=== PATIENT | female | born 1940 | race Caucasian/White ===

== ENCOUNTER 2017-07-14 07:18 | Observation (INO) ==
--- NOTE | 2017-07-14 07:29 | Emergency Department Note ---
Disposition Clinical Impression: NSTEMI (non-ST elevated myocardial infarction), New onset a-fib Disposition: Admitted As Inpatient Condition: Good General Adult HPI - General Stated complaint: Chest pain, MAGO Time Seen by Provider: 07/14/17 07:21 Source: EMS Limitations: no limitations - History of Present Illness Pain Scale: 8 - Related Data Home Medications Medication Instructions Recorded Confirmed Albuterol Sulfate [Proair Hfa] 2 puff IH Q4H PRN 07/14/17 07/14/17 Amlodipine Besylate 10 mg PO DAILY 07/14/17 07/14/17 Furosemide [Lasix] 20 mg PO BID 07/14/17 07/14/17 Gabapentin [Neurontin] 300 mg PO TID 07/14/17 07/14/17 Levothyroxine Sodium [Levoxyl] 50 mcg PO DAILY 07/14/17 07/14/17 Metoprolol Tartrate [Lopressor] 50 mg PO DAILY 07/14/17 07/14/17 [place]-3 Fatty Acids [Fish Oil 3,000 mg PO DAILY 07/14/17 07/14/17 Concentrate] Omeprazole [PriLOSEC] 20 mg PO BIDAC 07/14/17 07/14/17 Potassium Chloride [K-Tab ER] 20 meq PO BID 07/14/17 07/14/17 Sulfamethoxazole/Trimeth DS 1 tab PO Q48H 07/14/17 07/14/17 [Bactrim DS] traZODone [TraZODone] 150 mg PO HS 07/14/17 07/14/17 Allergies Allergy/AdvReac Type Severity Reaction Status Date / Time lisinopril Allergy Difficulty Verified 07/14/17 09:29 Breathing meloxicam Allergy Cough Verified 07/14/17 09:29 Awytwhw-Zwy-Izf Reductase Allergy Difficulty Verified 07/14/17 09:29 Inhibitor Swallowing [Statins] Past Medical History - Past Medical History Medical history: Reports: asthma, CHF, COPD, GERD, hyperlipidemia, hypertension , thyroid disease HAMMERER HELPER history: Reports: no HAMMERER HELPER history - Social History Smoking Status: Never smoker Smokeless Tobacco Status: No Alcohol use: Reports: none Drug use: Reports: none Physical Exam - General Limitations: no limitations General appearance: alert, anxious Course Vital Signs Temperature 97.3 F L 07/14/17 07:23 Pulse Rate 124 07/14/17 07:23 Respiratory Rate 24 04/05/18 07:23 Blood Pressure 95/72 07/14/17 07:23 O2 Sat by Pulse Oximetry 96 07/14/17 07:23 Temperature 98.2 F 07/14/17 14:37 Pulse Rate 84 07/14/17 14:37 Respiratory Rate 16 07/14/17 10:55 Blood Pressure 113/73 07/14/17 16:29 O2 Sat by Pulse Oximetry 95 07/14/17 14:37 Oxygen Delivery Oxygen Delivery Room Air Medical Decision Making - Lab Data Result diagrams: 07/14/17 07:43 07/14/17 07:43 Lab Results 07/14/17 07/14/17 07/14/17 Range/Units 07:39 07:43 07:43 WBC 9.3 (4.3-11.1) K/mcL RBC 5.01 H (3.82-4.97) M/mcL Hgb 13.5 (11.5-15.4) g/dL Hct 42.1 (35.3-44.9) % MCV 84.0 (83.0-100.0) fL MCH 26.9 L (28.0-33.3) pg MCHC 32.1 (31.6-35.5) g/dL RDW 14.0 (11.5-14.5) % Plt Count 318 (140-400) K/mcL MPV 9.6 (9.4-12.4) fL Immature Gran % 0.8 (0-4) % Seg Neutrophils % 67.6 % Lymphocytes % 23.2 % Monocytes % 6.1 % Eosinophils % 1.4 % Basophils % 0.9 % Neutrophils # 6.3 (1.6-8.9) K/mcL Lymphocytes # 2.2 (0.6-4.6) K/mcL Monocytes # 0.6 (0.0-1.3) K/mcL Eosinophils # 0.1 (0.0-0.6) K/mcL Basophils # 0.1 (0.0-0.2) K/mcL Nucleated RBCs/100 WBC 0.2 H (0) /100 WBC PT 11.1 (9.4-12.1) Seconds INR 1.0 Sodium (136-145) mEq/L Potassium (3.5-5.1) mEq/L Chloride (98-107) mEq/L Carbon Dioxide (23-29) mEq/L BUN (8-23) mg/dL Creatinine (0.60-1.20) mg/dL Est GFR ( Amer) (> 60) Est GFR (Non-Af Amer) (> 60) BUN/Creatinine Ratio (6-26) Glucose (70-105) mg/dL POC Glucose 119 H (70-99) mg/dL Calculated Osmolality (280-300) Calcium (8.6-10.3) mg/dL Magnesium (1.6-2.6) mg/dL Total Bilirubin (0.3-1.0) mg/dL AST (13-39) Units/L ALT (7-52) Units/L Alkaline Phosphatase (34-104) Units/L Troponin I (< 0.04) ng/mL B-Natriuretic Peptide (Less than 100) pg/mL Serum Total Protein (6.4-8.9) g/dL Albumin (3.5-5.7) g/dL Globulin (2.4-3.5) g/dL Albumin/Globulin Ratio (1.1-2.2) TSH (0.340-5.600) mcIU/mL 07/14/17 07/14/17 Range/Units 07:43 07:43 WBC (4.3-11.1) K/mcL RBC (3.82-4.97) M/mcL Hgb (11.5-15.4) g/dL Hct (35.3-44.9) % MCV (83.0-100.0) fL MCH (28.0-33.3) pg MCHC (31.6-35.5) g/dL RDW (11.5-14.5) % Plt Count (140-400) K/mcL MPV (9.4-12.4) fL Immature Gran % (0-4) % Seg Neutrophils % % Lymphocytes % % Monocytes % % Eosinophils % % Basophils % % Neutrophils # (1.6-8.9) K/mcL Lymphocytes # (0.6-4.6) K/mcL Monocytes # (0.0-1.3) K/mcL Eosinophils # (0.0-0.6) K/mcL Basophils # (0.0-0.2) K/mcL Nucleated RBCs/100 WBC (0) /100 WBC PT (9.4-12.1) Seconds INR Sodium 140 (136-145) mEq/L Potassium 3.0 L (3.5-5.1) mEq/L Chloride 111 H (98-107) mEq/L Carbon Dioxide 24 (23-29) mEq/L BUN 9 (8-23) mg/dL Creatinine 0.85 (0.60-1.20) mg/dL Est GFR ( Amer) > 60 (> 60) Est GFR (Non-Af Amer) > 60 (> 60) BUN/Creatinine Ratio 11 (6-26) Glucose 143 H (70-105) mg/dL POC Glucose (70-99) mg/dL Calculated Osmolality 291 (280-300) Calcium 9.5 (8.6-10.3) mg/dL Magnesium 1.8 (1.6-2.6) mg/dL Total Bilirubin 0.4 (0.3-1.0) mg/dL AST 16 (13-39) Units/L ALT 18 (7-52) Units/L Alkaline Phosphatase 66 (34-104) Units/L Troponin I 0.04 H* (< 0.04) ng/mL B-Natriuretic Peptide 78 (Less than 100) pg/mL Serum Total Protein 5.9 L (6.4-8.9) g/dL Albumin 3.9 (3.5-5.7) g/dL Globulin 2.0 L (2.4-3.5) g/dL Albumin/Globulin Ratio 2.0 (1.1-2.2) TSH 2.683 (0.340-5.600) mcIU/mL Critical Care Time Critical Care Time: Yes Total Critical Care Time: 30 Attestation: The high probability of a clinically significant, sudden or life threatening deterioration of the [] system(s) required my full and direct attention, intervention and personal management. The aggregate critical care time was [] minutes. This time is in addition to time spent performing reported procedures but includes the following: [] Data Review and interpretation [] Patient assessment and monitoring of vital signs [] Documentation [] Medication orders and management Attestation Statement - Attestation Attestation: I examined this patient and my medical decision-making was reviewed with the Resident Physician. I agree with the documented findings, disposition and treatment plan as described except to the extent set forth below. Jfvk-dw-hijk time provided Patient arrives by EMS complaining of chest pain. No previous history of coronary artery disease. Narrow complex irregularly irregular rhythm identified on telemetry. ECG reviewed by me showing atrial fibrillation with RVR. IV Cardizem initiated.
[2017-07-14] MEDS ORDERED: *HR* FentaNYL (PF) 100 MCG/2 ML VIAL IVP ONE (07:48)
--- NOTE | 2017-07-14 07:52 | Emergency Department Note ---
Disposition Clinical Impression: NSTEMI (non-ST elevated myocardial infarction), New onset a-fib Disposition: Admitted As Inpatient Condition: Good Referrals: Davi Hodges [Primary Care Provider] - Forms: ED Satisfaction Letter Time of Disposition: 09:58 General Adult HPI - General Chief complaint: ED Chest Pain Stated complaint: Chest pain, MAGO Time Seen by Provider: 07/14/17 07:21 Source: patient, EMS Mode of arrival: EMS Limitations: no limitations Nursing Notes Reviewed: Yes Vital Signs Reviewed: Yes - History of Present Illness HPI Narrative: 76-year-old female with significant past medical history of COPD and CHF presenting to the emergency department with chief complaint of chest pain. Patient states at 4:30 this morning she awoke out of sleep with severe substernal chest pain that radiated down her bilateral arms and up her jaw on both sides. She states she felt nauseous and diaphoretic. Patient denies any cardiac history. Denies any on any anticoagulation. She states she is still having 7 out of 10 chest pain at this time. Patient denies any recent illnesses or fevers. She does state for the past few months she has had increased dyspnea on exertion but she associated this with her COPD. Pain Scale: 8 - Related Data Home Medications Medication Instructions Recorded Confirmed Albuterol Sulfate [Proair Hfa] 2 puff IH Q4H PRN 07/14/17 07/14/17 Amlodipine Besylate 10 mg PO DAILY 07/14/17 07/14/17 Furosemide [Lasix] 20 mg PO BID 07/14/17 07/14/17 Gabapentin [Neurontin] 300 mg PO TID 07/14/17 07/14/17 Levothyroxine Sodium [Levoxyl] 50 mcg PO DAILY 07/14/17 07/14/17 Metoprolol Tartrate [Lopressor] 50 mg PO DAILY 07/14/17 07/14/17 [place]-3 Fatty Acids [Fish Oil 3,000 mg PO DAILY 07/14/17 07/14/17 Concentrate] Omeprazole [PriLOSEC] 20 mg PO BIDAC 07/14/17 07/14/17 Potassium Chloride [K-Tab ER] 20 meq PO BID 07/14/17 07/14/17 Sulfamethoxazole/Trimeth DS 1 tab PO Q48H 07/14/17 07/14/17 [Bactrim DS] traZODone [TraZODone] 150 mg PO HS 07/14/17 07/14/17 Allergies Allergy/AdvReac Type Severity Reaction Status Date / Time lisinopril Allergy Difficulty Verified 07/14/17 09:29 Breathing meloxicam Allergy Cough Verified 07/14/17 09:29 Hqwmrke-Zqb-Vcc Reductase Allergy Difficulty Verified 07/14/17 09:29 Inhibitor Swallowing [Statins] All systems ED: reviewed and negative except as stated. Cardiovascular: Reports: chest pain, dyspnea on exertion Respiratory: Reports: dyspnea Past Medical History - Past Medical History Attestation: Yes The following information was validated with the patient. Medical history: Reports: asthma, CHF, COPD, GERD, hyperlipidemia, hypertension , thyroid disease COMMUNICATION SPECIALIST history: Reports: no COMMUNICATION SPECIALIST history - Social History Smoking Status: Never smoker Smokeless Tobacco Status: No Alcohol use: Reports: none Drug use: Reports: none Physical Exam - General Limitations: no limitations General appearance: alert - Head Head exam: atraumatic, normocephalic, normal inspection - Eye Eye exam: Present: normal appearance. Absent: scleral icterus, conjunctival injection - ENT ENT exam: normal exam, mucous membranes moist - Neck Neck exam: Present: normal inspection, full ROM. Absent: tenderness, meningismus - Chest Chest inspection: Present: normal inspection, symmetric chest wall rise. Absent : tenderness, rash - Respiratory Respiratory exam: Present: normal lung sounds bilaterally. Absent: respiratory distress, wheezes, stridor - Cardiovascular Cardiovascular exam: Present: tachycardia, irregular rhythm - Abdominal Exam Abdominal exam: Present: soft, Non-Tender. Absent: distention, guarding, rebound - Extremities Exam Extremities exam: Present: normal inspection, full ROM - Neurological Exam Neurological exam: Present: alert, oriented X3 - Psychiatric Psychiatric exam: Present: normal affect, normal mood - Skin Skin exam: Present: warm, intact Course Course Narrative: 76-year-old female presenting to the emergency Department chief complaint chest pain. On examination patient has an irregular tachycardic heart rate. EKG shows atrial fibrillation with RVR. Patient has had no diagnosis of A. fib in the past. Patient also slightly hypotensive with systolic in the 90s. Otherwise physical exam within normal limits. We will provide the patient with a liter of fluids and full dose aspirin. We will perform a chest pain workup including troponin, EKG and chest x-ray. Also perform a CTA of the chest. Patient is alert and oriented 3. Disposition most likely admission but pending results. Patient agrees with this plan. - Reevaluation(s) Reevaluation #1: Patient's laboratory analysis shows elevated troponin at 0.04. Otherwise within normal limits. Chest x-ray within normal limits. CTA of the chest was performed to rule out PE due to patient's tachycardia and hypotension. This is also within normal limits beyond a lung nodule noted. Patient is alert and oriented 3 in the room. Blood pressure has been stable in the 90s systolic. We will add fluid liter boluses as needed for hypotension. Heart rate now less than 120. We will plan to admit the patient at this time for new onset atrial fibrillation and and elevated troponin. Patient agrees with this plan. I spoke with the hospitalist on-call Dr. Faria who agrees to accept the patient at this time. He would like us to add low-dose ACS heparin. I spoke with the patient who denies any rectal bleeding, hematuria, gingival bleeding or any history of GI bleed. Vital Signs Temperature 97.3 F L 07/14/17 07:23 Pulse Rate 124 07/14/17 07:23 Respiratory Rate 24 07/14/17 07:23 Blood Pressure 95/72 07/14/17 07:23 O2 Sat by Pulse Oximetry 96 07/14/17 07:23 Temperature 97.3 F L 07/14/17 07:23 Pulse Rate 104 07/14/17 09:37 Respiratory Rate 18 07/14/17 08:35 Blood Pressure 99/72 07/14/17 09:37 O2 Sat by Pulse Oximetry 93 07/14/17 09:37 Oxygen Delivery Oxygen Delivery Room Air Medical Decision Making - Lab Data Result diagrams: 07/14/17 07:43 07/14/17 07:43 Lab Results 07/14/17 07/14/17 07/14/17 Range/Units 07:43 07:43 07:43 WBC 9.3 (4.3-11.1) K/mcL RBC 5.01 H (3.82-4.97) M/mcL Hgb 13.5 (11.5-15.4) g/dL Hct 42.1 (35.3-44.9) % MCV 84.0 (83.0-100.0) fL MCH 26.9 L (28.0-33.3) pg MCHC 32.1 (31.6-35.5) g/dL RDW 14.0 (11.5-14.5) % Plt Count 318 (140-400) K/mcL MPV 9.6 (9.4-12.4) fL Immature Gran % 0.8 (0-4) % Seg Neutrophils % 67.6 % Lymphocytes % 23.2 % Monocytes % 6.1 % Eosinophils % 1.4 % Basophils % 0.9 % Neutrophils # 6.3 (1.6-8.9) K/mcL Lymphocytes # 2.2 (0.6-4.6) K/mcL Monocytes # 0.6 (0.0-1.3) K/mcL Eosinophils # 0.1 (0.0-0.6) K/mcL Basophils # 0.1 (0.0-0.2) K/mcL Nucleated RBCs/100 WBC 0.2 H (0) /100 WBC PT 11.1 (9.4-12.1) Seconds INR 1.0 Sodium 140 (136-145) mEq/L Potassium 3.0 L (3.5-5.1) mEq/L Chloride 111 H (98-107) mEq/L Carbon Dioxide 24 (23-29) mEq/L BUN 9 (8-23) mg/dL Creatinine 0.85 (0.60-1.20) mg/dL Est GFR ( Amer) > 60 (> 60) Est GFR (Non-Af Amer) > 60 (> 60) BUN/Creatinine Ratio 11 (6-26) Glucose 143 H (70-105) mg/dL Calculated Osmolality 291 (280-300) Calcium 9.5 (8.6-10.3) mg/dL Magnesium 1.8 (1.6-2.6) mg/dL Total Bilirubin 0.4 (0.3-1.0) mg/dL AST 16 (13-39) Units/L ALT 18 (7-52) Units/L Alkaline Phosphatase 66 (34-104) Units/L Troponin I 0.04 H* (< 0.04) ng/mL B-Natriuretic Peptide (Less than 100) pg/mL Serum Total Protein 5.9 L (6.4-8.9) g/dL Albumin 3.9 (3.5-5.7) g/dL Globulin 2.0 L (2.4-3.5) g/dL Albumin/Globulin Ratio 2.0 (1.1-2.2) TSH 2.683 (0.340-5.600) mcIU/mL 07/14/17 Range/Units 07:43 WBC (4.3-11.1) K/mcL RBC (3.82-4.97) M/mcL Hgb (11.5-15.4) g/dL Hct (35.3-44.9) % MCV (83.0-100.0) fL MCH (28.0-33.3) pg MCHC (31.6-35.5) g/dL RDW (11.5-14.5) % Plt Count (140-400) K/mcL MPV (9.4-12.4) fL Immature Gran % (0-4) % Seg Neutrophils % % Lymphocytes % % Monocytes % % Eosinophils % % Basophils % % Neutrophils # (1.6-8.9) K/mcL Lymphocytes # (0.6-4.6) K/mcL Monocytes # (0.0-1.3) K/mcL Eosinophils # (0.0-0.6) K/mcL Basophils # (0.0-0.2) K/mcL Nucleated RBCs/100 WBC (0) /100 WBC PT (9.4-12.1) Seconds INR Sodium (136-145) mEq/L Potassium (3.5-5.1) mEq/L Chloride (98-107) mEq/L Carbon Dioxide (23-29) mEq/L BUN (8-23) mg/dL Creatinine (0.60-1.20) mg/dL Est GFR ( Amer) (> 60) Est GFR (Non-Af Amer) (> 60) BUN/Creatinine Ratio (6-26) Glucose (70-105) mg/dL Calculated Osmolality (280-300) Calcium (8.6-10.3) mg/dL Magnesium (1.6-2.6) mg/dL Total Bilirubin (0.3-1.0) mg/dL AST (13-39) Units/L ALT (7-52) Units/L Alkaline Phosphatase (34-104) Units/L Troponin I (< 0.04) ng/mL B-Natriuretic Peptide 78 (Less than 100) pg/mL Serum Total Protein (6.4-8.9) g/dL Albumin (3.5-5.7) g/dL Globulin (2.4-3.5) g/dL Albumin/Globulin Ratio (1.1-2.2) TSH (0.340-5.600) mcIU/mL - EKG Data EKG #1 EKG attestation: Yes I reviewed and interpreted this EKG. EKG results narrative: Atrial fibrillation with RVR. 147 bpm. QRS 79, QTC 370. No signs of acute ST segment elevation or ischemia.
[2017-07-14] MEDS ORDERED: 0.9 % Sodium Chloride 1,000 ML IVC ONE ×2 (07:56→09:33)
[2017-07-14 08:06] LABS: Basophils # 0.1 K/mcL (0.0-0.2); Basophils % 0.9 %; Eosinophils # 0.1 K/mcL (0.0-0.6); Eosinophils % 1.4 %; Hematocrit 42.1 % (35.3-44.9); Hemoglobin 13.5 g/dL (11.5-15.4); Immature Granulocytes % 0.8 % (0-4); Lymphocytes # 2.2 K/mcL (0.6-4.6); Lymphocytes % 23.2 %; Mean Corpuscular HGB Conc 32.1 g/dL (31.6-35.5); Mean Corpuscular Hemoglobin 26.9 pg (28.0-33.3); Mean Platelet Volume 9.6 fL (9.4-12.4); Monocytes # 0.6 K/mcL (0.0-1.3); Monocytes % 6.1 %; Neutrophils # 6.3 K/mcL (1.6-8.9); Nucleated Red Blood Cells 0.2 /100 WBC (0); Platelet Count 318 K/mcL (140-400); Red Blood Count 5.01 M/mcL (3.82-4.97); Segmented Neutrophils % 67.6 %
[2017-07-14 08:11] LABS: Prothrombin Time 11.1 Seconds (9.4-12.1)
[2017-07-14 08:18] LABS: Alanine Aminotransferase 18 Units/L (7-52); Albumin 3.9 g/dL (3.5-5.7); Alkaline Phosphatase 66 Units/L (34-104); Aspartate Amino Transferase 16 Units/L (13-39); BUN/Creatinine Ratio 11 (6-26); Bilirubin,Total 0.4 mg/dL (0.3-1.0); Blood Urea Nitrogen 9 mg/dL (8-23); Calcium 9.5 mg/dL (8.6-10.3); Carbon Dioxide 24 mEq/L (23-29); Chloride 111 mEq/L (98-107); Glucose 143 mg/dL (70-105); Magnesium 1.8 mg/dL (1.6-2.6); Osmolality,Calculated 291 (280-300); Sodium 140 mEq/L (136-145); Total Protein 5.9 g/dL (6.4-8.9); eGFR For African Americans > 60 (> 60); eGFR For Non-African Americans > 60 (> 60)
[2017-07-14 08:21] LABS: Troponin I 0.04 ng/mL (< 0.04)
[2017-07-14] MEDS ORDERED: Aspirin 81 MG TAB.CHEW PO ONE (08:25)
[2017-07-14 08:32] LABS: Thyroid Stimulating Hormone 2.683 mcIU/mL (0.340-5.600)
[2017-07-14] MEDS ORDERED: 0.9 % Sodium Chloride 1,000 ML ONE (09:31)
[2017-07-14] MEDS ORDERED: *HR* Heparin 5,000 UNIT/ML VIAL IVP PRN ×2 (09:57)
[2017-07-14] MEDS ORDERED: *HR* Heparin 5,000 UNIT/ML VIAL IVP ONE (09:57)
[2017-07-14] MEDS: Heparin 25,000 UNIT/500 ML D5W 25,000 UNIT/500 ML BAG IVC SCH (10:26)
--- NOTE | 2017-07-14 12:25 | Internal Med History&Physical ---
Date of Encounter: 07/14/17 Time of Encounter: 11:40 Internal Medicine - H&P: HPI Chief complaint: SOB and chest pain Admitted From: Emergency Dept Plans for Post Hospital Care: Home History of present illness: 76-year-old woman who presented to the ER this am c/o retrosternal chest pain radiating down both arms and to bilateral mandible as well as her back. The symptoms began at approximately 4:30 am and woke her from sleep. She was not under stress and had not been exerting herself prior to the onset of symptoms. The pain was 7-8/8 and sharp and lasted persisted until she arrived in the ER. She was given aspirin 325 mg. Her initial troponin is mildly elevated (0.04) and her ECG showed A-Fib with RVR (rate in 140s). She has no history of CAD or AFib. She does have a PMH of COPD and CHF. Her potassium was low (3.0) and her Chloride elevated ( 111) and she reports several days of N/V and diarrhea. This am she became nauseous again but did not vomt. She has no history of GIB, PUD or bleedings. She was started on a Heparin drip for A-Fib. A cardizem drip was started and her rate is now in the 100-110 range. She is now cp free and otherwise hemodynamically stable. She's afebrile with a normal wbc and no signs of infection. A CTA-Chest was done to r/u PE and no PE, or acute processes were noted. A small 5 mm lung nodule was noted in the Left apex which will need followed. Past Med Surg Social Fam HX - Past Medical History Medical history: asthma, CHF, COPD, GERD, hyperlipidemia, hypertension, thyroid disease - Social History Smoking Status: Never smoker Smokeless Tobacco Status: No Alcohol use: none Drug use: none Internal Medicine - H&P: Meds Albuterol Sulfate [Proair Hfa] 2 puff IH Q4H PRN 07/14/17 [History] Amlodipine Besylate 10 mg PO DAILY 07/14/17 [History] Furosemide [Lasix] 20 mg PO BID 07/14/17 [History] Gabapentin [Neurontin] 300 mg PO TID 07/14/17 [History] Levothyroxine Sodium [Levoxyl] 50 mcg PO DAILY 07/14/17 [History] Metoprolol Tartrate [Lopressor] 50 mg PO DAILY 07/14/17 [History] [place]-3 Fatty Acids [Fish Oil Concentrate] 3,000 mg PO DAILY 07/14/17 [History] Omeprazole [PriLOSEC] 20 mg PO BIDAC 07/14/17 [History] Potassium Chloride [K-Tab ER] 20 meq PO BID 07/14/17 [History] Sulfamethoxazole/Trimeth DS [Bactrim DS] 1 tab PO Q48H 07/14/17 [History] traZODone [TraZODone] 150 mg PO HS 07/14/17 [History] 3 Allergy/AdvReac Type Severity Reaction Status Date / Time lisinopril Allergy Difficulty Verified 07/14/17 09:29 Breathing meloxicam Allergy Cough Verified 07/14/17 09:29 Nmwnvbv-Ghe-Mab Reductase Allergy Difficulty Verified 07/14/17 09:29 Inhibitor Swallowing [Statins] All Systems PM: A 10-system review of systems was performed and is negative for pertinent findings except as documented above in the HPI. - Constitutional Constitutional: no chills, no fever(s), no lethargy, no night sweats - EENT Eyes: no change in vision, no diplopia, no irritation Nose, mouth and throat: no bleeding gums, no dry mouth, no epistaxis - Cardiovascular Cardiovascular ROS IM: chest pain, diaphoresis, palpitations - Respiratory Respiratory: wheezing - Gastrointestinal Gastrointestinal: no hematemesis, no hematochezia, no melena - Genitourinary Genitourinary: no abnormal vaginal bleeding - Musculoskeletal Musculoskeletal ROS IM: no muscle weakness, no myalgias - Psychiatric Psychiatric: no hallucinations, no panic attacks, no visual hallucinations - Constitutional Vitals: Temp Pulse Resp BP Pulse Ox 97.3 F L 96 16 118/106 95 07/14/17 07:23 07/14/17 12:13 07/14/17 10:55 07/14/17 12:13 07/14/17 12:13 General appearance: Present: mild distress, A&O X 3, obese - Head Head exam: Present: atraumatic, normocephalic - Eye Eye exam: Present: EOMI, PERRL, conjuntiva pink, sclera anicteric Pupils: Present: PERRL - Neck Neck exam general surgery: Present: supple, trachea midline. Absent: lymphadenopathy, tenderness, nuchal rigidity, thyromegaly - Respiratory Respiratory exam: Present: wheezes. Absent: accessory muscle use, rales, rhonchi - Cardiovascular Cardiovascular exam: Present: irregular rhythm, +S1, +S2, tachycardia. Absent: diastolic murmur, gallop, JVD, RRR, rubs, systolic murmur - GI/Abdominal GI/Abdominal exam: Present: normal bowel sounds, soft, no peritoneal signs. Absent: distended, firm, guarding, rigid, tenderness - Extremities Exam Extremities exam: Present: warm. Absent: calf tenderness, cyanotic, pedal edema - Neurological Exam Neurological exam: Present: CN II-XII intact, oriented X3, no focal deficits. Absent: pronater drift, facial droop, speech deficit - Psychiatric Psychiatric exam: Present: normal affect, normal mood - Skin Skin exam: Present: dry, intact Internal Med - H&P Results - Labs CBC & Chem 7: 07/14/17 07:43 07/14/17 07:43 - VTE Documentation of Mechanical Device: Venous foot pump, device Deep Vein Thrombosis/Pulmonary Embolism Present on Admission: Yes - Assessment and plan (1) Chest pain Current Visit: Yes Status: Acute Assessment and plan: Adm. to telemetruy bed Initial troponin elevated Continue trending troponins On Asp, BB Check lipid panel Check HgbA1c Start statin Qualifiers: Chest pain type: precordial pain Qualified Code(s): R07.2 - Precordial pain (2) New onset a-fib Current Visit: Yes Status: Acute Assessment and plan: Currently on Cardizem drip. Heparin drip started for stroke prophylaxis Check Echo for valvular heart Consult cardiology Code(s): I48.91 - Unspecified atrial fibrillation (3) Elevated troponin Current Visit: Yes Status: Acute Assessment and plan: Likely type-II NSTEMI associated with demand ischemia associated with A-Fib RVR Continue aspirin and BB Continue trending Troponins Code(s): R74.8 - Abnormal levels of other serum enzymes (4) COPD without exacerbation Current Visit: Yes Status: Acute (5) Essential hypertension Current Visit: No Status: Chronic Assessment and plan: Continue home antihypertensive medications Code(s): I10 - Essential (primary) hypertension (6) Hypothyroidism Current Visit: No Status: Chronic Assessment and plan: TSH wnl Continue home dose of Synthroid. Qualifiers: Hypothyroidism type: acquired Qualified Code(s): E03.9 - Hypothyroidism, unspecified (7) DVT prophylaxis Current Visit: No Status: Acute Assessment and plan: On Heparin drip Continue SCDs - Time Spent With Patient Total time spent is greater than 50% in coordination of care (as documented) at patient's floor/unit and/or counseling patient:
[2017-07-14] MEDS: Gabapentin 300 MG CAPSULE PO SCH ×2 (16:58→20:44)
[2017-07-14] MEDS: Furosemide 20 MG TABLET PO SCH (16:58)
--- NOTE | 2017-07-14 17:22 | Electrocardiograph Report ---
[place] [facility] Test Date: 2017-07-14 Pat Name: Dora Hawley Department: 103 Room: 3A12 Gender: F Movie Critic: : 1940 Requested By: Jorge Luis Wilder Order Number: [id number] Reading MD: Pranay Astorga Measurements Intervals [place] Rate: 147 P: MD: 0 QRS: 23 QRSD: 79 T: -2 QT: 286 QTc: 370 Interpretive Statements ATRIAL FIBRILLATION WITH RAPID VENTRICULAR RESPONSE MODERATE ST DEPRESSION [0.05+ mV ST DEPRESSION] Electronically Signed On 07-14-2017 17:20:56 EDT by Pranay Astorga
[2017-07-14] MEDS ORDERED: 0.9 % Sodium Chloride 500 ML ONE (17:41)
[2017-07-14] MEDS: traZODone 50 MG TABLET PO SCH (20:44)
[2017-07-15 05:05] LABS: Basophils # 0.1 K/mcL (0.0-0.2); Eosinophils # 0.2 K/mcL (0.0-0.6); Eosinophils % 3.1 %; Hematocrit 35.9 % (35.3-44.9); Immature Granulocytes % 0.3 % (0-4); Lymphocytes # 2.2 K/mcL (0.6-4.6); Lymphocytes % 32.6 %; Mean Corpuscular HGB Conc 31.5 g/dL (31.6-35.5); Mean Corpuscular Hemoglobin 26.6 pg (28.0-33.3); Mean Corpuscular Volume 84.5 fL (83.0-100.0); Mean Platelet Volume 9.3 fL (9.4-12.4); Monocytes # 0.5 K/mcL (0.0-1.3); Monocytes % 6.8 %; Neutrophils # 3.9 K/mcL (1.6-8.9); Platelet Count 254 K/mcL (140-400); Red Blood Count 4.25 M/mcL (3.82-4.97); Red Cell Distribution Width 14.4 % (11.5-14.5); Segmented Neutrophils % 56.2 %
[2017-07-15 05:08] LABS: Hemoglobin 11.3 g/dL (11.5-15.4)
[2017-07-15 05:32] LABS: Alanine Aminotransferase 15 Units/L (7-52); Albumin 3.5 g/dL (3.5-5.7); Albumin/Globulin Ratio 1.8 (1.1-2.2); Alkaline Phosphatase 53 Units/L (34-104); Aspartate Amino Transferase 14 Units/L (13-39); BUN/Creatinine Ratio 7 (6-26); Bilirubin,Total 0.3 mg/dL (0.3-1.0); Blood Urea Nitrogen 5 mg/dL (8-23); Calcium 8.5 mg/dL (8.6-10.3); Carbon Dioxide 21 mEq/L (23-29); Chloride 113 mEq/L (98-107); Glucose 110 mg/dL (70-105); Osmolality,Calculated 292 (280-300); Potassium 3.8 mEq/L (3.5-5.1); Sodium 142 mEq/L (136-145); Total Protein 5.5 g/dL (6.4-8.9); eGFR For African Americans > 60 (> 60); eGFR For Non-African Americans > 60 (> 60)
[2017-07-15] MEDS ORDERED: 0.9 % Sodium Chloride 1,000 ML ONE ×3 (05:37→16:51)
[2017-07-15] MEDS: Gabapentin 300 MG CAPSULE PO SCH ×3 (08:21→20:15)
[2017-07-15] MEDS: Aspirin 81 MG TAB.CHEW PO SCH (08:21)
[2017-07-15] MEDS: Furosemide 20 MG TABLET PO SCH ×2 (08:21→20:15)
[2017-07-15] MEDS ORDERED: OMEGA PO SCH (09:00)
[2017-07-15] MEDS ORDERED: amLODIPine 5 MG TABLET PO SCH (09:00)
[2017-07-15] MEDS ORDERED: FATTY ACIDS PO SCH (09:00)
--- NOTE | 2017-07-15 12:31 | Internal Med Progress Note ---
Date of Encounter: 07/15/17 Time of Encounter: 12:29 - Assessment and plan (1) New onset a-fib Current Visit: Yes Status: Acute Assessment and plan: Currently on Cardizem drip. Transition to po cardizem, patient has converted to sinus overnight Heparin drip started for stroke prophylaxis Cardio eval is pending CHADs score-at least 3 for age, HTN, CHF Will need lobsterman anticoagulation Code(s): I48.91 - Unspecified atrial fibrillation (2) Elevated troponin Current Visit: Yes Status: Acute Assessment and plan: see below Code(s): R74.8 - Abnormal levels of other serum enzymes (3) Chest pain Current Visit: Yes Status: Acute Assessment and plan: Patient presented with typical CP Troponins 0.04-0.24-0.50 ECHO with preserved EF , no WMA, no significant valvular abnormalities On Asp, BB Continue heparin drip Cardology eval is pending, will follow recs Lipid panel and A1C is pending, will follow recs Qualifiers: Chest pain type: precordial pain Qualified Code(s): R07.2 - Precordial pain (4) COPD without exacerbation Current Visit: Yes Status: Chronic Assessment and plan: Patient with bronchiectasis on Bactrim DS every other day for maintenance continus same no wheezing on exam, not in exacerbation, continue duonebs prn, home meds (5) Essential hypertension Current Visit: Yes Status: Chronic Assessment and plan: Continue home antihypertensive medications Code(s): I10 - Essential (primary) hypertension (6) Hypothyroidism Current Visit: Yes Status: Chronic Assessment and plan: TSH wnl Continue home dose of Synthroid. Qualifiers: Hypothyroidism type: acquired Qualified Code(s): E03.9 - Hypothyroidism, unspecified (7) DVT prophylaxis Current Visit: Yes Status: Acute Assessment and plan: On Heparin drip Continue SCDs (8) Hypokalemia Current Visit: Yes Status: Acute Assessment and plan: replaced, corrected (9) Obesity Current Visit: Yes Status: Chronic Assessment and plan: lifestyle modification Qualifiers: Obesity classification: adult class 1 (BMI 30 - 34.9) Serious obesity comorbidity presence: without serious comorbidity Body mass index: BMI 33.0- 33.9 Qualified Code(s): E66.9 - Obesity, unspecified; Z68.33 - Body mass index (BMI) 33.0-33.9, adult; Z68.33 - Body mass index (BMI) 33.0-33.9, adult - Time Spent With Patient Total time spent is greater than 50% in coordination of care (as documented) at patient's floor/unit and/or counseling patient: - Subjective Interval history: Seen and examined at [facility] She repors her chest pain has rsolved No n/v/d, no SOB, no leg swelling HR is now controlled and regular on current meds, awaiting cardio eval ECHO showed preserved EF with no WMA and no significant valvular abnormalities - Constitutional Vitals: Temp Pulse Resp BP Pulse Ox 98.4 F 72 18 114/70 94 07/15/17 10:50 07/15/17 10:50 07/15/17 10:50 07/15/17 10:50 07/15/17 10:50 General appearance: Present: A&O X 3, no acute distress, obese - Head Head exam: Present: atraumatic, normocephalic - Eye Eye exam: Present: PERRL, conjuntiva pink, sclera anicteric Pupils: Present: PERRL - Neck Neck exam general surgery: Present: supple, trachea midline. Absent: lymphadenopathy - Respiratory Respiratory exam: Present: CTAB. Absent: accessory muscle use, rales, rhonchi, wheezes - Cardiovascular Cardiovascular exam: Present: RRR, +S1, +S2. Absent: diastolic murmur, gallop, rubs, systolic murmur - GI/Abdominal GI/Abdominal exam: Present: normal bowel sounds, soft, no peritoneal signs. Absent: distended, tenderness - Extremities Exam Extremities exam: Present: warm, radial pulses palpable and symmetrical. Absent : calf tenderness, cyanotic, pedal edema - Neurological Exam Neurological exam: Present: alert, CN II-XII intact, oriented X3, no focal deficits. Absent: pronater drift, facial droop, speech deficit - Skin Skin exam: Present: dry, intact Internal Medicine: Result - Labs CBC & Chem 7: 07/15/17 04:49 07/15/17 04:49 Labs: Short CBC 07/15/17 Range/Units 04:49 WBC 6.9 (4.3-11.1) K/mcL Hgb 11.3 L D (11.5-15.4) g/dL Hct 35.9 (35.3-44.9) % Plt Count 254 (140-400) K/mcL Neutrophils # 3.9 (1.6-8.9) K/mcL BMP 07/15/17 04:49 Sodium 142 Potassium 3.8 D Chloride 113 H Carbon Dioxide 21 L BUN 5 L Creatinine 0.73 Glucose 110 H Calcium 8.5 L Cardiac Enzymes 07/14/17 Range/Units 20:42 Troponin I 0.50 H* (< 0.04) ng/mL Liver Function 07/15/17 Range/Units 04:49 Total Bilirubin 0.3 (0.3-1.0) mg/dL AST 14 (13-39) Units/L ALT 15 (7-52) Units/L Alkaline Phosphatase 53 (34-104) Units/L Albumin 3.5 (3.5-5.7) g/dL - ABG Interpretation ABG results: PT/INR, D-dimer PT 11.1 Seconds (9.4-12.1) 07/14/17 07:43 - VTE Documentation of Mechanical Device: Venous foot pump, device Deep Vein Thrombosis/Pulmonary Embolism Present on Admission: Yes Consult Discharge Plan - Plan Referrals: Davi Hodges [Primary Care Provider] -
[2017-07-15] MEDS ORDERED: Sulfamethoxazole/Trimeth DS 1 EACH TABLET PO SCH (14:00)
[2017-07-15] MEDS: Heparin 25,000 UNIT/500 ML D5W 25,000 UNIT/500 ML BAG IVC SCH ×2 (14:53→23:53)
[2017-07-15] MEDS ORDERED: Heparin 1,000 UNITS/500 mL 500 ML ONE (15:54)
[2017-07-15] MEDS ORDERED: ISOVUE-370 200 ML INFUS..BTL IV ONE ×2 (15:54→17:58)
[2017-07-15] MEDS ORDERED: Verapamil 5 MG/2 ML VIAL ONE (15:54)
[2017-07-15] MEDS ORDERED: *HR* Heparin 10,000 UNIT/10 ML VIAL ONE (15:54)
[2017-07-15] MEDS ORDERED: Nitroglycerin 1,000 MCG/10 ML VIAL IV ONE ×2 (15:55→17:36)
--- NOTE | 2017-07-15 15:57 | Cardiology Consult Note ---
Date of Encounter: 07/15/17 Time of Encounter: 15:55 Assessment and Plan (1) NSTEMI (non-ST elevated myocardial infarction) Current Visit: Yes Status: Acute LHC, R/B/A d/w patient and she agrees to proceed. (2) New onset a-fib Current Visit: Yes Status: Acute Possibly ischemia induced, on heparin will switch to NOAC post LHC on discharge. In NSR on CCB just switched to PO Discussion w patient/family: The assessment and plan as outlined above was discussed with the patient and/or family members who expressed understanding and agreement. All questions were answered. Thank you for involving us in the care of your patient. Please call with any questions. History of Present Illness Consult date: 07/15/17 Consult reason: NSTEMI Chief complaint: Chest Pain History of present illness: Ms. Hawley is a 76 year old female h/o HTN, COPD presents with Chest pain found to have elevated trops peak at .5 and diagnosed with new onset Afib. She is on a Heparin drip without any further complaints of chest pain and has converted to NSR on a cardiazem drip. EKG shows ST changes suggestive of ischemia anterolateral. ECHO preserved EF without major valvular abnormalities. Past Med Surg Social Fam HX - Past Medical History Medical history: asthma, CHF, COPD, GERD, hyperlipidemia, hypertension, thyroid disease Psychiatric history: no psych history - Social History Smoking Status: Never smoker Smokeless Tobacco Status: No Alcohol use: none Drug use: none Medications and Allergies Albuterol Sulfate [Proair Hfa] 2 puff IH Q4H PRN 07/14/17 [History] Amlodipine Besylate 10 mg PO DAILY 07/14/17 [History] Furosemide [Lasix] 20 mg PO BID 07/14/17 [History] Gabapentin [Neurontin] 300 mg PO TID 07/14/17 [History] Levothyroxine Sodium [Levoxyl] 50 mcg PO DAILY 07/14/17 [History] Metoprolol Tartrate [Lopressor] 50 mg PO DAILY 07/14/17 [History] [place]-3 Fatty Acids [Fish Oil Concentrate] 3,000 mg PO DAILY 07/14/17 [History] Omeprazole [PriLOSEC] 20 mg PO BIDAC 07/14/17 [History] Potassium Chloride [K-Tab ER] 20 meq PO BID 07/14/17 [History] Sulfamethoxazole/Trimeth DS [Bactrim DS] 1 tab PO Q48H 07/14/17 [History] traZODone [TraZODone] 150 mg PO HS 07/14/17 [History] 3 Allergy/AdvReac Type Severity Reaction Status Date / Time lisinopril Allergy Difficulty Verified 07/14/17 09:29 Breathing meloxicam Allergy Cough Verified 07/14/17 09:29 Ihhzmai-[id number]-Cuo Reductase Allergy Difficulty Verified 07/14/17 09:29 Inhibitor Swallowing [Statins] All Systems Review: The remainder of the systems were reviewed and are negative Physical Examination Vital Signs, Last 4 Hours Temp Pulse Resp BP Pulse Ox 07/15/17 14:59 98.2 F 73 18 117/75 95 General: Conversant, No Apparent Distress HEENT: Atraumatic, Normocephaly, Mucus Membranes Moist Neck: No JVD, Normal carotid pulses Cardiac: Reg Rate and Rhythm, Normal S1 and S2, No Murmur Lungs: Normal Breath Sounds, No Wheeze, Rales, Rhonchi Neuro: Alert and responsive, No focal deficits noted Abdomen: Soft, Non-Tender Skin: No rashes noted on visualized skin Musculoskeletal: No Chest Wall Tenderness Extremities: No Clubbing, No Cyanosis, No Edema, Normal Pulses Results 07/15/17 04:49 07/15/17 04:49 Lab Results 07/14/17 07/14/17 07/14/17 15:43 20:42 22:36 WBC Hgb Hct Plt Count APTT 107.2 H 67.3 H Sodium Potassium Chloride Carbon Dioxide BUN Creatinine Glucose Calcium Total Bilirubin AST ALT Alkaline Phosphatase Troponin I 0.50 H* 07/15/17 07/15/17 07/15/17 04:49 04:49 04:49 WBC 6.9 Hgb 11.3 L D Hct 35.9 Plt Count 254 APTT 81.1 H Sodium 142 Potassium 3.8 D Chloride 113 H Carbon Dioxide 21 L BUN 5 L Creatinine 0.73 Glucose 110 H Calcium 8.5 L Total Bilirubin 0.3 AST 14 ALT 15 Alkaline Phosphatase 53 Troponin I Consult Discharge Plan - Plan Referrals: Davi Hodges [Primary Care Provider] -
--- NOTE | 2017-07-15 16:30 | Pre-Sedation Evaluation ---
Pre-sedation evaluation - Pre-sedation checklist Date of procedure: 07/15/17 Procedure: heart cath Recent Vitals: Last Vital Signs Temp 98.2 F 07/15/17 14:59 Pulse 73 07/15/17 14:59 Resp 18 07/15/17 14:59 BP 117/75 07/15/17 14:59 Pulse Ox 95 07/15/17 14:59 H&P (including ROS) documented in medical record: Yes Previous reaction to sedatives/anesthetics: No Dietary Status: No solid food in preceding 4 hrs and no liquid in preceding 2 hrs Dentition: dentures removed ASA Classification *see protocol: CLASS II-Mild systemic disease Plan of Care: Pt appropriate candidate for procedure/moderate/conscious sedation , Risks/benefits of procedure/sedation discussed w/ patient/family
[2017-07-15] MEDS ORDERED: *HR* Midazolam HCl 2 MG/2 ML VIAL ONE (16:50)
[2017-07-15] MEDS ORDERED: *HR* FentaNYL (PF) 100 MCG/2 ML VIAL ONE ×2 (16:51→17:56)
[2017-07-15] MEDS ORDERED: Tirofiban 12.5 MG/250ML 12.5 MG/250 ML BAG ONE (18:06)
--- NOTE | 2017-07-15 18:37 | Invasive Diagnostic Lab Proc ---
Name: Dora Hawley Date of Study: 07/15/2017 Date: 1940 Ht: 63.0in Medical Record#: [id number] Age: 76 Wt: 189.60lb Gender: Female BSA: 1.89 Order #: [id number] BMI: 33.59 Physicians Procedure Physician: Rory Sierra MD, [facility] Referring MD: Referring MD: Staff Name Position Time In Delia Mohr RT (R) Monitor 04:37 PM PaytonMarline RT (R) Scrub 04:37 PM Keke Couch RN [employer] 04:48 PM Christiana Villatoro RN Monitor 05:32 PM Delia Mohr RT (R) Scrub 05:33 PM Troy Ford RN Nurse 06:18 PM Indications Indication Non-Stemi Procedures Performed Procedure L HRT ARTERY/VENTRICLE ANGIO PRQ CARD RANDI STENT W/ANGIO 1 VSL PRQ CARDIAC ANGIO ADDL ART Pre-Procedure Checklist Informed consent is complete signed and on chart. H&P is on chart. ID band is on and ID verified with patient. Patient NPO for procedure The procedure was described for the patient and questions were answered. Blood Pressure: 155/89 ECG is on chart. Rhythm: NSR Plan of Care Patient will tolerate the procedure without complications. Adequate level of comfort will be maintained. Hemodynamics will remain stable Patient will recover from procedure without complications. Respiratory function will be maintained. Cardiac rhythm will remain stable. Patient temperature will be maintained. Patient and/or family have verbalized understanding of the procedure. Patient Education Chief Complaint/Reason for Test: Cardiac Cath Developmental Category: Geriatric (65+ years) Developmentally Appropriate for Age: Yes Learning Barriers: None Education Needs: Procedure Education Method: Verbal Information Taught: Cardiac Cath Educational Evaluation: Able to repeat information Intravenous Access Time IV Size Location DC'd Fluid/Drip Rate Units RN 04:37 PM 18g 1 1/4" Peripheral-Lock On Arrival Rt Arm 04:37 PM 18g 1 1/4" Peripheral-Lock On Arrival Lt Antecubital 0.9NaCl 25 ml/hr Keke Couch RN Allergies lisinopril meloxicam Afylwfw-Unc-Yfy Reductase Inhibitor Vital Signs Time BP (mmHg) HR (bpm) O2 Sat. RR (bpm) LOC 04:45 PM 155 / 89 75 98 % 20 5 = Fully awake and oriented or at pre-proc level 04:45 PM / % 4 = Oriented but drowsy 05:00 PM / % 4 = Oriented but drowsy 05:15 PM / % 4 = Oriented but drowsy 04:47 PM 155 / 89 77 98 % 27 04:52 PM 148 / 89 77 98 % 21 04:57 PM 136 / 78 75 94 % 37 05:02 PM 134 / 83 73 97 % 23 05:07 PM 68 / 41 82 95 % 21 05:09 PM 125 / 77 79 95 % 24 05:12 PM 126 / 77 75 97 % 21 05:17 PM 143 / 75 75 94 % 30 05:22 PM 149 / 84 71 96 % 26 05:27 PM 152 / 91 76 97 % 26 05:32 PM 85 / 63 72 97 % 24 05:35 PM 139 / 123 71 96 % 17 05:37 PM 138 / 82 75 95 % 19 05:42 PM 144 / 81 76 95 % 26 05:48 PM 132 / 116 69 96 % 18 05:52 PM 138 / 71 71 95 % 22 05:58 PM 60 / 38 68 94 % 18 06:02 PM 154 / 53 70 89 % 18 Procedural Medications Time Medication Dose Units Method Given By 04:50 PM Oxygen 2 L/min nasal cannula Keke Couch RN 04:53 PM Versed 2 mg Intravenous Keke Couch RN 04:53 PM Fentanyl 50 mcg Intravenous Keke Couch RN 05:01 PM Lidocaine 2% 0.5 ml Subcutaneous Rory Sierra MD, FAC 05:06 PM Heparin 2000 units Nitroglycerin 200 mcg Verapamil 2.5 mg Intraarterial Rory Sierra MD, FACC 05:23 PM Heparin 3000 units Intravenous Keke Couch RN 05:24 PM Nitroglycerin 200 mcg Intracoronary Rory Sierra MD 05:27 PM Nitroglycerin 200 mcg Intracoronary Rory Sierra MD 05:30 PM Fentanyl 25 mcg Intravenous Keke Couch RN 05:35 PM Nitroglycerin 100 mcg Intracoronary Rory Sierra MD 05:40 PM Nitroglycerin 100 mcg Intracoronary Rory Sierra MD 05:51 PM Heparin 2000 units Intravenous Troy Ford RN 05:56 PM Nitroglycerin 150 mcg Intracoronary Rory Sierra MD 05:57 PM Fentanyl 50 mcg Intravenous Troy Ford RN 06:04 PM Nitroglycerin 150 mcg Intracoronary Rory Sierra MD 06:15 PM Aggrastat Bolus: 42 ml Intravenous Troy Ford RN 06:15 PM Aggrastat 12.5mg/250ml 15 ml/hr Intravenous Troy Ford RN ASA Classification: CLASS II- Mild systemic disease (i.e. well-controlled diabetes, hypertension, asthma, cigarette smoking) Federico Score Preprocedure Postprocedure Activity 2- Moves 4 extremities sustained head lift Activity 2- Moves 4 extremities sustained head lift Circulation 2- SBP +/= 20 points of pre-anesthetic level Circulation 2- SBP +/= 20 points of pre-anesthetic level Consciousness 2- Awake and alert oriented x 3 Consciousness 2- Awake and alert oriented x 3 O2 Saturation 2- Able to maintain O2 satruation of 92% on room air O2 Saturation 2- Able to maintain O2 satruation of 92% on room air Respiratory 2- Able to deep breathe and cough well Respiratory 2- Able to deep breathe and cough well Total Score 10 Total Score 10 Contrast Agent: Isovue Diagnostic Contrast: 245 ml Total Contrast: 245 ml Fluoro Dose: 1202 mGy Activated Clotting Time Time Seconds to Clot 05:23 PM 198 05:51 PM 255 Procedure Log Time Note Enter By 04:37 PM Pt arrived to agriculture laborer 1 at 16:37 twilson 04:37 PM Delia Mohr RT (R) Position: Monitor Time in: 16:37 twilson 04:37 PM Marline Cain RT (R) Position: Scrub Time in: 16:37 twilson 04:37 PM Patient charges- Angio tray pack, Navilyst 3mm J, Pulse Oximetry and ACIST tubing and transducer twilson 04:37 PM Case Delayed no twilson 04:39 PM ASA Class CLASS II- Mild systemic disease (i.e. well-controlled diabetes, hypertension, asthma, cigarette smoking) twilson 04:40 PM CathStat 04:45 PM Physician arrived 16:45 twilson 04:45 PM Meet and greet completed twilson 04:45 PM Sign in performed according to hospital policy. twilson 04:45 PM Procedure start 16:45 twilson 04:45 PM Time: 16:45 Patient comfortable and pain free: Yes twilson 04:45 PM Time: 16:45LOC: 5 = Fully awake and oriented or at pre-proc level twilson 04:46 PM Hair removed from procedure site in procedure lab using clippers. Right wrist prepped with Chloraprep by Delia Mohr (R), then patient was draped. Skin intact. tw 04:46 PM Hair removed from procedure site in procedure lab using clippers. Right groin prepped with Chloraprep by Delia Mohr (R), then patient was draped. Skin intact. twilson 04:46 PM Clinical Presentation: Non-STEMI twilson 04:46 PM Vitals capture started with the following parameters, Patient=Adult, Interval=5 min, Initial Wfrajyuq=022 mmHg, Deflation Rate=3 mmHg, Cuff placed on Right Arm 04:46 PM Recorded ECG: HR=85 Condition=Condition 1 04:47 PM HR=77 bpm, TVED=309/89 mmhg, SpO2=98.0 %, Resp=27 B/min 04:48 PM Keke Couch RN Position: [employer] Time in: 16:48 tw 04:51 PM Time: 16:50 Oxygen on at 2 L/min per nasal cannula [facility] 04:52 PM HR=77 bpm, ULGC=339/89 mmhg, SpO2=98.0 %, Resp=21 B/min 04:53 PM Time: 16:53 Versed 2 mg Intravenous Given by Keke Couch RN [facility] 04:53 PM Time: 16:53 Fentanyl 50 mcg Intravenous Given by Keke Couch RN [facility] 04:56 PM Pressure channel 1 zeroed. 04:57 PM HR=75 bpm, QWTW=232/78 mmhg, SpO2=94.0 %, Resp=37 B/min 05:00 PM Time: 16:45 Patient comfortable and pain free: Yes 05:00 PM Time: 16:45LOC: 4 = Oriented but drowsy tw 05:01 PM Time out performed according to hospital policy tw 05: PM Time: 17:01 0.5 ml Lidocaine 2% to right radial Subcutaneous Given by Rory Sierra MD, [facility] tw 05:02 PM HR=73 bpm, FTET=931/83 mmhg, SpO2=97.0 %, Resp=23 B/min 05:06 PM US used for access. twilson 05:06 PM Access obtained by percutaneous puncture. 6Fr 10cm Terumo Glidesheath sheath placed in right Radial artery. [id number] twilson 05:07 PM Time: 17:06 Patient given 2,000 units Heparin, 200 mcg Nitroglycerin, and 2.5 mg Verapamil Intraarterial by Rory Sierra MD, [facility]. This is given to reduce risk of vessel spasm and thrombosis. twilson 05:07 PM 5Fr TIG catheter inserted over the wire DNC twilson 05:07 PM HR=82 bpm, NIBP=68/41 mmhg, SpO2=95.0 %, Resp=21 B/min 05:08 PM NIBP STAT measurement started. 05:09 PM Wire removed, intact. twilson 05:09 PM HR=79 bpm, ZXEN=242/77 mmhg, SpO2=95.0 %, Resp=24 B/min 05:09 PM Recorded Pressure: Ao, HR=79, Condition=Condition 1 (Aorta) Ao 103/61/80 05:10 PM Wire reinserted. twilson 05:10 PM Catheter removed, intact. twilson 05:11 PM 5Fr FL3.5 catheter inserted over the wire [id number] twilson 05:12 PM Wire removed twilson 05:12 PM HR=75 bpm, LABX=123/77 mmhg, SpO2=97.0 %, Resp=21 B/min 05:12 PM Recorded Pressure: Ao, HR=75, Condition=Condition 1 (Aorta) Ao 106/64/81 05:12 PM LCA angiography performed in multiple views. twilson 05:13 PM Recorded Pressure: Ao, HR=77, Condition=Condition 1 (Aorta) Ao 100/54/72 05:14 PM Wire reinserted. twilson 05:14 PM Catheter removed, intact. twilson 05:14 PM 5Fr 3DRC catheter inserted over the wire [id number] twilson 05:15 PM Wire removed twilson 05:15 PM Time: 17:00LOC: 4 = Oriented but drowsy twilson 05:15 PM Time: 17:00 Patient comfortable and pain free: Yes twilson 05:15 PM RCA angiography performed in multiple views. twilson 05:16 PM Recorded Pressure: Ao, HR=75, Condition=Condition 1 (Aorta) Ao 112/72/91 05:16 PM Recorded Pressure: Ao, HR=75, Condition=Condition 1 (Aorta) Ao 109/70/89 05:17 PM Coronary Dominance: right twilson 05:17 PM Lesion found in Proximal RCA. Pre Stenosis: 30 Pre BLAS Flow: twilson 05:17 PM Lesion found in Mid RCA. Pre Stenosis: 60 Pre BLAS Flow: twilson 05:17 PM Lesion found in Distal RCA. Pre Stenosis: 60 Pre BLAS Flow: twilson 05:17 PM Right Coronary, Right Posterior Descending Arteries with Right Posterolateral and Acute Marginal branches with 60 % stenosis. If graft is supplying this area, 0 % stenosis twilson 05:17 PM Wire reinserted. twilson 05:17 PM Catheter removed twilson 05:17 PM HR=75 bpm, CAWS=616/75 mmhg, SpO2=94.0 %, Resp=30 B/min 05:18 PM 5Fr Pigtail catheter inserted over the wire [facility] twilson 05:18 PM Catheter selectively placed in left ventricle twilson 05:18 PM Recorded Pressure: LV, HR=75, Condition=Condition 1 (Left Ventricle) LV 111/16/67 05:18 PM Pressure channel 1 zero failed. 05:19 PM Pressure channel 1 zero failed. 05:19 PM Pressure channel 1 zeroed. 05:19 PM Recorded Pressure: LV, Ao, HR=75, Condition=Condition 1 (Left Ventricle) LV 129/17/29, (Aorta) Ao 122/68/95 05:20 PM Bolus angiogram of left Ventricle complete: 10 ml/sec for a total of 30 mls twilson 05:20 PM Catheter removed twilson 05:20 PM 6Fr RBL 3.5 Convey guide catheter was used to cannulate the PCI vessel successfully. reused? No twilson 05:21 PM .[address] [place] 180cm guide wire across target lesion- successful. reused? No twilson 05:22 PM Inflation device was opened. tw 05:22 PM HR=71 bpm, ZELG=512/84 mmhg, SpO2=96.0 %, Resp=26 B/min 05:23 PM At 17:23 the ACT was 198 seconds. tw 05: PM Time: 17:23 Heparin 3000 units Intravenous Given by Keke Couch RN 05:23 PM Recorded Pressure: Ao, HR=75, Condition=Condition 1 (Aorta) Ao 119/66/87 05:24 PM Time: 17:24 Nitroglycerin 200 mcg Intracoronary Given by Rory Sierra MD twilson 05:25 PM 2.0 mm x 12 mm Emerge Monorail balloon across target lesion- successful. reused? No twilson 05:26 PM Balloon inflated @ 10 gabriel for 15 seconds twilson 05: PM Balloon catheter removed intact. twilson 05: PM Time: 17:27 Nitroglycerin 200 mcg Intracoronary Given by Rory Sierra MD twilson 05: PM HR=76 bpm, ERXH=280/91 mmhg, SpO2=97.0 %, Resp=26 B/min 05:28 PM 2.5 mm x 15 mm Flextome Monorail cutting balloon across target lesion- successful. reused? No twilson 05:29 PM Lesion found in Mid Circumflex. Pre Stenosis: 60 Pre BLAS Flow: 3: Complete and Brisk Flow/Perfusion twilson 05:29 PM Lesion found in Distal Circumflex. Pre Stenosis: 70 Pre BLAS Flow: 3: Complete and Brisk Flow/Perfusion twilson 05:29 PM Lesion found in 1st Marginal. Pre Stenosis: 90 Pre BLAS Flow: 3: Complete and Brisk Flow/Perfusion twilson 05:29 PM Circumflex, Obtuse Marginal, Left Posterior Descending, and Left Posterolateral Coronary Arteries with 90 % stenosis. If graft is supplying this area, 0 % stenosis twilson 05:30 PM .014 [place] 180cm guide wire across target lesion- successful. reused? No In Circumflex twilson 05:30 PM Time: 17:15 Patient comfortable and pain free: Yes tw 05:30 PM Time: 17:15LOC: 4 = Oriented but drowsy twilson 05:30 PM Time: 17:30 Fentanyl 25 mcg Intravenous Given by Keke Couch RN twilson 05:31 PM NIBP STAT measurement started. 05:31 PM Recorded Pressure: Ao, HR=74, Condition=Condition 1 (Aorta) Ao 107/57/78 05:32 PM HR=72 bpm, NIBP=85/63 mmhg, SpO2=97.0 %, Resp=24 B/min 05:32 PM Christiana Villatoro RN Position: Monitor Time in: 17:32 to relieve Delia Mohr RT (R) twilson 05:33 PM Delia Mohr RT (R) Position: Scrub Time in: 17:33 to relieve Marline Cain RT (R) twilson 05:33 PM Cutting balloon catheter removed intact. twilson 05:33 PM 2.25 mm x 12mm NC Trek Rx balloon across target lesion- successful. reused? No twilson 05:34 PM NIBP STAT measurement started. 05:34 PM Balloon inflated @ 12 gabriel for 20 seconds twilson 05:35 PM Balloon inflated @ 12 gabriel for 13 seconds twilson 05:35 PM Time: 17:35 Nitroglycerin 100 mcg Intracoronary Given by Rory Sierra MD twilson 05:35 PM HR=71 bpm, UOHE=863/123 mmhg, SpO2=96.0 %, Resp=17 B/min 05:37 PM Balloon catheter removed intact. twilson 05:37 PM HR=75 bpm, UKSC=431/82 mmhg, SpO2=95.0 %, Resp=19 B/min 05:38 PM 2.5mm x 16mm Synergy drug-eluting stent across target lesion- successful Lot #[id number] twilson 05:40 PM Stent deployed @ 16 gabriel for 27 seconds twilson 05:41 PM Time: 17:40 Nitroglycerin 100 mcg Intracoronary Given by Rory Sierra MD twilson 05:42 PM HR=76 bpm, AVUR=653/81 mmhg, SpO2=95.0 %, Resp=26 B/min 05:43 PM Guide wire [place] removed intact. twilson 05:43 PM Stent delivery system removed intact. twilson 05:43 PM 2.5mm x 16mm Synergy drug-eluting stent across target lesion- successful Lot #[id number] twilson 05:44 PM Stent deployed @ 16 gabriel for 21 seconds twilson 05:45 PM Stent delivery system removed intact. twilson 05:45 PM 3.0 mm x 15mm NC Trek Rx balloon across target lesion- successful. reused? No twilson 05:46 PM Balloon inflated @ 18 gabriel for 15 seconds twilson 05:46 PM Balloon catheter removed intact. twilson 05:47 PM 3.5 mm x 12mm NC Trek Rx balloon across target lesion- successful. reused? No twilson 05:48 PM HR=69 bpm, ILSA=585/116 mmhg, SpO2=96.0 %, Resp=18 B/min 05:48 PM Balloon inflated @ 18 gabriel for 12 seconds twilson 05:49 PM Balloon inflated @ 16 gabriel for 12 seconds twilson 05:50 PM Balloon catheter removed intact. twilson 05:51 PM At 17:51 the ACT was 255 seconds. twilson 05:51 PM Time: 17:51 Heparin 2000 units Intravenous Given by Troy Ford RN twilson 05:51 [address] [place] wire reinserted twilson 05:52 PM HR=71 bpm, LBTT=104/71 mmhg, SpO2=95.0 %, Resp=22 B/min 05:54 PM 2.0 mm x 12mm NC Trek Rx balloon across target lesion- unsuccessful. reused? No twilson 05:56 PM Time: 17:56 Nitroglycerin 150 mcg Intracoronary Given by Rory Sierra MD twilson 05:57 PM Time: 17:57 Fentanyl 50 mcg Intravenous Given by Troy Ford RN twilson 05:58 PM HR=68 bpm, NIBP=60/38 mmhg, SpO2=94.0 %, Resp=18 B/min 05:59 PM Balloon catheter removed intact. twilson 05:59 PM 1.5 mm x 8 mm Emerge Monorail balloon across target lesion- successful. reused? No twilson 06:00 PM NIBP STAT measurement started. 06:02 PM HR=70 bpm, LZZM=678/53 mmhg, SpO2=89.0 %, Resp=18 B/min 06:02 PM Balloon inflated @ 14 gabriel for 13 seconds twilson 06:03 PM Balloon inflated @ 14 gabriel for 13 seconds twilson 06:04 PM Time: 18:04 Nitroglycerin 150 mcg Intracoronary Given by Rory Sierra MD twilson 06:04 PM Balloon catheter removed intact. twilson 06:05 PM Guide wire removed intact. twilson 06:05 PM Guide wire removed intact. twilson 06:05 PM Guide catheter removed intact. twilson 06:06 PM OM1 Jailed twilson 06:06 PM Procedure completed at 18:06 twilson 06:07 PM Did you address BLAS flow and Dominance? Yes twilson 06:07 PM Sign out completed: Radiation Dose 1201.76 mGy Fluoro Time: 18.6 Isovue 370 - 200ml contrast 245 ml given by Rory Sierra MD, [facility]. Complications: NoneCardiac Rehab Consult needed: YesConfirmed administered medications: Yes twilson 06:08 PM Isovue 370 - 200ml,2 Bottle(s) used. twilson 06:08 PM Arterial sheath pulled, Vasc Band closure device used and was Successful 15 S/N. twilson 06:09 PM 15 ml air in Vasc Band. twilson 06:09 PM Estimated Blood Loss: less than 20cc twilson 06:09 PM Post ECG NSR twilson 06:09 PM Vitals capture stopped. 06:09 PM Post Blood Pressure 143/75 twilson 06:09 PM 18:09 Post Pulses Rt Radial 1+ twilson 06:09 PM Information taught Cardiac Cath and PCI twilson 06:09 PM Education needs Procedure, Plan of Care, and Responsibilities of Patient in Care twilson 06:10 PM Learning barriers :None twilson 06:10 PM Education Methods Verbal twilson 06:10 PM Education evaluation Able to repeat information twilson 06:10 PM Site status No bleeding/hematoma - Rt Wrist as reported by Delia Mohr RT (R) at 18:10 twilson 06:10 PM Delay to floor No twilson 06:10 PM Complications: None twilson 06:10 PM Fluoro Time: 18.6 twilson 06:10 PM Isovue 370 - 200ml contrast [address] Sierra. twilson 06:10 PM Radiation Dose 1201.76 mGy twilson 06:15 PM Time: 18:15 Aggrastat Bolus: 42 ml Intravenous Given by Troy Ford RN [place] pump twilson 06:15 PM Time: 18:15 Aggrastat 12.5mg/250ml 15 ml/hr Intravenous Given by Troy Ford RN [place] pump twilson 06:16 PM add 2cc air to vasc band, total 17cc air twilson 06:18 PM Troy Ford RN Position: Nurse Time in: 18:18 twilson 06:28 PM Report given to Aida MEJIA Pt taken to E Room #33. 18:28 twilson 06:28 PM Patient out of room: 18:28 twilson Complications Complication None Hemodynamics Pressures Site Systolic/A Wave Diastolic/V Wave Mean AO 103 61 80 AO 106 64 81 AO 100 54 72 AO 112 72 91 AO 109 70 89 LV 111 16 67 LV 129 17 29 AO 122 68 95 AO 119 66 87 AO 107 57 78 Post Procedure Information Blood Pressure: 143/75 mmHg Rhythm: NSR Post procedural instructions were given Closure Device Time Device Success/Fail 07/15/2017 6:08:00 PM Mechanical Compression Successful Site Checks Time Location Status Staff Sheath In? Note 06:10 PM Rt Wrist No bleeding/hematoma Delia Mohr RT (R) Pulses Time Site Pre-Procedure Post-Procedure Note 07/15/2017 4:37:00 PM Bilateral DP & PT 2+ 07/15/2017 4:48:00 PM Rt Radial 1+ 6:09:00 PM Rt Radial 1+ Updated by Delia Mohr RT (R) on 07/15/2017 6:29:18 PM electronically signed on 07/15/2017 6:29:55 PM with status of Final
[2017-07-15] MEDS ORDERED: Acetaminophen 325 MG TABLET PO PRN (18:59)
[2017-07-15] MEDS ORDERED: Tirofiban 12.5 MG/250ML 12.5 MG/250 ML BAG IVC SCH (19:00)
[2017-07-15] MEDS ORDERED: Ondansetron 4 MG/2 ML VIAL IVP PRN (19:00)
[2017-07-15] MEDS: traZODone 50 MG TABLET PO SCH (20:15)
[2017-07-15] MEDS: Isosorbide MONOnitrate (24 HR) 30 MG TAB.ER.24H PO SCH (20:15)
[2017-07-15 21:37] LABS: Hematocrit 38.1 % (35.3-44.9); Hemoglobin 12.2 g/dL (11.5-15.4)
[2017-07-15] MEDS ORDERED: 0.9 % Sodium Chloride 1,000 ML IVC SCH (22:15)
[2017-07-16 06:08] LABS: Hematocrit 33.7 % (35.3-44.9); Hemoglobin 10.7 g/dL (11.5-15.4)
[2017-07-16 06:26] LABS: BUN/Creatinine Ratio 10 (6-26); Blood Urea Nitrogen 7 mg/dL (8-23); eGFR For African Americans > 60 (> 60); eGFR For Non-African Americans > 60 (> 60)
[2017-07-16] MEDS: Gabapentin 300 MG CAPSULE PO SCH ×3 (08:04→21:30)
[2017-07-16] MEDS: Aspirin 81 MG TAB.CHEW PO SCH (08:05)
[2017-07-16] MEDS: Isosorbide MONOnitrate (24 HR) 30 MG TAB.ER.24H PO SCH (08:05)
[2017-07-16] MEDS: Furosemide 20 MG TABLET PO SCH ×2 (08:05→17:06)
--- NOTE | 2017-07-16 10:51 | Cardiology Progress Note ---
Date of Encounter: 07/16/17 Time of Encounter: 10:49 Assessment and Plan (1) NSTEMI (non-ST elevated myocardial infarction) Current Visit: Yes Status: Acute Troponin 0.04, 0.24, 0.50. S/p LHC yesterday, severe 2 vessel CAD s/p successful intervention. EF 70%. Successful PTCA/RANDI to mLCx and distal LCx. Successful PTCA OM2. DAPT (ASA and Plavix) uninterrupted x 1 year. Pt verbalizes understanding. Continue Statin and BB. TTE EF preserved, mildly sclerotic AV. Right radial access site healing well. No bleeding or hematoma, mild ecchymosis noted. Cardiology signing off. Reconsult PRN. Will coordinate outpt follow-up in 1 week. (2) CAD (coronary artery disease) Current Visit: Yes Status: Acute As above, s/p PCI and PTCA. ASA, Plavix, Statin, BB, Imdur. Qualifiers: Coronary Disease-Associated Artery/Lesion type: [place] artery [place] vs. transplanted heart: ute heart Associated angina: angina presence unspecified Qualified Code(s): I25.10 - Atherosclerotic heart disease of ute coronary artery without angina pectoris (3) New onset a-fib Current Visit: Yes Status: Acute Possibly ischemia induced, presented in A-Fib, but since converted to SR. S/P LHC yesterday with PCI and PTCA. Continue BB and CCB. Discussed with Dr. Melton. Since this was first documented occurrence of A-Fib and thought to be ischemia induced, now in SR, will not start on anticoagulation at this time given she would be on triple therapy. She is on ASA and Plavix for her NSTEMI and s/p PCI. Consider holter monitor at follow-up and if recurrence A-Fib is documented, can then consider full anticoagulation. [id number] is 3 (Age, female, HTN). She is aware that she is at increased/high CVA risk if she goes back into A-Fib. Will stop heparin gtt. Discussion w patient/family: The assessment and plan as outlined above was discussed with the patient and/or family members who expressed understanding and agreement. All questions were answered. Thank you for involving us in the care of your patient. Please call with any questions. I will discuss all the above with Dr. Moussa and make changes as necessary. Subjective Principal diagnosis: NSTEMI, CAD s/p PCI Interval history: S/p LHC yesterday, severe 2 vessel CAD s/p successful intervention. EF 70%. Successful PTCA/RANDI to mLCx and distal LCx. Successful PTCA OM2. Currently SR on telemetry. Denies chest pain or dyspnea overnight. No acute cardiac complaints. Objective Vital Signs, Last 4 Hours Temp Pulse Resp BP Pulse Ox 07/16/17 07:24 97.6 F 74 16 106/51 96 Vital Signs Temp Pulse Resp BP Pulse Ox 07/16/17 07:24 97.6 F 74 16 106/51 96 07/16/17 06:00 60 128/73 07/16/17 03:07 97.9 F 67 19 101/64 94 07/16/17 00:30 97.6 F 71 20 122/62 94 07/16/17 00:06 97.6 F 70 20 93 07/15/17 23:42 64 18 130/69 93 07/15/17 23:39 97.7 F 68 18 130/69 93 07/15/17 23:27 97.7 F 67 18 89/73 94 07/15/17 22:47 97.4 F L 73 20 149/59 93 07/15/17 21:42 97.9 F 67 20 167/93 93 07/15/17 20:15 97.4 F L 65 20 161/90 95 07/15/17 19:16 97.9 F 68 17 148/79 94 07/15/17 18:45 97.9 F 68 17 148/79 94 07/15/17 14:59 98.2 F 73 18 117/75 95 Intake and Output 07/15/17 07/16/17 07/16/17 23:59 07:59 15:59 Intake Total 620 / 620 227 / 227 1278 / 1278 Output Total 1400 / 1400 1150 / 1150 Balance -780 / -780 -923 / -923 1278 / 1278 Intake: IV Fluids 500 / 500 127 / 127 1038 / 1038 0.9 % Sodium Chloride 1,000 ML 1000 / 1000 @ 100 mls/hr IVC .Q10H [facility] Rx#: [id number] Heparin 25,000 UNIT/500 ML D5W 500 / 500 127 / 127 38 / 38 25,000 unit In 500 ml @ 11.603 UNIT/KG/HR 20 mls/hr IVC .Q24H [facility] Rx#:[id number] Oral 120 / 120 100 / 100 240 / 240 Output: Urine 1400 / 1400 1150 / 1150 Other: Meal Lunch Breakfast Percent of Meal Consumed 50% 100% Weight 91 kg General: Conversant, No Apparent Distress HEENT: Atraumatic, Normocephaly, Mucus Membranes Moist Neck: No JVD, Normal carotid pulses Cardiac: Reg Rate and Rhythm, Normal S1 and S2, No Murmur Lungs: Normal Breath Sounds, No Wheeze, Rales, Rhonchi Neuro: Alert and responsive, No focal deficits noted Abdomen: Soft, Non-Tender Skin: Other (right radial access site healing well. No bleeding or hematoma noted. Mild ecchymosis.) Musculoskeletal: No Chest Wall Tenderness Extremities: No Clubbing, No Cyanosis, No Edema, Normal Pulses Results 07/16/17 05:40 07/16/17 05:40 Lab Results 07/15/17 07/15/17 07/16/17 20:53 22:52 05:40 Hgb 12.2 Hct 38.1 Plt Count APTT 22.8 L D 69.5 H D BUN Creatinine 07/16/17 07/16/17 05:40 05:40 Hgb 10.7 L D Hct 33.7 L Plt Count 245 APTT BUN 7 L Creatinine 0.71 Short CBC 07/16/17 07/15/17 Range/Units 05:40 20:53 Hgb 10.7 L D 12.2 (11.5-15.4) g/dL Hct 33.7 L 38.1 (35.3-44.9) % Plt Count 245 (140-400) K/mcL BMP 07/16/17 Range/Units 05:40 BUN 7 L (8-23) mg/dL Creatinine 0.71 (0.60-1.20) mg/dL Active Medications Acetaminophen (Tylenol) 650 mg PO Q6HR PRN PRN Reason: Mild Pain Stop: 01/14/18 19:00 Albuterol Sulfate (Albuterol Inhaler) 2 puff IH Q4H PRN PRN Reason: Shortness Of Breath Stop: 01/13/18 12:01 Aspirin (Aspirin) 81 mg PO DAILY [facility] Stop: 01/14/18 09:01 Last Admin: 07/16/17 08:05 Dose: 81 mg Clopidogrel Bisulfate (Plavix) 75 mg PO DAILY [facility] Stop: 01/15/18 09:01 Last Admin: 07/16/17 08:04 Dose: 75 mg Diltiazem HCl (Cardizem Cd) 120 mg PO DAILY [facility] Stop: 01/15/18 12:01 Furosemide (Lasix) 20 mg PO BIDDIURETIC [facility] Stop: 01/13/18 17:01 Last Admin: 07/16/17 08:05 Dose: 20 mg Gabapentin (Neurontin) 300 mg PO TID [facility] Stop: 01/13/18 15:01 Last Admin: 07/16/17 08:04 Dose: 300 mg Heparin Sodium (Porcine) (Heparin) 4,000 unit IVP Q6HR PRN PRN Reason: SEE COMMENTS Stop: 01/13/18 09:58 Heparin Sodium (Porcine) (Heparin) 2,000 unit IVP Q6H PRN PRN Reason: SEE COMMENTS Stop: 01/13/18 09:58 Heparin Sodium/Dextrose (Heparin 25,000 Unit/500 Ml D5w) 25,000 unit in 500 mls @ 20 mls/hr IVC .Q24H [facility]; 11.603 UNIT/KG/HR PRN Reason: Protocol Stop: 01/13/18 10:01 Last Titration: 07/16/17 10:05 Dose: 0 unit/kg/hr, 0 mls/hr Isosorbide Mononitrate (Imdur) 30 mg PO DAILY [facility] Stop: 01/14/18 19:31 Last Admin: 07/16/17 08:05 Dose: 30 mg Levothyroxine Sodium (Synthroid) 50 mcg PO 0630 [facility] Stop: 01/14/18 06:31 Last Admin: 07/16/17 06:10 Dose: 50 mcg Metoprolol Tartrate (Lopressor) 25 mg PO BID [facility] Stop: 01/15/18 09:01 Last Admin: 07/16/17 08:09 Dose: 25 mg Omeprazole (Prilosec) 20 mg PO BIDAC [facility] PRN Reason: Protocol Stop: 01/13/18 16:31 Last Admin: 07/16/17 08:05 Dose: 20 mg Ondansetron HCl (Zofran) 4 mg IVP Q6HR PRN; Protocol PRN Reason: Nausea And Vomiting Stop: 01/14/18 19:01 Potassium Chloride (Potassium Chloride) 20 meq PO BID [facility] Stop: 01/13/18 21:01 Last Admin: 07/16/17 08:05 Dose: 20 meq Trazodone HCl (Trazodone) 150 mg PO HS [facility] Stop: 01/13/18 21:01 Last Admin: 07/15/17 20:15 Dose: 150 mg Trimethoprim/Sulfamethoxazole (Bactrim Ds) 1 each PO Q48H [facility] Stop: 01/14/18 14:01 Last Admin: 07/15/17 14:52 Dose: 1 each - Imaging and Cardiology Echo: report reviewed Cardiac cath: report reviewed - EKG Interpretation EKG results cardiology: other (12 hr tele AVG HR 69, no significant pauses or arrhythmias) - VTE Documentation of Mechanical Device: Venous foot pump, device Deep Vein Thrombosis/Pulmonary Embolism Present on Admission: Yes Consult Discharge Plan - Plan Additional Instructions: RISK FACTORS: STOP SMOKING: If you smoke, STOP. Smoking or tobacco use significantly increases your risk of heart disease because nicotine causes the arteries to narrow or constrict. It also causes fats to stick to the artery. Your chances of having a heart attack are greatly increased if you continue to smoke. For more information, call the education line for smoking cessation 0-479-SVNDEVR EAT A LOW FAT/CHOLESTEROL/SODIUM DIET: This diet may help reduce your chances of having a heart attack. LIFTING: With affected extremity: Avoid bending, pushing off and lifting more than 2 pounds for 24 hours The following 48 hours, avoid lifting anything more than 5 pounds Avoid strenuous activity or repetitive motions ACTIVITY: You may walk or climb stairs as tolerated You can resume sexual activity as tolerated In general, you are encouraged to engage in a minimum of 30 minutes or more of moderate intensity physical activity, such as brisk walking, daily or at least 3 -4 times weekly BATHING Do not submerge the site into water (bath tub, hot tub, swimming pool, dishes) for 1 week. This can be a source for infection into the blood stream. You may shower after 24 hours SITE CARE: After 24 hours, you may remove the dressing and leave the site open to air. Keep the site clean and dry. Clean gently and pat dry. You can expect bruising and tenderness that gradually resolve within a week or two. Return to work as instructed per your physician Resume driving as instructed per physician Keep all scheduled follow up appointments Resume medications as instructed IMPORTANT: If prescribed a Platelet Aggregation Inhibitor such as, Plavix, Brilinta or Effient: Duration of therapy is minimum one year These medications are often used in combination with Aspirin in prevention of future heart attacks Never discontinue unless consult with your Advertising Manager STROKE (CVA) Risk factors for a stroke are: Age, cigarette smoking, diabetes, excessive alcohol consumption, family history, high blood pressure, overweight, physical inactivity, prior stroke, heart attack, diagnosis of carotid artery stenosis or other artery disease. Warning signs: Sudden numbness or weakness of the face, arm or leg; especially on one side of the body, sudden confusion, trouble speaking or understanding, sudden trouble seeing in one or both eyes, sudden trouble walking, dizziness, loss of balance or coordination, sudden severe headache with no cause. Call 911 or go to the Emergency Room. CONGESTIVE HEART FAILURE: If you have been diagnosed with Congestive Heart Failure (CHF) and your symptoms return, make an appointment with your physician Weigh yourself daily. Notify your physician if you have a weight gain of two or more pounds in one day or five or more pounds in one week. If you experience any difficulty breathing, please call 911 BLEEDING: Although the risk of bleeding is minimal, it can happen. If you have any bleeding from the site, apply firm pressure above the puncture site for 10-15 minutes. If the bleeding does not stop, continue manual pressure and call 911 Contact [facility] ( ) if: You develop a fever greater than 101 degrees Fahrenheit Your site becomes reddened or has any drainage You have an increase in pain or burning at the site or if a large knot forms at the site. If you experience chest pain, shortness of breath, dizziness, or extreme tiredness, stop the activity and rest. Please notify [facility] office if you experience any of these symptoms and they are not relieved by rest please call 911! Referrals: Davi Hodges [Primary Care Provider] -
[2017-07-16] MEDS: Diltiazem CD (24hr) 120 MG CAPSULE PO SCH (13:27)
--- NOTE | 2017-07-16 14:24 | Internal Med Progress Note ---
Date of Encounter: 07/16/17 Time of Encounter: 14:21 - Assessment and plan (1) New onset a-fib Current Visit: Yes Status: Resolved Assessment and plan: Resolved HR controlled Possibly ischemia induced, presented in A-Fib, but since converted to SR. S/P LHC yesterday with PCI and PTCA. Continue BB and CCB. [id number] is 4 (Age, female, HTN) NO indication for digital product specialist anticoagulation per cardio, patient will follow up with cardio as out-patient Code(s): I48.91 - Unspecified atrial fibrillation (2) Elevated troponin Current Visit: Yes Status: Acute Assessment and plan: as in NSTEMI Code(s): R74.8 - Abnormal levels of other serum enzymes (3) Chest pain Current Visit: Yes Status: Acute Assessment and plan: as in NSTEMI Qualifiers: Chest pain type: precordial pain Qualified Code(s): R07.2 - Precordial pain (4) COPD without exacerbation Current Visit: Yes Status: Chronic Assessment and plan: Patient with bronchiectasis on Bactrim DS every other day for maintenance continue same no wheezing on exam, not in exacerbation, continue duonebs prn, home meds (5) Essential hypertension Current Visit: Yes Status: Chronic Assessment and plan: Continue BB, CCB Code(s): I10 - Essential (primary) hypertension (6) Hypothyroidism Current Visit: Yes Status: Chronic Assessment and plan: TSH wnl Continue home dose of Synthroid. Qualifiers: Hypothyroidism type: acquired Qualified Code(s): E03.9 - Hypothyroidism, unspecified (7) DVT prophylaxis Current Visit: Yes Status: Acute Assessment and plan: On Heparin drip Continue SCDs (8) Hypokalemia Current Visit: Yes Status: Resolved Assessment and plan: replaced, corrected (9) Obesity Current Visit: Yes Status: Chronic Assessment and plan: lifestyle modification Qualifiers: Obesity classification: adult class 1 (BMI 30 - 34.9) Serious obesity comorbidity presence: without serious comorbidity Body mass index: BMI 33.0- 33.9 Qualified Code(s): E66.9 - Obesity, unspecified; Z68.33 - Body mass index (BMI) 33.0-33.9, adult; Z68.33 - Body mass index (BMI) 33.0-33.9, adult (10) CAD (coronary artery disease) Current Visit: Yes Status: Chronic Assessment and plan: as in NSTEMI Qualifiers: Coronary Disease-Associated Artery/Lesion type: [place] artery [place] vs. transplanted heart: [place] heart Associated angina: angina presence unspecified Qualified Code(s): I25.10 - Atherosclerotic heart disease of [place] coronary artery without angina pectoris (11) NSTEMI (non-ST elevated myocardial infarction) Current Visit: Yes Status: Acute Assessment and plan: Troponin 0.04, 0.24, 0.50. S/p [facility] 4/6 severe 2 vessel CAD s/p successful intervention. EF 70%. Successful PTCA/RANDI to mLCx and distal LCx. Successful PTCA OM2. Access site without any bleeding cont ASA/Plavix, BB TTE EF preserved, mildly sclerotic AV. (12) Anemia Current Visit: Yes Status: Acute Assessment and plan: Likely dilutional vs blood loss from cath HB this a.m 10.0 Documentation of "pink urine per chart" Rpt CBC a.m Qualifiers: Anemia type: unspecified type Qualified Code(s): D64.9 - Anemia, unspecified - Time Spent With Patient Total time spent is greater than 50% in coordination of care (as documented) at patient's floor/unit and/or counseling patient: - Subjective Interval history: Seen and examined at [facility] Admitted for new onset Afib with chest pain and elevated troponin s/p [facility] with severe disease and stent placement NO new complains - Constitutional Vitals: Temp Pulse Resp BP Pulse Ox 97.6 F 74 16 106/51 96 07/16/17 07:24 07/16/17 07:24 07/16/17 07:24 07/16/17 07:24 07/16/17 07:24 General appearance: Present: A&O X 3, no acute distress, obese - Head Head exam: Present: atraumatic, normocephalic - Eye Eye exam: Present: PERRL, conjuntiva pink, sclera anicteric Pupils: Present: PERRL - Neck Neck exam general surgery: Present: supple, trachea midline. Absent: lymphadenopathy - Respiratory Respiratory exam: Present: CTAB. Absent: accessory muscle use, rales, rhonchi, wheezes - Cardiovascular Cardiovascular exam: Present: RRR, +S1, +S2. Absent: diastolic murmur, gallop, rubs, systolic murmur - GI/Abdominal GI/Abdominal exam: Present: normal bowel sounds, soft, no peritoneal signs. Absent: distended, tenderness - Extremities Exam Extremities exam: Present: warm, radial pulses palpable and symmetrical. Absent : calf tenderness, cyanotic, pedal edema - Neurological Exam Neurological exam: Present: alert, CN II-XII intact, oriented X3, no focal deficits. Absent: pronater drift, facial droop, speech deficit - Skin Skin exam: Present: dry, intact Internal Medicine: Result - Labs CBC & Chem 7: 07/16/17 05:40 07/16/17 05:40 Labs: Short CBC 07/15/17 07/16/17 Range/Units 20:53 05:40 Hgb 12.2 10.7 L D (11.5-15.4) g/dL Hct 38.1 33.7 L (35.3-44.9) % Plt Count 245 (140-400) K/mcL BMP 07/16/17 05:40 BUN 7 L Creatinine 0.71 - ABG Interpretation ABG results: PT/INR, D-dimer PT 11.1 Seconds (9.4-12.1) 07/14/17 07:43 - VTE Documentation of Mechanical Device: Venous foot pump, device Deep Vein Thrombosis/Pulmonary Embolism Present on Admission: Yes Consult Discharge Plan - Plan Additional Instructions: RISK FACTORS: STOP SMOKING: If you smoke, STOP. Smoking or tobacco use significantly increases your risk of heart disease because nicotine causes the arteries to narrow or constrict. It also causes fats to stick to the artery. Your chances of having a heart attack are greatly increased if you continue to smoke. For more information, call the education line for smoking cessation 0-063-YAHBVFE EAT A LOW FAT/CHOLESTEROL/SODIUM DIET: This diet may help reduce your chances of having a heart attack. LIFTING: With affected extremity: Avoid bending, pushing off and lifting more than 2 pounds for 24 hours The following 48 hours, avoid lifting anything more than 5 pounds Avoid strenuous activity or repetitive motions ACTIVITY: You may walk or climb stairs as tolerated You can resume sexual activity as tolerated In general, you are encouraged to engage in a minimum of 30 minutes or more of moderate intensity physical activity, such as brisk walking, daily or at least 3 -4 times weekly BATHING Do not submerge the site into water (bath tub, hot tub, swimming pool, dishes) for 1 week. This can be a source for infection into the blood stream. You may shower after 24 hours SITE CARE: After 24 hours, you may remove the dressing and leave the site open to air. Keep the site clean and dry. Clean gently and pat dry. You can expect bruising and tenderness that gradually resolve within a week or two. Return to work as instructed per your physician Resume driving as instructed per physician Keep all scheduled follow up appointments Resume medications as instructed IMPORTANT: If prescribed a Platelet Aggregation Inhibitor such as, Plavix, Brilinta or Effient: Duration of therapy is minimum one year These medications are often used in combination with Aspirin in prevention of future heart attacks Never discontinue unless consult with your Spanish Medical Interpreter STROKE (CVA) Risk factors for a stroke are: Age, cigarette smoking, diabetes, excessive alcohol consumption, family history, high blood pressure, overweight, physical inactivity, prior stroke, heart attack, diagnosis of carotid artery stenosis or other artery disease. Warning signs: Sudden numbness or weakness of the face, arm or leg; especially on one side of the body, sudden confusion, trouble speaking or understanding, sudden trouble seeing in one or both eyes, sudden trouble walking, dizziness, loss of balance or coordination, sudden severe headache with no cause. Call 911 or go to the Emergency Room. CONGESTIVE HEART FAILURE: If you have been diagnosed with Congestive Heart Failure (CHF) and your symptoms return, make an appointment with your physician Weigh yourself daily. Notify your physician if you have a weight gain of two or more pounds in one day or five or more pounds in one week. If you experience any difficulty breathing, please call 911 BLEEDING: Although the risk of bleeding is minimal, it can happen. If you have any bleeding from the site, apply firm pressure above the puncture site for 10-15 minutes. If the bleeding does not stop, continue manual pressure and call 911 Contact [facility] ( ) if: You develop a fever greater than 101 degrees Fahrenheit Your site becomes reddened or has any drainage You have an increase in pain or burning at the site or if a large knot forms at the site. If you experience chest pain, shortness of breath, dizziness, or extreme tiredness, stop the activity and rest. Please notify [facility] office if you experience any of these symptoms and they are not relieved by rest please call 911! Referrals: Davi Hodges [Primary Care Provider] -
[2017-07-16] MEDS: traZODone 50 MG TABLET PO SCH (21:30)
[2017-07-17 06:32] LABS: Basophils % 0.6 %; Eosinophils # 0.3 K/mcL (0.0-0.6); Eosinophils % 4.2 %; Hematocrit 35.8 % (35.3-44.9); Hemoglobin 11.3 g/dL (11.5-15.4); Immature Granulocytes % 0.6 % (0-4); Lymphocytes # 1.6 K/mcL (0.6-4.6); Lymphocytes % 22.2 %; Mean Corpuscular HGB Conc 31.6 g/dL (31.6-35.5); Mean Corpuscular Hemoglobin 26.5 pg (28.0-33.3); Mean Corpuscular Volume 83.8 fL (83.0-100.0); Mean Platelet Volume 9.8 fL (9.4-12.4); Monocytes # 0.6 K/mcL (0.0-1.3); Monocytes % 8.3 %; Neutrophils # 4.5 K/mcL (1.6-8.9); Platelet Count 261 K/mcL (140-400); Red Blood Count 4.27 M/mcL (3.82-4.97); Red Cell Distribution Width 14.5 % (11.5-14.5); Segmented Neutrophils % 64.1 %
[2017-07-17 06:47] LABS: BUN/Creatinine Ratio 9 (6-26); Blood Urea Nitrogen 7 mg/dL (8-23); Calcium 9.3 mg/dL (8.6-10.3); Carbon Dioxide 24 mEq/L (23-29); Chloride 109 mEq/L (98-107); Glucose 103 mg/dL (70-105); Osmolality,Calculated 286 (280-300); Potassium 3.9 mEq/L (3.5-5.1); Sodium 139 mEq/L (136-145); eGFR For African Americans > 60 (> 60); eGFR For Non-African Americans > 60 (> 60)
[2017-07-17 08:08] VITALS: BP 143/81
[2017-07-17] MEDS: Diltiazem CD (24hr) 120 MG CAPSULE PO SCH (09:39)
[2017-07-17] MEDS: Aspirin 81 MG TAB.CHEW PO SCH (09:39)
[2017-07-17] MEDS: Isosorbide MONOnitrate (24 HR) 30 MG TAB.ER.24H PO SCH (09:39)
[2017-07-17] MEDS: Furosemide 20 MG TABLET PO SCH (09:39)
[2017-07-17] MEDS: Gabapentin 300 MG CAPSULE PO SCH (09:39)
--- NOTE | 2017-07-17 11:29 | Discharge Summary ---
- NOTES TO OUTPATIENT PROVIDER Notes to Outpatient Provider: Patient was admitted for new onset Afib, NSTEMI. She is s/p [facility] with severe 2 vessel disease and PCI placement, now on DaPT, and Diltiazem. Norvasc has been discontinued. She will follow up with cardiology to determine need for group home anticoagulation, since Afib was possibly due to the MT Orders not resulted at time of discharge: Pending orders 07/15/17 18:59 ECG 12 lead ECG [ECG] Stat 07/16/17 06:00 ECG 12 lead ECG [ECG] AM 0600 Date of Encounter: 07/17/17 Time of Encounter: 09:40 - Discharge Diagnosis (1) New onset a-fib Priority: Primary Status: Resolved Comments: Resolved Possibly ischemia induced, presented in A-Fib, but since converted to SR. S/P [facility] 07/15 with PCI Continue ASA, Plavix, Metoprolol, Diltiazem at home HR has been controlled even when patient is ambulatory Patient is in sinus rhythm [id number] is 4 (Age, female, HTN) NO indication for terminal supervisor anticoagulation per cardio, patient will follow up with cardio as out-patient Code(s): I48.91 - Unspecified atrial fibrillation (2) Elevated troponin Priority: Primary Status: Acute Comments: As in NSTEMI Code(s): R74.8 - Abnormal levels of other serum enzymes (3) NSTEMI (non-ST elevated myocardial infarction) Priority: Primary Status: Acute Comments: Troponin 0.04, 0.24, 0.50. S/p [facility] 07/15 severe 2 vessel CAD s/p successful intervention. EF 70%. Successful PTCA/RANDI to mLCx and distal LCx. Successful PTCA OM2. Access site without any bleeding cont ASA/Plavix, BB TTE EF preserved, mildly sclerotic AV Safe to discharge home on ASA/Plavix/BB/CCB No statin due to intolerance. (4) COPD without exacerbation Priority: Secondary Status: Chronic (5) Essential hypertension Priority: Secondary Status: Chronic Comments: controlled Norvasc has been discontinued as patient wa started on diltiazem for Afib Code(s): I10 - Essential (primary) hypertension (6) Hypothyroidism Priority: Secondary Status: Chronic Qualifiers: Hypothyroidism type: acquired Qualified Code(s): E03.9 - Hypothyroidism, unspecified (7) DVT prophylaxis Priority: Primary Status: Acute (8) Hypokalemia Priority: Primary Status: Resolved (9) Obesity Priority: Secondary Status: Chronic Qualifiers: Obesity classification: adult class 1 (BMI 30 - 34.9) Serious obesity comorbidity presence: without serious comorbidity Body mass index: BMI 33.0- 33.9 Qualified Code(s): E66.9 - Obesity, unspecified; Z68.33 - Body mass index (BMI) 33.0-33.9, adult; Z68.33 - Body mass index (BMI) 33.0-33.9, adult (10) CAD (coronary artery disease) Priority: Secondary Status: Chronic Qualifiers: Coronary Disease-Associated Artery/Lesion type: seminole artery [place] vs. transplanted heart: seminole heart Associated angina: angina presence unspecified Qualified Code(s): I25.10 - Atherosclerotic heart disease of seminole coronary artery without angina pectoris (11) Anemia Priority: Secondary Status: Chronic Qualifiers: Anemia type: unspecified type Qualified Code(s): D64.9 - Anemia, unspecified Hospital course: Ms. Hawley is a 76 year old female with PMH of COPD/Bronchiectasis on Bactrim DS QOD, HTN, HLD, Intolerant of statins, She was admitted for new onset Afib and NSTEMI after presenting with retrosternal chest pain radiating down both arms and to bilateral mandible as well as her back. Her initial troponin is mildly elevated (0.04) and her ECG showed A-Fib with RVR (rate in 140s) She was admitted and worked up for ACS, started on heparin and Diltiazem drips for rate control and anticagulaton Troponin continued to remain elevated, she underwent LHC with findings of severe 2 vessel CAD s/p successful intervention. EF 70%. Successful PTCA/RANDI to mLCx and distal LCx. Successful PTCA OM2. She has been ambulatory, tolerating po and chest pain free since then She is in sinus rhythm She is seen and evaluated this morning, no new complains, ambulatory, medically stable to be discharged home. See details in each diagnosis. Follow-up with cardiology and PCP. Discharge discussed with: patient, nurse - Time Spent with Patient Total time spent providing and/or coordinating discharge services: Greater than 30 minutes - Discharge Medications Prescriptions: Aspirin 81 mg PO DAILY #30 tab.chew Clopidogrel [Plavix] 75 mg PO DAILY #30 tablet Diltiazem CD (24hr) [Cardizem CD] 120 mg PO DAILY #30 cap.er.24h Home Medications: Albuterol Sulfate [Proair Hfa] 2 puff IH Q4H PRN 07/14/17 [History] Furosemide [Lasix] 20 mg PO BID 07/14/17 [History] Gabapentin [Neurontin] 300 mg PO TID 07/14/17 [History] Levothyroxine Sodium [Levoxyl] 50 mcg PO DAILY 07/14/17 [History] Metoprolol Tartrate [Lopressor] 50 mg PO DAILY 07/14/17 [History] [place]-3 Fatty Acids [Fish Oil Concentrate] 3,000 mg PO DAILY 07/14/17 [History] Omeprazole [PriLOSEC] 20 mg PO BIDAC 07/14/17 [History] Potassium Chloride [K-Tab ER] 20 meq PO BID 07/14/17 [History] Sulfamethoxazole/Trimeth DS [Bactrim Ds] 1 tab PO Q48H 07/14/17 [History] traZODone [TraZODone] 150 mg PO HS 07/14/17 [History] Aspirin 81 mg PO DAILY #30 tab.chew 07/17/17 [Rx] Clopidogrel [Plavix] 75 mg PO DAILY #30 tablet 07/17/17 [Rx] Diltiazem CD (24hr) [Cardizem CD] 120 mg PO DAILY #30 cap.er.24h 07/17/17 [Rx] Allergies/Adverse Reactions: 3 Allergy/AdvReac Type Severity Reaction Status Date / Time lisinopril Allergy Difficulty Verified 07/14/17 09:29 Breathing meloxicam Allergy Cough Verified 07/14/17 09:29 [id number] Reductase Allergy Difficulty Verified 07/14/17 09:29 Inhibitor Swallowing [Statins] Date of admission: 07/14/17 15:26 Primary care physician: Davi Hodges Consults: 07/15/17 18:59 Consult to Cardiac Rehabilitation-Phase1 [CONS] Routine Comment: Reason for Consult: post op PCI Call Completed: Yes Discharging clinician: Abhishek Parkinson Anticipated date of discharge: 07/17/17 - Constitutional Vitals: Temp Pulse Resp BP Pulse Ox 97.7 F 81 17 143/81 94 07/17/17 08:02 07/17/17 08:02 07/17/17 08:02 07/17/17 08:02 07/17/17 08:02 General appearance: Present: A&O X 3, no acute distress, obese - Head Head exam: Present: atraumatic, normocephalic - Eye Eye exam: Present: PERRL, conjuntiva pink, sclera anicteric Pupils: Present: PERRL - Neck Neck exam general surgery: Present: supple, trachea midline. Absent: lymphadenopathy - Respiratory Respiratory exam: Present: CTAB. Absent: accessory muscle use, rales, rhonchi, wheezes - Cardiovascular Cardiovascular exam: Present: RRR, +S1, +S2. Absent: diastolic murmur, gallop, rubs, systolic murmur - GI/Abdominal GI/Abdominal exam: Present: normal bowel sounds, soft, no peritoneal signs. Absent: distended, tenderness - Extremities Exam Extremities exam: Present: warm, radial pulses palpable and symmetrical. Absent : calf tenderness, cyanotic, pedal edema - Neurological Exam Neurological exam: Present: alert, CN II-XII intact, oriented X3, no focal deficits. Absent: pronater drift, facial droop, speech deficit - Skin Skin exam: Present: dry, intact - Patient Status Disposition: Home, Self-Care Condition: Good Functional capacity at discharge: independent ambulation Overall status at discharge: patient is back to baseline - Discharge Instructions Follow Up With: Davi Hodges [Primary Care Provider] - Additional Instructions: RISK FACTORS: STOP SMOKING: If you smoke, STOP. Smoking or tobacco use significantly increases your risk of heart disease because nicotine causes the arteries to narrow or constrict. It also causes fats to stick to the artery. Your chances of having a heart attack are greatly increased if you continue to smoke. For more information, call the education line for smoking cessation 6-414-MVIZTCA EAT A LOW FAT/CHOLESTEROL/SODIUM DIET: This diet may help reduce your chances of having a heart attack. LIFTING: With affected extremity: Avoid bending, pushing off and lifting more than 2 pounds for 24 hours The following 48 hours, avoid lifting anything more than 5 pounds Avoid strenuous activity or repetitive motions ACTIVITY: You may walk or climb stairs as tolerated You can resume sexual activity as tolerated In general, you are encouraged to engage in a minimum of 30 minutes or more of moderate intensity physical activity, such as brisk walking, daily or at least 3 -4 times weekly BATHING Do not submerge the site into water (bath tub, hot tub, swimming pool, dishes) for 1 week. This can be a source for infection into the blood stream. You may shower after 24 hours SITE CARE: After 24 hours, you may remove the dressing and leave the site open to air. Keep the site clean and dry. Clean gently and pat dry. You can expect bruising and tenderness that gradually resolve within a week or two. Return to work as instructed per your physician Resume driving as instructed per physician Keep all scheduled follow up appointments Resume medications as instructed IMPORTANT: If prescribed a Platelet Aggregation Inhibitor such as, Plavix, Brilinta or Effient: Duration of therapy is minimum one year These medications are often used in combination with Aspirin in prevention of future heart attacks Never discontinue unless consult with your Monorail Operator STROKE (CVA) Risk factors for a stroke are: Age, cigarette smoking, diabetes, excessive alcohol consumption, family history, high blood pressure, overweight, physical inactivity, prior stroke, heart attack, diagnosis of carotid artery stenosis or other artery disease. Warning signs: Sudden numbness or weakness of the face, arm or leg; especially on one side of the body, sudden confusion, trouble speaking or understanding, sudden trouble seeing in one or both eyes, sudden trouble walking, dizziness, loss of balance or coordination, sudden severe headache with no cause. Call 911 or go to the Emergency Room. CONGESTIVE HEART FAILURE: If you have been diagnosed with Congestive Heart Failure (CHF) and your symptoms return, make an appointment with your physician Weigh yourself daily. Notify your physician if you have a weight gain of two or more pounds in one day or five or more pounds in one week. If you experience any difficulty breathing, please call 911 BLEEDING: Although the risk of bleeding is minimal, it can happen. If you have any bleeding from the site, apply firm pressure above the puncture site for 10-15 minutes. If the bleeding does not stop, continue manual pressure and call 911 Contact [facility] ( ) if: You develop a fever greater than 101 degrees Fahrenheit Your site becomes reddened or has any drainage You have an increase in pain or burning at the site or if a large knot forms at the site. If you experience chest pain, shortness of breath, dizziness, or extreme tiredness, stop the activity and rest. Please notify [facility] office if you experience any of these symptoms and they are not relieved by rest please call 911! - Diet and Activity Activity: resume usual activities as tolerated Diet: low fat, low cholesterol, low salt diet - VTE Documentation of Mechanical Device: Intermittent pneumatic compression device Deep Vein Thrombosis/Pulmonary Embolism Present on Admission: Yes
--- NOTE | 2017-07-20 00:46 | Electrocardiograph Report ---
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
== END 2017-07-17 12:56 | disposition home or self-care (01) | DRG 247 ==
LOC: 2SOUTHHOLD 07:18 → EMEROO 07:18 → 2SOUTHHOLD 10:45 → 3ANU 14:34 → SUATTDRO 15:26 → 2NENU 07-15 18:15
PROVIDERS: ADMIT Internal Medicine; ATTEND Internal Medicine

== ENCOUNTER 2018-07-16 10:07 | Observation (INO) ==
[2018-07-16] MEDS ORDERED: Nitroglycerin 1 INCH/GM PACKET TP ONE (10:17)
--- NOTE | 2018-07-16 10:23 | Emergency Department Note ---
Disposition Clinical Impression: Chest pain Qualifiers: Chest pain type: unspecified Qualified Code(s): R07.9 - Chest pain, unspecified Disposition: Admitted As Inpatient Condition: Good Referrals: Davi Hodges [Primary Care Provider] - Forms: ED Satisfaction Letter Time of Disposition: 11:45 General Adult HPI - General Chief complaint: ED Chest Pain Stated complaint: Chest Pain Time Seen by Provider: 07/16/18 10:10 Source: patient Limitations: no limitations Nursing Notes Reviewed: Yes Vital Signs Reviewed: Yes - History of Present Illness HPI Narrative: Patient is a 77-year-old female with past medical history significant for COPD, CAD status post stents placed 1 year ago, and atrial fibrillation anticoagulated on Eliquis. Patient reports central chest pain beginning at 9 AM radiating to her bilateral upper extremities. States this is similar in feeling to her prior [place]. At pain onset patient was getting out of bed. She denies worsening pain with exertion. She did try 3 doses of her home nitroglycerin as well as 4 baby aspirin, without improvement in pain. Associated nausea without vomiting. Denies diaphoresis, dizziness, fevers, chills, cough, or shortness of breath. Denies missed doses of medication. Pt Subjective Complaint: chest pain Onset (ago): Just PRICING COORDINATOR Location: chest Radiation: extremity Pain Scale: 6 Quality: crushing Consistency: constant Improves with: nothing Worsens with: nothing Associated symptoms: Reports: denies other symptoms Treatments Prior to Arrival: Aspirin - Related Data Home Medications Medication Instructions Recorded Confirmed Albuterol Sulfate [Proair Hfa] 2 puff IH Q4H PRN 07/14/17 07/14/17 Furosemide [Lasix] 20 mg PO BID 07/14/17 07/14/17 Gabapentin [Neurontin] 300 mg PO TID 07/14/17 07/14/17 Levothyroxine Sodium [Levoxyl] 50 mcg PO DAILY 07/14/17 07/14/17 Metoprolol Tartrate [Lopressor] 50 mg PO DAILY 07/14/17 07/14/17 [place]-3 Fatty Acids [Fish Oil 3,000 mg PO DAILY 07/14/17 07/14/17 Concentrate] Omeprazole [PriLOSEC] 20 mg PO BIDAC 07/14/17 07/14/17 Potassium Chloride [K-Tab ER] 20 meq PO BID 07/14/17 07/14/17 Sulfamethoxazole/Trimeth DS 1 tab PO Q48H 07/14/17 07/14/17 [Bactrim Ds] traZODone [TraZODone] 150 mg PO HS 07/14/17 07/14/17 Previous Rx's Medication Instructions Recorded Aspirin 81 mg PO DAILY #30 tab.chew 07/17/17 Clopidogrel [Plavix] 75 mg PO DAILY #30 tablet 07/17/17 Diltiazem CD (24hr) [Cardizem CD] 120 mg PO DAILY #30 cap.er.24h 07/17/17 Allergies Allergy/AdvReac Type Severity Reaction Status Date / Time lisinopril Allergy Difficulty Verified 07/14/17 09:29 Breathing meloxicam Allergy Cough Verified 07/14/17 09:29 Mbysfeh-Gun-Opg Reductase Allergy Difficulty Verified 07/14/17 09:29 Inhibitor Swallowing [Statins] Constitutional: Denies: fever, chills Eyes: Denies: vision change Cardiovascular: Reports: chest pain Respiratory: Denies: cough, dyspnea, wheezes Gastrointestinal: Reports: nausea. Denies: abdominal pain, vomiting Musculoskeletal: Denies: back pain, neck pain Integumentary: Denies: rash Neurological: Denies: headache, weakness Past Medical History - Past Medical History Source: patient, nursing notes reviewed Medical history: Reports: asthma, atrial fibrillation, CHF, COPD, GERD, hyperlipidemia, hypertension, myocardial infarction, thyroid disease Psychiatric history: Reports: no psych history WOOL BROKER history: Reports: no WOOL BROKER history - Social History Smoking Status: Never smoker Smokeless Tobacco Status: No Alcohol use: Reports: none Drug use: Reports: none Physical Exam - General Limitations: no limitations General appearance: alert, in no apparent distress - Head Head exam: atraumatic, normocephalic - Eye Eye exam: Absent: scleral icterus, conjunctival injection - ENT ENT exam: mucous membranes moist - Neck Neck exam: Present: trachea midline - Chest Chest inspection: Present: symmetric chest wall rise - Respiratory Respiratory exam: Present: normal lung sounds bilaterally. Absent: respiratory distress, wheezes - Cardiovascular Cardiovascular exam: Present: tachycardia, irregular rhythm. Absent: systolic murmur, diastolic murmur - Abdominal Exam Abdominal exam: Present: soft, Non-Tender, scar (well healed midline verticle scar). Absent: distention, guarding, rebound - Extremities Exam Extremities exam: Absent: pedal edema, calf tenderness - Back Exam Back exam: Absent: tenderness, paraspinal tenderness - Neurological Exam Neurological exam: Present: alert, oriented X3, CN II-XII intact - Skin Skin exam: Present: warm, dry Course Course Narrative: Patient with history of CAD and chest pain similar in quality to prior [place]. Heart rate is irregularly irregular and tachycardiac in the 120's. Lungs are clear, no pedal edema. Will evaluate with ekg, chest xray, troponin, cbc, bmp, ddimer, pt/aptt. Will apply 1 inch nitro paste and 10 mg IV diltiazem. - Reevaluation(s) Reevaluation #1: Patient seen and re-evaluated. Reports improvement in pain. Patient given IV diltiazem with conversion to normal sinus with a rate in the 60's. Chest xray without acute findings. Labs pending. Time: 11:08 Reevaluation #2: Patient is seen and reevaluated at the bedside she reports the chest pain has resolved with medication. Troponin is negative, chest x-ray within normal limits without acute findings. Potassium of 3.3. Have spoken with hospitalist who accepts patient for admission and patient is agreeable. Will provide 40 mEq of supplemental potassium and admit patient for observation. Time: 11:36 Vital Signs Temperature 98.2 F 07/16/18 10:16 Pulse Rate 125 07/16/18 10:16 Respiratory Rate 24 07/16/18 10:16 Blood Pressure 131/76 07/16/18 10:16 O2 Sat by Pulse Oximetry 97 07/16/18 10:16 Temperature 98.2 F 07/16/18 10:16 Pulse Rate 67 07/16/18 11:41 Respiratory Rate 18 07/16/18 11:41 Blood Pressure 132/78 07/16/18 11:41 O2 Sat by Pulse Oximetry 97 07/16/18 11:41 Oxygen Delivery Oxygen Delivery Room Air Medical Decision Making - Lab Data Result diagrams: 07/16/18 10:37 07/16/18 10:37 Lab Results 07/16/18 07/16/18 07/16/18 Range/Units 10:37 10:37 10:37 WBC 11.4 H (4.3-11.1) K/mcL RBC 4.69 (3.82-4.97) M/mcL Hgb 12.4 (11.5-15.4) g/dL Hct 39.2 (35.3-44.9) % MCV 83.6 (83.0-100.0) fL MCH 26.4 L (28.0-33.3) pg MCHC 31.6 (31.6-35.5) g/dL RDW 13.2 (11.5-14.5) % Plt Count 399 (140-400) K/mcL MPV 9.5 (9.4-12.4) fL Immature Gran % 1.3 (0-4) % Seg Neutrophils % 74.8 % Lymphocytes % 17.5 % Monocytes % 6.0 % Eosinophils % 0.1 % Basophils % 0.3 % Neutrophils # 8.6 (1.6-8.9) K/mcL Lymphocytes # 2.0 (0.6-4.6) K/mcL Monocytes # 0.7 (0.0-1.3) K/mcL Eosinophils # 0.0 (0.0-0.6) K/mcL Basophils # 0.0 (0.0-0.2) K/mcL PT 11.9 (9.4-12.1) Seconds INR 1.1 APTT 28.8 (26.0-36.0) Seconds D-Dimer (0-500) ng/mLFEU Sodium 143 (136-145) mEq/L Potassium 3.3 L (3.5-5.1) mEq/L Chloride 106 (98-107) mEq/L Carbon Dioxide 27 (23-29) mEq/L BUN 15 (8-23) mg/dL Creatinine 0.70 (0.60-1.20) mg/dL Est GFR ( Amer) > 60 (> 60) Est GFR (Non-Af Amer) > 60 (> 60) BUN/Creatinine Ratio 21 (6-26) Glucose 111 H (70-105) mg/dL Calculated Osmolality 298 (280-300) Calcium 9.3 (8.6-10.3) mg/dL Troponin I < 0.03 (< 0.04) ng/mL 07/16/18 Range/Units 10:37 WBC (4.3-11.1) K/mcL RBC (3.82-4.97) M/mcL Hgb (11.5-15.4) g/dL Hct (35.3-44.9) % MCV (83.0-100.0) fL MCH (28.0-33.3) pg MCHC (31.6-35.5) g/dL RDW (11.5-14.5) % Plt Count (140-400) K/mcL MPV (9.4-12.4) fL Immature Gran % (0-4) % Seg Neutrophils % % Lymphocytes % % Monocytes % % Eosinophils % % Basophils % % Neutrophils # (1.6-8.9) K/mcL Lymphocytes # (0.6-4.6) K/mcL Monocytes # (0.0-1.3) K/mcL Eosinophils # (0.0-0.6) K/mcL Basophils # (0.0-0.2) K/mcL PT (9.4-12.1) Seconds INR APTT (26.0-36.0) Seconds D-Dimer 427 (0-500) ng/mLFEU Sodium (136-145) mEq/L Potassium (3.5-5.1) mEq/L Chloride (98-107) mEq/L Carbon Dioxide (23-29) mEq/L BUN (8-23) mg/dL Creatinine (0.60-1.20) mg/dL Est GFR ( Amer) (> 60) Est GFR (Non-Af Amer) (> 60) BUN/Creatinine Ratio (6-26) Glucose (70-105) mg/dL Calculated Osmolality (280-300) Calcium (8.6-10.3) mg/dL Troponin I (< 0.04) ng/mL - EKG Data EKG #1 EKG results narrative: HR 119, QRSd 82, QT 335, QTc 472. Irregularly irregular rhythm with tachycadia. Normal axis. Minimally diffuse ST depression, no ST elevations. Inverted T waves leads aVR, V1 also present in prior ecg dated 08/16/2017.
[2018-07-16 10:48] LABS: Basophils % 0.3 %; Eosinophils % 0.1 %; Hematocrit 39.2 % (35.3-44.9); Hemoglobin 12.4 g/dL (11.5-15.4); Immature Granulocytes % 1.3 % (0-4); Lymphocytes % 17.5 %; Mean Corpuscular HGB Conc 31.6 g/dL (31.6-35.5); Mean Corpuscular Hemoglobin 26.4 pg (28.0-33.3); Mean Corpuscular Volume 83.6 fL (83.0-100.0); Mean Platelet Volume 9.5 fL (9.4-12.4); Monocytes # 0.7 K/mcL (0.0-1.3); Neutrophils # 8.6 K/mcL (1.6-8.9); Platelet Count 399 K/mcL (140-400); Red Blood Count 4.69 M/mcL (3.82-4.97); Red Cell Distribution Width 13.2 % (11.5-14.5); Segmented Neutrophils % 74.8 %
[2018-07-16 11:02] LABS: INR 1.1; Prothrombin Time 11.9 Seconds (9.4-12.1)
[2018-07-16 11:05] LABS: Activated Partial Thrombo Time 28.8 Seconds (26.0-36.0)
[2018-07-16] MEDS ORDERED: 0.9 % Sodium Chloride 1,000 ML IVC ONE (11:05)
[2018-07-16 11:09] LABS: BUN/Creatinine Ratio 21 (6-26); Blood Urea Nitrogen 15 mg/dL (8-23); Calcium 9.3 mg/dL (8.6-10.3); Carbon Dioxide 27 mEq/L (23-29); Chloride 106 mEq/L (98-107); Glucose 111 mg/dL (70-105); Osmolality,Calculated 298 (280-300); Potassium 3.3 mEq/L (3.5-5.1); Sodium 143 mEq/L (136-145); Troponin I < 0.03 ng/mL (< 0.04); eGFR For Non-African Americans > 60 (> 60)
--- NOTE | 2018-07-16 11:44 | Emergency Department Note ---
Disposition Clinical Impression: Chest pain Qualifiers: Chest pain type: unspecified Qualified Code(s): R07.9 - Chest pain, unspecified Disposition: Admitted As Inpatient Condition: Good Referrals: Davi Hodges [Primary Care Provider] - Forms: ED Satisfaction Letter General Adult HPI - General Chief complaint: ED Chest Pain Stated complaint: Chest Pain Time Seen by Provider: 07/16/18 10:10 Source: patient Limitations: no limitations - History of Present Illness Location: chest Pain Scale: 6 Quality: crushing Improves with: nothing Worsens with: nothing Associated symptoms: Reports: denies other symptoms Treatments Prior to Arrival: Aspirin - Related Data Home Medications Medication Instructions Recorded Confirmed Albuterol Sulfate [Proair Hfa] 2 puff IH Q4H PRN 07/14/17 07/14/17 Furosemide [Lasix] 20 mg PO BID 07/14/17 07/14/17 Gabapentin [Neurontin] 300 mg PO TID 07/14/17 07/14/17 Levothyroxine Sodium [Levoxyl] 50 mcg PO DAILY 07/14/17 07/14/17 Metoprolol Tartrate [Lopressor] 50 mg PO DAILY 07/14/17 07/14/17 [place]-3 Fatty Acids [Fish Oil 3,000 mg PO DAILY 07/14/17 07/14/17 Concentrate] Omeprazole [PriLOSEC] 20 mg PO BIDAC 07/14/17 07/14/17 Potassium Chloride [K-Tab ER] 20 meq PO BID 07/14/17 07/14/17 Sulfamethoxazole/Trimeth DS 1 tab PO Q48H 07/14/17 07/14/17 [Bactrim Ds] traZODone [TraZODone] 150 mg PO HS 07/14/17 07/14/17 Previous Rx's Medication Instructions Recorded Aspirin 81 mg PO DAILY #30 tab.chew 07/17/17 Clopidogrel [Plavix] 75 mg PO DAILY #30 tablet 07/17/17 Diltiazem CD (24hr) [Cardizem CD] 120 mg PO DAILY #30 cap.er.24h 07/17/17 Allergies Allergy/AdvReac Type Severity Reaction Status Date / Time lisinopril Allergy Difficulty Verified 07/14/17 09:29 Breathing meloxicam Allergy Cough Verified 07/14/17 09:29 Wrof[place]-Ees-Enf Reductase Allergy Difficulty Verified 07/14/17 09:29 Inhibitor Swallowing [Statins] Constitutional: Denies: fever, chills Eyes: Denies: vision change Cardiovascular: Reports: chest pain Respiratory: Denies: cough, dyspnea, wheezes Gastrointestinal: Reports: nausea. Denies: abdominal pain, vomiting Musculoskeletal: Denies: back pain, neck pain Integumentary: Denies: rash Neurological: Denies: headache, weakness Past Medical History - Past Medical History Medical history: Reports: asthma, atrial fibrillation, CHF, COPD, GERD, hyperlipidemia, hypertension, myocardial infarction, thyroid disease Psychiatric history: Reports: no psych history [employer] history: Reports: no [employer] history - Social History Smoking Status: Never smoker Smokeless Tobacco Status: No Alcohol use: Reports: none Drug use: Reports: none Physical Exam - General Limitations: no limitations General appearance: alert, in no apparent distress Course Vital Signs Temperature 98.2 F 07/16/18 10:16 Pulse Rate 125 07/16/18 10:16 Respiratory Rate 24 07/16/18 10:16 Blood Pressure 131/76 07/16/18 10:16 O2 Sat by Pulse Oximetry 97 07/16/18 10:16 Temperature 98.2 F 07/16/18 10:16 Pulse Rate 123 07/16/18 10:42 Respiratory Rate 18 07/16/18 10:42 Blood Pressure 112/80 07/16/18 10:42 O2 Sat by Pulse Oximetry 97 07/16/18 10:42 Oxygen Delivery Oxygen Delivery Room Air Medical Decision Making - Lab Data Result diagrams: 07/16/18 10:37 07/16/18 10:37 Lab Results 07/16/18 07/16/18 07/16/18 Range/Units 10:37 10:37 10:37 WBC 11.4 H (4.3-11.1) K/mcL RBC 4.69 (3.82-4.97) M/mcL Hgb 12.4 (11.5-15.4) g/dL Hct 39.2 (35.3-44.9) % MCV 83.6 (83.0-100.0) fL MCH 26.4 L (28.0-33.3) pg MCHC 31.6 (31.6-35.5) g/dL RDW 13.2 (11.5-14.5) % Plt Count 399 (140-400) K/mcL MPV 9.5 (9.4-12.4) fL Immature Gran % 1.3 (0-4) % Seg Neutrophils % 74.8 % Lymphocytes % 17.5 % Monocytes % 6.0 % Eosinophils % 0.1 % Basophils % 0.3 % Neutrophils # 8.6 (1.6-8.9) K/mcL Lymphocytes # 2.0 (0.6-4.6) K/mcL Monocytes # 0.7 (0.0-1.3) K/mcL Eosinophils # 0.0 (0.0-0.6) K/mcL Basophils # 0.0 (0.0-0.2) K/mcL PT 11.9 (9.4-12.1) Seconds INR 1.1 APTT 28.8 (26.0-36.0) Seconds D-Dimer (0-500) ng/mLFEU Sodium 143 (136-145) mEq/L Potassium 3.3 L (3.5-5.1) mEq/L Chloride 106 (98-107) mEq/L Carbon Dioxide 27 (23-29) mEq/L BUN 15 (8-23) mg/dL Creatinine 0.70 (0.60-1.20) mg/dL Est GFR ( Amer) > 60 (> 60) Est GFR (Non-Af Amer) > 60 (> 60) BUN/Creatinine Ratio 21 (6-26) Glucose 111 H (70-105) mg/dL Calculated Osmolality 298 (280-300) Calcium 9.3 (8.6-10.3) mg/dL Troponin I < 0.03 (< 0.04) ng/mL 07/16/18 Range/Units 10:37 WBC (4.3-11.1) K/mcL RBC (3.82-4.97) M/mcL Hgb (11.5-15.4) g/dL Hct (35.3-44.9) % MCV (83.0-100.0) fL MCH (28.0-33.3) pg MCHC (31.6-35.5) g/dL RDW (11.5-14.5) % Plt Count (140-400) K/mcL MPV (9.4-12.4) fL Immature Gran % (0-4) % Seg Neutrophils % % Lymphocytes % % Monocytes % % Eosinophils % % Basophils % % Neutrophils # (1.6-8.9) K/mcL Lymphocytes # (0.6-4.6) K/mcL Monocytes # (0.0-1.3) K/mcL Eosinophils # (0.0-0.6) K/mcL Basophils # (0.0-0.2) K/mcL PT (9.4-12.1) Seconds INR APTT (26.0-36.0) Seconds D-Dimer 427 (0-500) ng/mLFEU Sodium (136-145) mEq/L Potassium (3.5-5.1) mEq/L Chloride (98-107) mEq/L Carbon Dioxide (23-29) mEq/L BUN (8-23) mg/dL Creatinine (0.60-1.20) mg/dL Est GFR ( Amer) (> 60) Est GFR (Non-Af Amer) (> 60) BUN/Creatinine Ratio (6-26) Glucose (70-105) mg/dL Calculated Osmolality (280-300) Calcium (8.6-10.3) mg/dL Troponin I (< 0.04) ng/mL Attestation Statement - Attestation Attestation: I examined this patient and my medical decision-making was reviewed with the Resident Physician. I agree with the documented findings, disposition and treatment plan as described except to the extent set forth below. 77 year old female presents to the Ed with complaints of chest pain that is similar to her chest pain in the past when she had cardiac stents placed. She has ah history of afib which is othewrsei rate and anticogualted. D-diemr negative and troponin negative. no new ischemic changes but clically concenring for worsening ACS. Asim admit ot medicine
--- NOTE | 2018-07-16 12:54 | Internal Med History&Physical ---
Date of Encounter: 07/16/18 Time of Encounter: 12:53 Internal Medicine - H&P: HPI Chief complaint: CP History of present illness: Patient is a 77-year-old female with past medical history significant for COPD, CAD status post stents assessment, and atrial fibrillation anticoagulated on Eliquis who presented with midsternal chest pain that she experienced while getting out of her bed , associated with nausea with no vomiting. she is describing as being similar to the chest pain that she experiences during her prior myocardial infarction and was not alleviated by 3 doses of nitroglycerin as well as baby aspirin that she took at home. The patient denies diaphoresis, dizziness, fevers, chills, cough, or shortness of breath. Denies missed doses of medication. Reviewing the patient's record indicated that she was admitted one year ago for new onset Afib, NSTEMI. She is s/p [facility] with severe 2 vessel disease and PCI placement. Patient was admitted for further evaluation Past Med Surg Social Fam - Past Medical History Medical history: asthma, atrial fibrillation, CHF, COPD, GERD, hyperlipidemia, hypertension, myocardial infarction, thyroid disease Additional medical history: DDD,restless leg, fibrmyalgia Psychiatric history: no psych history - Past Surgical History Additional surgical history: back surgery - Social History Smoking Status: Never smoker Smokeless Tobacco Status: No Alcohol use: none Drug use: none Internal Medicine - H&P: Meds Albuterol Sulfate [Proair Hfa] 2 puff IH Q4H PRN 07/14/17 [History] Furosemide [Lasix] 20 mg PO BID 07/14/17 [History] Gabapentin [Neurontin] 600 mg PO TID 07/14/17 [History] Levothyroxine Sodium [Levoxyl] 50 mcg PO DAILY 07/14/17 [History] Metoprolol Tartrate [Lopressor] 50 mg PO DAILY 07/14/17 [History] Omeprazole [PriLOSEC] 20 mg PO BIDAC 07/14/17 [History] Potassium Chloride [K-Tab ER] 10 meq PO QID 07/14/17 [History] Sulfamethoxazole/Trimeth DS [Bactrim Ds] 1 tab PO Q48H 07/14/17 [History] traZODone [TraZODone] 150 mg PO HS 07/14/17 [History] Clopidogrel [Plavix] 75 mg PO DAILY #30 tablet 07/17/17 [Rx] Diltiazem CD (24hr) [Cardizem CD] 120 mg PO DAILY #30 cap.er.24h 07/17/17 [Rx] Apixaban [Eliquis] 5 mg PO BID 07/16/18 [History] Cefdinir [Omnicef] 300 mg PO DAILY 07/16/18 [History] Oxaprozin [Daypro] 600 mg PO BID 07/16/18 [History] Allergy/AdvReac Type Severity Reaction Status Date / Time lisinopril Allergy Difficulty Verified 07/14/17 09:29 Breathing meloxicam Allergy Cough Verified 07/14/17 09:29 Lvmaiyg-Aep-Hwq Reductase Allergy Difficulty Verified 07/14/17 09:29 Inhibitor Swallowing [Statins] All Systems PM: A 10-system review of systems was performed and is negative for pertinent findings except as documented above in the HPI. - Constitutional Constitutional: no chills, no fever(s), no night sweats - EENT Eyes: no change in vision, no discharge, no pain, no photophobia Ears: no ear discharge, no ear pain, no tinnitus Nose, mouth and throat: no dysphagia, no nasal discharge, no neck pain, no sore throat - Cardiovascular Cardiovascular ROS IM: chest pain, no diaphoresis, no dyspnea, no lightheadedness, no palpitations, no syncope - Respiratory Respiratory: no cough, no dyspnea, no wheezing, no excessive phlegm production - Gastrointestinal Gastrointestinal: nausea, no abdominal pain, no diarrhea, no hematemesis, no hematochezia, no melena, no vomiting - Genitourinary Genitourinary: no change in urinary stream, no dysuria, no flank pain, no hematuria - Musculoskeletal Musculoskeletal ROS IM: no numbness, no tingling - Integumentary Integumentary IM: no rash, no unusual bruising - Neurological Neurological ROS: no confusion, no convulsions, no focal weakness, no numbness, no tingling, no tremor(s) - Hematologic/Lymphatic Hematologic/Lymphatic: no easy bruising - Constitutional Vitals: Temp Pulse Resp BP Pulse Ox 98.2 F 67 18 132/78 97 07/16/18 10:16 07/16/18 11:41 07/16/18 11:41 07/16/18 11:41 07/16/18 11:41 Exam: As below - Head Head exam: Present: atraumatic, normocephalic - Eye Eye exam: Present: PERRL, conjuntiva pink, sclera anicteric Pupils: Present: PERRL - Neck Neck exam general surgery: Present: supple, trachea midline. Absent: lymphadenopathy - Respiratory Respiratory exam: Present: CTAB. Absent: accessory muscle use, rales, rhonchi, wheezes - Cardiovascular Cardiovascular exam: Present: +S1, +S2. Absent: diastolic murmur, gallop, rubs, systolic murmur - GI/Abdominal GI/Abdominal exam: Present: normal bowel sounds, soft, no peritoneal signs. Absent: distended, tenderness - Extremities Exam Extremities exam: Present: warm, radial pulses palpable and symmetrical. Absent: calf tenderness, cyanotic, pedal edema - Neurological Exam Neurological exam: Present: CN II-XII intact, oriented X3, no focal deficits. Absent: pronater drift, facial droop, speech deficit - Skin Skin exam: Present: dry, intact Internal Med - H&P Results - Labs CBC & Chem 7: 07/17/18 03:47 07/17/18 03:47 Labs: Short CBC 07/16/18 Range/Units 10:37 WBC 11.4 H (4.3-11.1) K/mcL Hgb 12.4 (11.5-15.4) g/dL Hct 39.2 (35.3-44.9) % Plt Count 399 (140-400) K/mcL Neutrophils # 8.6 (1.6-8.9) K/mcL BMP 07/16/18 10:37 Sodium 143 Potassium 3.3 L Chloride 106 Carbon Dioxide 27 BUN 15 Creatinine 0.70 Glucose 111 H Calcium 9.3 Cardiac Enzymes 07/16/18 Range/Units 10:37 Troponin I < 0.03 (< 0.04) ng/mL - Impressions ITS Impressions Chest X-Ray 07/16/18 10:18 IMPRESSION: No evidence for acute cardiopulmonary process. D/ / Oh Barlow MD / Oh Barlow MD Interpreting Provider: Oh Barlow MD - Assessment and Plan (1) Chest pain Current Visit: Yes Status: Acute Assessment and plan: - Chest pain in the setting of history [place] PLAN: - cardiac enzymes x 2 q 8 hr - EKG now and in AM - ASA - O2 by NC to keep SpO2 greater than 92% - UA - CBCD, BMP in AM - Fasting lipids - Tylenol 650 mg PO q 4-6 hr PRN headache - Home meds (check list) - 2D Echo - Cardiology consult Qualifiers: Chest pain type: unspecified Qualified Code(s): R07.9 - Chest pain, unspecified (2) COPD without exacerbation Current Visit: No Status: Chronic Assessment and plan: We will continue home medication and stat [place] PRN (3) Anemia Current Visit: No Status: Chronic Qualifiers: Anemia type: unspecified type Qualified Code(s): D64.9 - Anemia, unspecified (4) CAD (coronary artery disease) Current Visit: No Status: Chronic Assessment and plan: We will continue home medication Qualifiers: Coronary Disease-Associated Artery/Lesion type: [place] artery [place] vs. transplanted heart: [place] heart Associated angina: angina presence unspecified Qualified Code(s): I25.10 - Atherosclerotic heart disease of [place] coronary artery without angina pectoris (5) Essential hypertension Current Visit: No Status: Chronic Assessment and plan: We will continue home medication (6) Hypothyroidism Current Visit: No Status: Chronic Assessment and plan: We will continue home thyroxin Qualifiers: Hypothyroidism type: acquired Qualified Code(s): E03.9 - Hypothyroidism, unspecified (7) Obesity Current Visit: No Status: Chronic Qualifiers: Obesity classification: adult class 1 (BMI 30 - 34.9) Serious obesity comorbidity presence: without serious comorbidity Body mass index: BMI 33.0- 33.9 Qualified Code(s): E66.9 - Obesity, unspecified; Z68.33 - Body mass index (BMI) 33.0-33.9, adult (8) DVT prophylaxis Current Visit: No Status: Acute Assessment and plan: On Chronic anticoagulation. - Time Spent With Patient Total time spent is greater than 50% in coordination of care (as documented) at patient's floor/unit and/or counseling patient:
[2018-07-16] MEDS ORDERED: Ondansetron 4 MG/2 ML VIAL IVP PRN (12:58)
[2018-07-16] MEDS ORDERED: Acetaminophen 325 MG TABLET PO PRN (12:58)
[2018-07-16] MEDS ORDERED: Naloxone 0.4 MG/ML INJ IVP PRN ×2 (12:58)
[2018-07-16] MEDS: *HR* HYDROcodone/Acet 5/325 mg TABLET PO PRN (15:12)
[2018-07-16] MEDS: Sulfamethoxazole/Trimeth DS 1 EACH TABLET PO SCH (18:12)
[2018-07-16] MEDS: Furosemide 20 MG TABLET PO SCH (18:12)
[2018-07-16] MEDS: Apixaban 5 MG TABLET PO SCH (20:21)
[2018-07-16] MEDS: Gabapentin 300 MG CAPSULE PO SCH (20:21)
[2018-07-16] MEDS: traZODone 50 MG TABLET PO SCH (20:21)
[2018-07-16] MEDS: Diclofenac Sodium (24 HR) 100 MG TABLET PO SCH (21:03)
[2018-07-17] MEDS ORDERED: *HR* Metoprolol 5 MG/5 ML VIAL IVP ONE (04:07)
[2018-07-17] MEDS: *HR* HYDROcodone/Acet 5/325 mg TABLET PO PRN (04:07)
[2018-07-17 04:10] LABS: Basophils # 0.1 K/mcL (0.0-0.2); Basophils % 0.6 %; Eosinophils # 0.2 K/mcL (0.0-0.6); Eosinophils % 1.4 %; Hematocrit 38.6 % (35.3-44.9); Hemoglobin 11.8 g/dL (11.5-15.4); Immature Granulocytes % 1.9 % (0-4); Lymphocytes % 26.1 %; Mean Corpuscular HGB Conc 30.6 g/dL (31.6-35.5); Mean Corpuscular Hemoglobin 26.3 pg (28.0-33.3); Mean Platelet Volume 9.5 fL (9.4-12.4); Monocytes % 8.6 %; Neutrophils # 7.1 K/mcL (1.6-8.9); Platelet Count 358 K/mcL (140-400); Red Blood Count 4.49 M/mcL (3.82-4.97); Red Cell Distribution Width 13.3 % (11.5-14.5); Segmented Neutrophils % 61.4 %
[2018-07-17 04:17] LABS: INR 1.1
[2018-07-17 04:20] LABS: Activated Partial Thrombo Time 28.1 Seconds (26.0-36.0)
[2018-07-17 04:25] LABS: Alanine Aminotransferase 10 Units/L (7-52); Albumin 3.6 g/dL (3.5-5.7); Alkaline Phosphatase 58 Units/L (34-104); Aspartate Amino Transferase 9 Units/L (13-39); BUN/Creatinine Ratio 23 (6-26); Bilirubin,Total 0.2 mg/dL (0.3-1.0); Blood Urea Nitrogen 22 mg/dL (8-23); Calcium 8.8 mg/dL (8.6-10.3); Carbon Dioxide 25 mEq/L (23-29); Chloride 108 mEq/L (98-107); Chol/HDL Ratio 3.7 (0-4.9); Cholesterol 169 mg/dL (< 200); Globulin 1.8 g/dL (2.4-3.5); Glucose 93 mg/dL (70-105); HDL Cholesterol 46 mg/dL (40-59); LDL Cholesterol,Calculated 81 mg/dL (0-99); Magnesium 1.6 mg/dL (1.6-2.6); Osmolality,Calculated 297 (280-300); Phosphorous 3.7 mg/dL (2.7-4.5); Sodium 142 mEq/L (136-145); Total Protein 5.4 g/dL (6.4-8.9); Triglycerides 211 mg/dL (< 150); eGFR For Non-African Americans 56 (> 60)
[2018-07-17] MEDS: Diltiazem CD (24hr) 120 MG CAPSULE PO SCH (08:24)
[2018-07-17] MEDS: Gabapentin 300 MG CAPSULE PO SCH ×3 (08:25→21:03)
[2018-07-17] MEDS: Furosemide 20 MG TABLET PO SCH ×2 (08:25→17:33)
[2018-07-17] MEDS: Apixaban 5 MG TABLET PO SCH (08:25)
[2018-07-17] MEDS: Diclofenac Sodium (24 HR) 100 MG TABLET PO SCH (08:26)
--- NOTE | 2018-07-17 09:24 | Cardiology Consult Note ---
Date of Encounter: 07/17/18 Time of Encounter: 09:22 Assessment and Plan (1) Paroxysmal atrial fibrillation Current Visit: Yes Status: Acute Mild RVR on EKG anticoagulant and on eliquis, titrate beta [place] as tolerated, echo pending (2) NSTEMI (non-ST elevated myocardial infarction) Current Visit: No Status: Acute Known coronary artery disease as described above, adynamic troponins. EKG unremarkable. Echo pending we will evaluate for new regional wall motion abnormalities. We will also review LHC from 2018 PCI prior to any further recommendations. Discussion w patient/family: The assessment and plan as outlined above was discussed with the patient and/or family members who expressed understanding and agreement. All questions were answered. Thank you for involving us in the care of your patient. Please call with any questions. History of Present Illness Consult date: 07/17/18 Consult reason: Chest Pain Chief complaint: Chest Pain History of present illness: Ms. Hawley is a 77 year old female with known PCI of CIRC and PTCA of OM's 07/2017 her for chest pain similiar to her previous presentation. Mild adynamic troponin elevations. EKG with afib RVR. Currently resting comfortably denies any chest pain, shortness breath, descensus, orthopnea, PND, presyncope or syncope. Echocardiogram currently pending Past Med Surg Social Fam HX - Past Medical History Medical history: asthma, atrial fibrillation, CHF, COPD, GERD, hyperlipidemia, hypertension, myocardial infarction, thyroid disease Additional medical history: DDD,restless leg, fibrmyalgia Psychiatric history: no psych history - Past Surgical History Additional surgical history: back surgery - Social History Smoking Status: Never smoker Smokeless Tobacco Status: No Alcohol use: none Drug use: none Medications and Allergies RX: Albuterol Sulfate [Proair Hfa] 2 puff IH Q4H PRN 07/14/17 [History] RX: Furosemide [Lasix] 20 mg PO BID PRN 07/14/17 [History] RX: Gabapentin [Neurontin] 600 mg PO TID 07/14/17 [History] RX: Levothyroxine Sodium [Levoxyl] 50 mcg PO DAILY 07/14/17 [History] RX: Metoprolol Tartrate [Lopressor] 50 mg PO DAILY 07/14/17 [History] RX: Omeprazole [PriLOSEC] 20 mg PO BIDAC 07/14/17 [History] RX: Potassium Chloride [K-Tab ER] 10 meq PO BID 07/14/17 [History] RX: Sulfamethoxazole/Trimeth DS [Bactrim Ds] 1 tab PO Q48H 07/14/17 [History] RX: traZODone [TraZODone] 150 mg PO HS 07/14/17 [History] RX: Clopidogrel [Plavix] 75 mg PO DAILY #30 tablet 07/17/17 [Rx] RX: Diltiazem CD (24hr) [Cardizem CD] 120 mg PO DAILY #30 cap.er.24h 07/17/17 [Rx] Apixaban [Eliquis] 5 mg PO BID 07/16/18 [History] Cefdinir [Omnicef] 300 mg PO DAILY 07/16/18 [History] Oxaprozin [Daypro] 600 mg PO BID 07/16/18 [History] RX: Tizanidine HCl 4 mg PO Q8H PRN 07/17/18 [History] Allergy/AdvReac Type Severity Reaction Status Date / Time lisinopril Allergy Difficulty Verified 07/14/17 09:29 Breathing meloxicam Allergy Cough Verified 07/14/17 09:29 Ysmjqso-Jwz-Eby Reductase Allergy Difficulty Verified 07/14/17 09:29 Inhibitor Swallowing [Statins] All Systems Review: The remainder of the systems were reviewed and are negative Physical Examination Vital Signs, Last 4 Hours Temp Pulse Resp BP Pulse Ox 07/17/18 08:08 97.5 F L 61 17 177/84 96 07/17/18 05:30 154/80 General: Conversant, No Apparent Distress HEENT: Atraumatic, Normocephaly, Mucus Membranes Moist Neck: No JVD, Normal carotid pulses Cardiac: Reg Rate and Rhythm, Normal S1 and S2, No Murmur Lungs: Normal Breath Sounds, No Wheeze, Rales, Rhonchi Neuro: Alert and responsive, No focal deficits noted Abdomen: Soft, Non-Tender Skin: No rashes noted on visualized skin Musculoskeletal: No Chest Wall Tenderness Extremities: No Clubbing, No Cyanosis, No Edema, Normal Pulses Results 07/17/18 03:47 07/17/18 03:47 Lab Results 07/16/18 07/16/18 07/16/18 10:37 10:37 10:37 WBC 11.4 H Hgb 12.4 Hct 39.2 Plt Count 399 INR 1.1 APTT 28.8 D-Dimer Sodium 143 Potassium 3.3 L Chloride 106 Carbon Dioxide 27 BUN 15 Creatinine 0.70 Glucose 111 H Calcium 9.3 Magnesium Total Bilirubin AST ALT Alkaline Phosphatase Troponin I < 0.03 07/16/18 07/16/18 07/16/18 10:37 16:51 23:48 WBC Hgb Hct Plt Count INR APTT D-Dimer 427 Sodium Potassium Chloride Carbon Dioxide BUN Creatinine Glucose Calcium Magnesium Total Bilirubin AST ALT Alkaline Phosphatase Troponin I 0.11 H* 0.12 H* 07/17/18 07/17/18 07/17/18 03:47 03:47 03:47 WBC 11.6 H Hgb 11.8 Hct 38.6 Plt Count 358 INR 1.1 APTT 28.1 D-Dimer Sodium 142 Potassium 4.0 Chloride 108 H Carbon Dioxide 25 BUN 22 Creatinine 0.97 Glucose 93 Calcium 8.8 Magnesium 1.6 Total Bilirubin 0.2 L AST 9 L ALT 10 Alkaline Phosphatase 58 Troponin I 07/17/18 03:47 WBC Hgb Hct Plt Count INR APTT D-Dimer Sodium Potassium Chloride Carbon Dioxide BUN Creatinine Glucose Calcium Magnesium Total Bilirubin AST ALT Alkaline Phosphatase Troponin I 0.13 H* Consult Discharge Plan - Plan Referrals: Davi Hodges [Primary Care Provider] -
--- NOTE | 2018-07-17 10:18 | Electrocardiograph Report ---
[place] [id number] Test Date: 2018-07-16 Pat Name: Dora Hawley Department: EXAM6 Room: 3B44 Gender: F [employer]: : 1940 Requested By: Javier Houston Order Number: [id number] Reading MD: Duong Bedolla Measurements Intervals [place] Rate: 119 P: [place]: QRS: 51 QRSD: 82 T: 9 QT: 335 QTc: 472 Interpretive Statements Atrial fibrillation with rapid ventricular response Nonspecific ST-T changes Electronically Signed On 07-17-2018 10:17:10 EDT by Duong Bedolla
--- NOTE | 2018-07-17 10:45 | Electrocardiograph Report ---
[place] [id number] Test Date: 2018-07-17 Pat Name: Dora Hawley Department: 113 Room: 3B44 Gender: F Claims Assistant: : 1940 Requested By: Silverio Benjamin Order Number: [id number] Reading MD: Duong Bedolla Measurements Intervals [place] Rate: 61 P: 68 NE: 156 QRS: 13 QRSD: 91 T: 18 QT: 387 QTc: 389 Interpretive Statements SINUS RHYTHM Electronically Signed On 07-17-2018 10:43:28 EDT by Duong Bedolla
[2018-07-17] MEDS ORDERED: 0.9 % Sodium Chloride 1,000 ML ONE (13:50)
[2018-07-17] MEDS ORDERED: *HR* Heparin 10,000 UNIT/10 ML VIAL ONE (13:51)
[2018-07-17] MEDS ORDERED: Heparin 1,000 UNITS/500 mL 500 ML ONE (13:51)
[2018-07-17] MEDS ORDERED: ISOVUE-370 200 ML INFUS..BTL ONE (13:51)
[2018-07-17] MEDS ORDERED: Nitroglycerin 1,000 MCG/10 ML VIAL IV ONE (13:51)
[2018-07-17] MEDS ORDERED: Verapamil 5 MG/2 ML VIAL ONE (13:56)
--- NOTE | 2018-07-17 14:07 | Event Note ---
Date of Encounter: 07/17/18 Time of Encounter: 14:06 - Cardiology Event Note Eliquis given this am. Will need to stop eliquis in preparation for cath.
--- NOTE | 2018-07-17 14:33 | Internal Med Progress Note ---
Hospitalist Progress Note - Encounter Date of Encounter: 07/17/18 Time of Encounter: 14:30 - Subjective Interval History: Ms. Hawley is a 77-year-old female with past medical history significant for COPD, Severe 2 vessel CAD s/p PCI x mid Circ, Distal Circ and OM2 on 07/15/2017, and atrial fibrillation anticoagulated on Eliquis pt presented to ER with midsternal chest pain that she experienced while getting out of her bed , associated with nausea with no vomiting. she is describing as being similar to the chest pain that she experiences during her prior myocardial infarction and was not alleviated by 3 doses of nitroglycerin as well as baby aspirin that she took at home. She was admitted in the hospital and placed on threat monitoring analyst. Her troponin so slightly elevated @ 0.12. She denied any more active chest pain - Exam Vitals: Temp Pulse Resp BP Pulse Ox 98.3 F 57 18 176/79 96 07/17/18 11:37 07/17/18 11:37 07/17/18 11:37 07/17/18 11:37 07/17/18 11:37 Exam: Gen: Alert, awake, Oriented to time,place and person Chest: Diminished breath sounds B/L, No wheezing, No crackles, No rales Heart: S1S2+ RRR No murmurs Abd: Soft, NT, BS +, No organomegaly Ext: No edema, pulses are palpable, No calf tenderness Neuro : Benign findings Skin: No rash. - Assessment and Plan (1) Chest pain Current Visit: Yes Status: Acute Assessment and Plan: Troponin elevated at @ 0.12 Reviewed 2 D Echo did not show any wall motion abnormalities. Preserved LVEF. Continue aspirin, Plavix, beta [place] and statin Evaluated by shale miner blasting who recommended LHC Since pt was given Eliquis this morning, held LHC for today Continue on threat monitoring analyst Also held eliquis evening dose appreciate cardiology recommendations (2) NSTEMI (non-ST elevated myocardial infarction) Current Visit: No Status: Acute Assessment and Plan: Troponin elevated at @ 0.12 Cardiology consulted - scheduled for LHC In Am (3) CAD (coronary artery disease) Current Visit: No Status: Chronic Assessment and Plan: s/p LHC with PCI x 3in 07/2017 resumed all home meds scheduled for LHC in Am (4) COPD without exacerbation Current Visit: No Status: Chronic Assessment and Plan: Stable not in exacerbation resumed home inhalers Duonebs as needed (5) Essential hypertension Current Visit: No Status: Chronic Assessment and Plan: Fairly controlled resumed all home medications also placed her on hydralazine IV PRN (6) Hypothyroidism Current Visit: No Status: Chronic Assessment and Plan: continue home thyroxin (7) DVT prophylaxis Current Visit: No Status: Acute Assessment and Plan: On Chronic anticoagulation. (8) Obesity Current Visit: No Status: Chronic (9) Anemia Current Visit: No Status: Chronic - Time Spent with Patient Total time spent is greater than 50% in coordination of care (as documented) at patient's floor/unit and/or counseling patient: Internal Medicine: Result - Labs CBC & Chem 7: 07/17/18 03:47 07/17/18 03:47 Labs: Short CBC 07/17/18 Range/Units 03:47 WBC 11.6 H (4.3-11.1) K/mcL Hgb 11.8 (11.5-15.4) g/dL Hct 38.6 (35.3-44.9) % Plt Count 358 (140-400) K/mcL Neutrophils # 7.1 (1.6-8.9) K/mcL BMP 07/17/18 03:47 Sodium 142 Potassium 4.0 Chloride 108 H Carbon Dioxide 25 BUN 22 Creatinine 0.97 Glucose 93 Calcium 8.8 Cardiac Enzymes 07/16/18 07/16/18 07/17/18 Range/Units 16:51 23:48 03:47 Troponin I 0.11 H* 0.12 H* 0.13 H* (< 0.04) ng/mL 07/17/18 Range/Units 10:08 Troponin I 0.10 H* (< 0.04) ng/mL Liver Function 07/17/18 Range/Units 03:47 Total Bilirubin 0.2 L (0.3-1.0) mg/dL AST 9 L (13-39) Units/L ALT 10 (7-52) Units/L Alkaline Phosphatase 58 (34-104) Units/L Albumin 3.6 (3.5-5.7) g/dL - ABG Interpretation ABG results: PT/INR, D-dimer PT 12.0 Seconds (9.4-12.1) 07/17/18 03:47 D-Dimer 427 ng/mLFEU (0-500) 07/16/18 10:37 - Impressions Impressions Echocardiogram 07/17/18 13:09 Impressions: LVEF 60-65%. Normal LV chamber size, wall thickness and function. Moderate left ventricular diastolic dysfunction. Normal right ventricular structure and function. Mild mitral regurgitation. No evidence of pulmonary hypertension. Left Ventricular Wall Motion: Rest Echo Findings All wall segments showed normal motion. Findings: Study Quality * Technically adequate exam. ECG Findings * Normal sinus rhythm. Left Ventricle * LVEF 60-65%. * Normal LV chamber size, wall thickness and function. * Moderate left ventricular diastolic dysfunction. Right Ventricle * Normal right ventricular structure and function. Left Atrium * Mildly dilated left atrium. Right Atrium * Mildly dilated right atrium. Aortic Valve * Trileaflet aortic valve. * Mildly calcified aortic valve leaflets. * Trace aortic regurgitation. * No aortic stenosis. Mitral Valve * Mild mitral annular calcification * Mildly calcified mitral valve leaflets. * Mild mitral regurgitation. * No mitral stenosis. Tricuspid Valve * Normal tricuspid valve structure and function. * Trace tricuspid regurgitation. * No evidence of pulmonary hypertension. Pulmonic Valve * Normal pulmonic valve structure and function. * Trace pulmonic regurgitation. Aorta * Normally sized aortic root. Pericardium * The pericardium appears normal. IVC * Normal IVC dimensions and inspiratory collapse. Pulmonary Artery * Normal visualized portions of the main pulmonary artery. Consult Discharge Plan - Plan Referrals: Davi Hodges [Primary Care Provider] - 07/27/18 11:30 am (1) Chest pain Qualifiers: Chest pain type: unspecified Qualified Code(s): R07.9 - Chest pain, unsp ecified (3) CAD (coronary artery disease) Qualifiers: Coronary Disease-Associated Artery/Lesion type: [place] artery [place] vs. transplanted heart: [place] heart Associated angina: angina presence unspecified Qualified Code(s): I25.10 - Atherosclerotic heart disease of [place] coronary artery without angina pectoris (6) Hypothyroidism Qualifiers: Hypothyroidism type: acquired Qualified Code(s): E03.9 - Hypothyroidism, unspecified (8) Obesity Qualifiers: Obesity classification: adult class 1 (BMI 30 - 34.9) Serious obesity comorbidity presence: without serious comorbidity Body mass index: BMI 33.0- 33.9 Qualified Code(s): E66.9 - Obesity, unspecified; Z68.33 - Body mass index (BMI) 33.0-33.9, adult (9) Anemia Qualifiers: Anemia type: unspecified type Qualified Code(s): D64.9 - Anemia, unspecified
[2018-07-17] MEDS: traZODone 50 MG TABLET PO SCH (21:03)
[2018-07-18] MEDS: Gabapentin 300 MG CAPSULE PO SCH ×2 (09:05→16:43)
[2018-07-18] MEDS: Diltiazem CD (24hr) 120 MG CAPSULE PO SCH (09:05)
[2018-07-18] MEDS ORDERED: 0.9 % Sodium Chloride 1,000 ML ONE ×2 (09:09)
[2018-07-18] MEDS ORDERED: Heparin 1,000 UNITS/500 mL 500 ML ONE (09:09)
[2018-07-18] MEDS ORDERED: Nitroglycerin 1,000 MCG/10 ML VIAL IV ONE (09:09)
[2018-07-18] MEDS ORDERED: ISOVUE-370 200 ML INFUS..BTL ONE (09:09)
[2018-07-18] MEDS ORDERED: *HR* Heparin 10,000 UNIT/10 ML VIAL ONE (09:09)
[2018-07-18] MEDS: Furosemide 20 MG TABLET PO SCH ×2 (09:11→16:44)
[2018-07-18] MEDS ORDERED: *HR* Midazolam HCl 2 MG/2 ML VIAL ONE (09:37)
[2018-07-18] MEDS ORDERED: *HR* FentaNYL (PF) 100 MCG/2 ML VIAL ONE (09:38)
--- NOTE | 2018-07-18 09:51 | Pre-Sedation Evaluation ---
Pre-sedation evaluation - Pre-sedation checklist Date of procedure: 07/17/18 Procedure: heart cath Recent Vitals: Last Vital Signs Temp 97.4 F L 07/18/18 07:20 Pulse 69 07/18/18 07:20 Resp 18 07/18/18 07:20 BP 160/89 07/18/18 07:20 Pulse Ox 96 07/18/18 07:20 H&P (including ROS) documented in medical record: Yes Previous reaction to sedatives/anesthetics: No Dietary Status: NPO after Midnight Airway Assessment: Patient can open mouth completely, TMJ function normal, Micrognathia (under-bite, receding chin) absent, Neck with adequate range of motion Dentition: dentures removed Possible difficult airway: No ASA Classification *see protocol: CLASS II-Mild systemic disease Plan of Care: Pt appropriate candidate for procedure/moderate/conscious sedation, Risks/benefits of procedure/sedation discussed w/ patient/family Cardiac Registry (Cardio Only) - Functional Capacity Functional Capacity: >=4 METS with symptoms - Clincal Frailty Scale Clinical Frailty Scale: Vulnerable
[2018-07-18] MEDS ORDERED: *HR* Bivalirudin 250 MG VIAL IVC ONE (10:09)
--- NOTE | 2018-07-18 13:03 | Event Note ---
Date of Encounter: 07/18/18 Time of Encounter: 13:00 - Cardiology Event Note Per Dr. Marichuy Tang, no intervention performed, optimize medical management. Systolic blood pressure noted to be in the 150s to 160s, will increase Lopressor to appropriate dosing twice a day-- was on 50 mg by mouth daily, will now start 50 once by mouth twice a day. Will resume previous dose of Eliquis 5mg PO BID. On Plavix. Has past intolerance to statins and ANITA inhibitor. Cardiology signing off, reconsult as needed, follow-up arranged.
--- NOTE | 2018-07-18 13:06 | Invasive Diagnostic Lab Proc ---
Name: Dora Hawley Date of Study: 07/18/2018 Date: 1940 Ht: 62.9in Medical Record#: [id number] Age: 77 Wt: 187.39lb Gender: Female BSA: 1.88 Order #: [id number] BMI: 33.29 Physicians Procedure Physician: Andreea Tang MD, FACC Referring MD: Referring MD: Staff Name Position Time In AmeeAsiya RN Monitor 09:38 AM Troy Ford RN Cleaning And Maintenance Worker 09:38 AM Ash Mohr RT (R) Scrub 09:38 AM Indications Indication Non-Stemi Procedures Performed Procedure L HRT ARTERY/VENTRICLE ANGIO IV Doppler BLD Flow 1st Vessel Pre-Procedure Checklist Informed consent is complete signed and on chart. H&P is on chart. ID band is on and ID verified with patient. Patient NPO for procedure The procedure was described for the patient and questions were answered. Blood Pressure: 176/79 ECG is on chart. Rhythm: NSR Plan of Care Patient will tolerate the procedure without complications. Adequate level of comfort will be maintained. Hemodynamics will remain stable Patient will recover from procedure without complications. Respiratory function will be maintained. Cardiac rhythm will remain stable. Patient temperature will be maintained. Patient and/or family have verbalized understanding of the procedure. Patient Education Chief Complaint/Reason for Test: Cardiac Cath Developmental Category: Geriatric (65+ years) Developmentally Appropriate for Age: Yes Learning Barriers: None Education Needs: Procedure Education Method: Verbal Information Taught: Cardiac Cath Educational Evaluation: Able to repeat information Intravenous Access Time IV Size Location DC'd Fluid/Drip Rate Units RN 02:09 PM 20g 1 04/14" Patent On Arrival Rt Arm Allergies lisinopril meloxicam Xbakhmd-Xef-Ltq Reductase Inhibitor Vital Signs Time BP (mmHg) HR (bpm) O2 Sat. RR (bpm) LOC 02:09 PM 176 / 79 57 96 % 09:39 AM / % 5 = Fully awake and oriented or at pre-proc level 09:39 AM / % 4 = Oriented but drowsy 09:54 AM / % 4 = Oriented but drowsy 10:30 AM 141 / 81 60 97 % 16 4 = Oriented but drowsy 09:52 AM 175 / 91 82 100 % 9 09:56 AM 147 / 81 70 93 % 14 10:01 AM 142 / 72 58 96 % 11 10:06 AM 138 / 67 60 94 % 12 10:11 AM 127 / 71 63 93 % 11 10:17 AM 147 / 89 65 95 % 14 10:22 AM 157 / 88 65 94 % 12 10:45 AM 148 / 77 61 97 % 16 5 = Fully awake and oriented or at pre-proc level 11:00 AM 133 / 74 66 96 % 16 5 = Fully awake and oriented or at pre-proc level 11:15 AM 111 / 91 57 94 % 16 5 = Fully awake and oriented or at pre-proc level 11:30 AM 149 / 79 58 96 % 16 5 = Fully awake and oriented or at pre-proc level 11:52 AM 136 / 74 57 96 % 16 5 = Fully awake and oriented or at pre-proc level 12:14 PM 143 / 84 63 97 % 17 5 = Fully awake and oriented or at pre-proc level 12:23 PM 117 / 66 59 96 % 16 5 = Fully awake and oriented or at pre-proc level Procedural Medications Time Medication Dose Units Method Given By 09:46 AM Oxygen 2 L/min nasal cannula Troy Ford RN 09:53 AM Versed 2 mg Intravenous Troy Ford RN 09:53 AM Fentanyl 50 mcg Intravenous Troy Ford RN 10:02 AM Lidocaine 2% 19 ml Subcutaneous Andreea Tang MD, FACC 10:04 AM Fentanyl 25 mcg Intravenous Troy Ford RN 10:14 AM Angiomax 0.75mg/kg bolus: 13 ml Intravenous Troy Ford RN 10:15 AM Angiomax 1.75mg/kg/hr: 29.8 ml/hr Intravenous Troy Ford RN 10:16 AM Fentanyl 25 mcg Intravenous Troy Ford RN 10:18 AM 90mg Adenosine in 90 ml 0.9 NS 714 ml/hr Intravenous Troy Ford RN ASA Classification: CLASS II- Mild systemic disease (i.e. well-controlled diabetes, hypertension, asthma, cigarette smoking) Federico Score Preprocedure Postprocedure Activity 2- Moves 4 extremities sustained head lift Activity Circulation 2- SBP +/= 20 points of pre-anesthetic level Circulation Consciousness 2- Awake and alert oriented x 3 Consciousness O2 Saturation 2- Able to maintain O2 satruation of 92% on room air O2 Saturation Respiratory 2- Able to deep breathe and cough well Respiratory Total Score 10 Total Score Contrast Agent: Isovue Diagnostic Contrast: 87 ml Total Contrast: 87 ml Fluoro Dose: 40 mGy Procedure Log Time Note Enter By 09:38 AM Pt arrived to clinical laboratory aide 2 at 09:38 [facility] 09:38 AM Asiya Lubin RN Position: Monitor Time in: :38 avis 09:38 AM Troy Ford RN Position: Cleaning And Maintenance Worker Time in: :38 avis 09:38 AM Ash Mohr RT (R) Position: Scrub Time in: :38 [facility] 09:38 AM Patient charges- Angio tray pack, Navilyst 3mm J, Pulse Oximetry and ACIST tubing and transducer kmavis 09:38 AM Case Delayed No avis 09:38 AM Case Start 09:38 AM CathStat 09:39 AM Time: :39 Patient comfortable and pain free: Yes avis :39 AM Time: :39LOC: 5 = Fully awake and oriented or at pre-proc level kmavis 09:45 AM Meet and greet completed [facility] 09:46 AM Physician arrived 09:45 [facility] 09:46 AM Sign in performed according to hospital policy. Informed consent was obtained. kmavis 09:46 AM Procedure start :46 avis 09:46 AM Time: :46 Oxygen on at 2 L/min per nasal cannula by Troy Ford RN [facility] 09:47 AM Hair removed from procedure site in procedure lab using clippers. Bilateral groin prepped with Chloraprep by Troy Ford RN, then patient was draped. Skin intact. [facility] 09:49 AM Vitals capture started with the following parameters, Patient=Adult, Interval=5 min, Initial Xgdffzrm=611 mmHg, Deflation Rate=5 mmHg, Cuff placed on Right Arm 09:50 AM Vitals capture stopped. 09:50 AM Vitals capture started with the following parameters, Patient=Adult, Interval=5 min, Initial Qlqwkjel=347 mmHg, Deflation Rate=5 mmHg, Cuff placed on Right Arm 09:52 AM Recorded ECG: HR=62 Condition=Condition 1 09:52 AM HR=82 bpm, NDBC=273/91 mmhg, UoS6=986.0 %, Resp=9 B/min 09:53 AM ASA Class CLASS II- Mild systemic disease (i.e. well-controlled diabetes, hypertension, asthma, cigarette smoking) kmavis 09:53 AM Time: 09:53 Versed 2 mg Intravenous Given by Troy Ford RN [facility] 09:53 AM Time: 09:53 Fentanyl 50 mcg Intravenous Given by Troy Ford RN [facility] 09:54 AM Time: 09:39LOC: 4 = Oriented but drowsy [facility] 09:54 AM Clinical Presentation: Non-STEMI [facility] 09:54 AM Time: 09:39 Patient comfortable and pain free: Yes avis 09:56 AM HR=70 bpm, XMJA=429/81 mmhg, SpO2=93.0 %, Resp=14 B/min 09:58 AM Pressure channel 1 zero failed. 09:59 AM Pressure channel 1 zeroed. 09:59 AM Time out was performed according to hospital policy. Conscious sedation and anesthesia was achieved (see medication log with in this report above) [facility] 10:01 AM HR=58 bpm, ZUAW=993/72 mmhg, SpO2=96.0 %, Resp=11 B/min 10:02 AM Time: 10:02 19 ml Lidocaine 2% to left groin Subcutaneous Given by Andreea Tang MD, [facility] 10:02 AM Access obtained by percutaneous puncture. 5Fr 10cm Terumo [place] sheath placed in left Femoral artery. [id number] avis 10:02 AM 5Fr FL 4 catheter inserted over the wire [facility] 10:02 AM 0.035 145cm Navilyst 3mmJ wire [id number] avis 10:02 AM LCA angiography performed in multiple views. avis 10:04 AM Recorded Pressure: Ao, HR=65, Condition=Condition 1 (Aorta) Ao 155/85/111 10:04 AM Time: 10:04 Fentanyl 25 mcg Intravenous Given by Troy Ford RN [facility] 10:05 AM Catheter removed [facility] 10:05 AM 5Fr FR 4 catheter inserted over the wire [facility] 10:05 AM RCA angiography performed in multiple views. avis 10:06 AM HR=60 bpm, NOTU=415/67 mmhg, SpO2=94.0 %, Resp=12 B/min 10:06 AM Recorded Pressure: Ao, HR=63, Condition=Condition 1 (Aorta) Ao 123/73/97 10:07 AM Catheter removed [facility] 10:07 AM 5Fr Pigtail catheter inserted over the wire [facility] kmavis 10:07 AM Catheter crossed the aortic valve and was selectively placed in the left ventricle. Pressures recorded on pullback for left heart catheterization. kmavis 10:09 AM Time: 09:54LOC: 4 = Oriented but drowsy kmavis 10:09 AM Pressure channel 1 zeroed. 10:09 AM Time: 09:54 Patient comfortable and pain free: Yes kmavis 10:09 AM Recorded Pressure: LV, HR=61, Condition=Condition 1 (Left Ventricle) LV 132/-3/12 10:10 AM Bolus angiogram of left Ventricle complete: 8 ml/sec for a total of 24 mls kmavis 10:10 AM Recorded Pressure: LV, Ao, HR=97, Condition=Condition 1 (Left Ventricle) LV 85/62/57, (Aorta) Ao 95/68/82 10:11 AM Catheter removed kmavis 10:11 AM HR=63 bpm, KAHL=248/71 mmhg, SpO2=93.0 %, Resp=11 B/min 10:12 AM Sheath exchanged for a 6 Fr 11 cm Cordis Kindra sheath [id number] kmavi 10:12 AM Inflation device was opened. kmavis 10:13 AM [ Start FFR sample: Equalized ] 10:13 AM 6Fr JL3.5 Cordis guide catheter was used to cannulate the PCI vessel successfully. reused? No kmavis 10:14 AM Pressure channel 4 zeroed. 10:15 AM Time: 10:14 Angiomax 0.75mg/kg bolus: 13 ml Intravenous Given by Troy Ford RN [facility] kmavis 10:15 AM Time: 10:15 Angiomax 1.75mg/kg/hr: 29.8 ml/hr Intravenous Given by Troy Ford RN [facility] kmavis 10:16 AM .014 PT Graphix 182cm guide wire across target lesion- successful. reused? No kmavis 10:16 AM Time: 10:16 Fentanyl 25 mcg Intravenous Given by Tryo Ford RN kmavis 10:17 AM HR=65 bpm, TIUQ=601/89 mmhg, SpO2=95 %, Resp=14 B/min 10:18 AM Asist FFR Catheter advanced to target lesion. kmavis 10:18 AM Pressure channel 4 equalized to channel 1. 10:19 AM Time: 10:18 90mg Adenosine in 90 ml 0.9 NS 714 ml/hr Intravenous Given by Troy Ford RN [facility] kmavis 10:21 AM Recorded Pressure: Ao, PV1, HR=71, Condition=Condition 1 (Aorta) Ao 118/68/91, (Portal Vein) PV1 123/121/91 10:22 AM Flow Wire/Catheter removed intact kmavis 10:22 AM FFR Measurement: 0.98 kmavis 10:22 AM Catheter removed kmavis 10:22 AM HR=65 bpm, LLLX=164/88 mmhg, SpO2=94 %, Resp=12 B/min 10:23 AM Angiomax and Adenosine turned off. kmavis 10:23 AM Procedure completed at 10:23 07/18/2018 kmavis 10:24 AM Did you address BLAS flow and Dominance? Yes kmavis 10:26 AM Vitals capture stopped. 10:28 AM Coronary Dominance: right kmavis 10:29 AM Lesion found in Proximal RCA. Pre Stenosis: 25 Pre BLAS Flow: kmavis 10:29 AM Lesion found in Mid RCA. Pre Stenosis: 40 Pre BLAS Flow: kmavis 10:29 AM Lesion found in Distal RCA. Pre Stenosis: 40 Pre BLAS Flow: kmavis 10:30 AM Patient arrive to HR SDS 14. Patient drowsy, oxygen saturation 90% on RA. O2 2L NC applied mprater 10:30 AM Lesion found in Proximal LMCA. Pre Stenosis: 50 Pre BLAS Flow: kmavis 10:35 AM Patient out of room: 10:35 kmavis 10:35 AM Sign out completed: Radiation Dose 177.46 mGy, 40.4 Gy/cm2 Fluoro Time: 3 Isovue 370 - 200ml contrast 87 ml given by Andreea Tang MD, FACC. Complications: None. The patient was discharged out of the [facility] in stable condition. Sedation minutes 30. Cardiac Rehab Consult needed: No. Confirmed administered medications: Yes kmavis 10:35 AM Isovue 370 - 200ml,1 Bottle(s) used. kmavis 10:35 AM Sheath left in place to be pulled on floor/holding areaV+Pad kmavis 10:36 AM Estimated Blood Loss: minimal kmavis 10:36 AM Post ECG NSR kmavis 10:36 AM Information taught Cardiac Cath kmavis 10:36 AM Education needs Procedure, Plan of Care, and Disease Process kmavis 10:36 AM Learning barriers :None kmavis 10:36 AM Education Methods Verbal kmavis 10:36 AM Education evaluation Able to repeat information kmavis 10:36 AM Site status No bleeding/hematoma - Lt Groin as reported by Ash Mohr RT (R) at 10:36 kmavis 10:36 AM Opsite applied kmavis 10:36 AM Report given to Maria Isabel MEJIA Pt taken to Holding room Room #14. 10:36 kmavis 10:37 AM Plavix, Effient or Brilinta given Yes- on 3b prior to arriving to [facility] kmavis 10:37 AM Family placed in consult room. kmavis 10:37 AM Complications: None kmavis 10:37 AM Lesion found in Proximal LAD. Pre Stenosis: 30 Pre BLAS Flow: kmavis 10:38 AM Lesion found in Mid LAD. Pre Stenosis: 25 Pre BLAS Flow: kmavis 10:38 AM Lesion found in 1st Diagonal. Pre Stenosis: 95 Pre BLAS Flow: kmavis 10:38 AM Lesion found in 2nd Diagonal. Pre Stenosis: 30 Pre BLAS Flow: kmavis 10:38 AM Lesion found in Proximal Circumflex. Pre Stenosis: 25 Pre BLAS Flow: kmavis 10:39 AM Lesion found in Mid Circumflex. Pre Stenosis: 20 Pre BLAS Flow: kmavis 10:39 AM Left Main Coronary Artery with 50% stenosis kmavis 10:39 AM Proximal Left Anterior Descending Coronary Artery with 30% stenosis. If graft is supplying this territory, 0 % stenosis. kmavis 10:39 AM Mid/Distal Left Anterior Descending Coronary Artery and diagonal branches with 95% stenosis. If graft is supplying this area, 0 % stenosis kmavis 10:40 AM Circumflex, Obtuse Marginal, Left Posterior Descending, and Left Posterolateral Coronary Arteries with 25 % stenosis. If graft is supplying this area, 0 % stenosis kmavis 10:40 AM Right Coronary, Right Posterior Descending Arteries with Right Posterolateral and Acute Marginal branches with 40 % stenosis. If graft is supplying this area, 0 % stenosis kmavis 10:56 AM family at bedside, pt given sips of water [email or web address] 11:08 AM helped pt to find a position of comfort, c/o aching back and hip [email or web address] 12:30 PM Arterial sheath pulled using manual compression and V+ Pad for 15 minutes by Asiya Lubin RN [email or web address] 12:45 PM Site status No bleeding/hematoma - Rt Groin as reported by Asiya Lubin RN at 12:53 [email or web address] 12:46 PM Opsite applied [email or web address] 12:53 PM Report given to Dasha MEJIA Pt taken to Room #44. 12:53 [email or web address] 12:56 PM Patient out of room: 12:56 [email or web address] Complications Complication None None Hemodynamics Pressures Site Systolic/A Wave Diastolic/V Wave Mean AO 155 85 111 AO 123 73 97 LV 132 -3 12 LV 85 62 57 AO 95 68 82 AO 118 68 91 PV1 123 121 91 Post Procedure Information Rhythm: NSR Post procedural instructions were given Site Checks Time Location Status Staff Sheath In? Note 10:30 AM Lt Groin No bleeding/ No Hematoma Yolanda King RN Yes 10:36 AM Lt Groin No bleeding/hematoma Ash Mohr RT (R) Yes 10:45 AM Lt Groin No bleeding/ No Hematoma Kajal Wright RN Yes 11:00 AM Lt Groin No bleeding/ No Hematoma Kajal Wright RN Yes 11:15 AM Lt Groin No bleeding/ No Hematoma Kajal Wright RN Yes 11:30 AM Lt Groin No bleeding/ No Hematoma Kajal Wright RN Yes 11:52 AM Lt Groin No bleeding/ No Hematoma Marline Cain RT (R) 12:14 PM Lt Groin No bleeding/ No Hematoma Marline Cain RT (R) 12:30 PM Lt Groin No bleeding/ No Hematoma Asiya Lubin RN 12:46 PM Lt Groin No bleeding/ No Hematoma Asiya Lubin RN 12:53 PM Rt Groin No bleeding/hematoma Asiya Lubin RN Pulses Time Site Pre-Procedure Post-Procedure Note 07/18/2018 8:09:00 AM Bilateral DP & PT 2+ 07/18/2018 8:09:00 AM Bilateral radial 2+ 07/18/2018 10:30:00 AM Bilateral DP & PT 2+ 07/18/2018 11:52:00 AM Bilateral DP & PT 2+ 07/18/2018 12:14:00 PM Bilateral DP & PT 2+ Updated by Kajal Wright RN on 07/18/2018 12:56:37 PM electronically signed on 07/18/2018 12:58:10 PM with status of Final
--- NOTE | 2018-07-18 13:52 | Discharge Summary ---
- NOTES TO OUTPATIENT PROVIDER Notes to Outpatient Provider: Follow up with PCP in one week. Please start taking Metoporlol 50mg PO BID Date of Encounter: 07/18/18 Time of Encounter: 13:47 - Discharge Diagnosis (1) Chest pain Priority: Primary Status: Acute Qualifiers: Chest pain type: unspecified Qualified Code(s): R07.9 - Chest pain, unspecified (2) NSTEMI (non-ST elevated myocardial infarction) Priority: Primary Status: Acute (3) CAD (coronary artery disease) Priority: Secondary Status: Chronic Qualifiers: Coronary Disease-Associated Artery/Lesion type: [place] artery [place] vs. transplanted heart: [place] heart Associated angina: angina presence unspecified Qualified Code(s): I25.10 - Atherosclerotic heart disease of [place] coronary artery without angina pectoris (4) COPD without exacerbation Priority: Secondary Status: Chronic (5) Essential hypertension Priority: Secondary Status: Chronic (6) Hypothyroidism Priority: Secondary Status: Chronic Qualifiers: Hypothyroidism type: acquired Qualified Code(s): E03.9 - Hypothyroidism, unspecified (7) DVT prophylaxis Priority: Secondary Status: Acute (8) Obesity Priority: Secondary Status: Chronic Qualifiers: Obesity classification: adult class 1 (BMI 30 - 34.9) Serious obesity comorbidity presence: without serious comorbidity Body mass index: BMI 33.0- 33.9 Qualified Code(s): E66.9 - Obesity, unspecified; Z68.33 - Body mass index (BMI) 33.0-33.9, adult (9) Anemia Priority: Secondary Status: Chronic Qualifiers: Anemia type: unspecified type Qualified Code(s): D64.9 - Anemia, unspecified Hospital course: Ms. Hawley is a 77-year-old female with past medical history significant for COPD, Severe 2 vessel CAD s/p PCI x mid Circ, Distal Circ and OM2 on 07/15/2017, and atrial fibrillation anticoagulated on Eliquis pt presented to ER with midsternal chest pain that she experienced while getting out of her bed , associated with nausea with no vomiting. she is describing as being similar to the chest pain that she experiences during her prior myocardial infarction and was not alleviated by 3 doses of nitroglycerin as well as baby aspirin that she took at home. She was admitted in the hospital and placed on teletypesetter monitor. Her troponin slightly elevated and peaked at 0.12. Patient was evaluated by home service director who did LHC today which showed Double vessel CAD. No intervention recommended other than optimal medical management. Since pt's BP slightly elevated, increased her Metoporlol to 50mg PO BID. She denied any more CP. So will d/c her home in stable condition today. - Time Spent with Patient Total time spent providing and/or coordinating discharge services: - Discharge Medications Prescriptions: Continue Gabapentin [Neurontin] 600 mg PO TID Albuterol Sulfate [Proair Hfa] 2 puff IH Q4H PRN PRN Reason: Shortness Of Breath Sulfamethoxazole/Trimeth DS [Bactrim Ds] 1 tab PO Q48H traZODone [TraZODone] 150 mg PO HS Potassium Chloride [K-Tab ER] 10 meq PO BID Levothyroxine Sodium [Levoxyl] 50 mcg PO DAILY Furosemide [Lasix] 20 mg PO BID PRN PRN Reason: Edema Omeprazole [PriLOSEC] 20 mg PO BIDAC Clopidogrel [Plavix] 75 mg PO DAILY #30 tablet Diltiazem CD (24hr) [Cardizem CD] 120 mg PO DAILY #30 cap.er.24h Apixaban [Eliquis] 5 mg PO BID Oxaprozin [Daypro] 600 mg PO BID Cefdinir [Omnicef] 300 mg PO DAILY Tizanidine HCl 4 mg PO Q8H PRN PRN Reason: Muscle Spasm Changed Metoprolol Tartrate [Lopressor] 50 mg PO BID #60 tablet Home Medications: Albuterol Sulfate [Proair Hfa] 2 puff IH Q4H PRN 07/14/17 [History] Furosemide [Lasix] 20 mg PO BID PRN 07/14/17 [History] Gabapentin [Neurontin] 600 mg PO TID 07/14/17 [History] Levothyroxine Sodium [Levoxyl] 50 mcg PO DAILY 07/14/17 [History] Omeprazole [PriLOSEC] 20 mg PO BIDAC 07/14/17 [History] Potassium Chloride [K-Tab ER] 10 meq PO BID 07/14/17 [History] Sulfamethoxazole/Trimeth DS [Bactrim Ds] 1 tab PO Q48H 07/14/17 [History] traZODone [TraZODone] 150 mg PO HS 07/14/17 [History] Clopidogrel [Plavix] 75 mg PO DAILY #30 tablet 07/17/17 [Rx] Diltiazem CD (24hr) [Cardizem CD] 120 mg PO DAILY #30 cap.er.24h 07/17/17 [Rx] Apixaban [Eliquis] 5 mg PO BID 07/16/18 [History] Cefdinir [Omnicef] 300 mg PO DAILY 07/16/18 [History] Oxaprozin [Daypro] 600 mg PO BID 07/16/18 [History] Tizanidine HCl 4 mg PO Q8H PRN 07/17/18 [History] Metoprolol Tartrate [Lopressor] 50 mg PO BID #60 tablet 07/18/18 [Rx] Allergies/Adverse Reactions: Allergy/AdvReac Type Severity Reaction Status Date / Time lisinopril Allergy Difficulty Verified 07/14/17 09:29 Breathing meloxicam Allergy Cough Verified 07/14/17 09:29 [id number]-Vjl Reductase Allergy Difficulty Verified 07/14/17 09:29 Inhibitor Swallowing [Statins] Date of admission: 07/16/18 11:55 Primary care physician: Davi Hodges Consults: 07/16/18 13:09 Consult to Physician [CONS] Routine Consulting Provider: Cesar Kulkarni Reason for Consult: cp Time Notified: 13:09 Call Completed: Yes - Constitutional Vitals: Temp Pulse Resp BP Pulse Ox 97.4 F L 69 18 160/89 96 07/18/18 07:20 07/18/18 07:20 07/18/18 07:20 07/18/18 07:20 07/18/18 07:20 General appearance: Present: A&O X 3, no acute distress, answers questions appropriately Exam: Gen: Alert, awake, Oriented to time,place and person Chest: Diminished breath sounds B/L, No wheezing, No crackles, No rales Heart: S1S2+ RRR No murmurs Abd: Soft, NT, BS +, No organomegaly Ext: No edema, pulses are palpable, No calf tenderness Neuro : Benign findings Skin: No rash. - Patient Status Disposition: Home, Self-Care Condition: Good Overall status at discharge: patient is back to baseline - Discharge Instructions Follow Up With: Davi Hodges [Primary Care Provider] - 07/27/18 11:30 am Bria Melton [Partnered Physician] - - Diet and Activity Activity: increase activity as tolerated Diet: low salt diet
[2018-07-18 16:29] VITALS: BP 117/70
[2018-07-18] MEDS: Sulfamethoxazole/Trimeth DS 1 EACH TABLET PO SCH (16:44)
[2018-07-18] MEDS: *HR* HYDROcodone/Acet 5/325 mg TABLET PO PRN (17:53)
[2018-07-18] MEDS ORDERED: Adenosine 90 MG/30 ML MLS IV ONE (18:05)
[2018-07-18] MEDS ORDERED: Apixaban 5 MG TABLET PO SCH (21:00)
== END 2018-07-18 18:06 | disposition home or self-care (01) ==
LOC: 3BNU 10:07 → EMEROOARM 10:07 → SUATTDRO 11:55 → 3BNU 13:14
PROVIDERS: ADMIT Internal Medicine Nephrology; ATTEND Family Medicine

== ENCOUNTER 2019-10-17 06:29 | Inpatient (IN) ==
[2019-10-17] MEDS ORDERED: CeFAZolin Syr 2,000MG/20 ML 2,000 MG/20 ML SYRINGE IVPB ONE (06:48)
[2019-10-17] MEDS ORDERED: Aspirin 81 MG TAB.CHEW PO ONE (06:51)
[2019-10-17] MEDS ORDERED: *HR* Midazolam HCl 5 MG/5 ML VIAL IVP ONE (06:54)
[2019-10-17] MEDS ORDERED: *HR* Propofol 200 MG/20 ML VIAL IVP ONE (06:54)
[2019-10-17] MEDS ORDERED: *HR* FentaNYL (PF) 1,000 MCG/20 ML VIAL ONE (06:54)
[2019-10-17] MEDS ORDERED: Lidocaine 2% Syringe 100 MG/5 ML ONE (06:57)
[2019-10-17] MEDS ORDERED: Tranexamic Acid 1,000 MG/10 ML VIAL ONE (06:57)
[2019-10-17] MEDS ORDERED: Ringers Solution, Lactated 1,000 ML IVC SCH (07:00)
[2019-10-17] MEDS ORDERED: Famotidine 20 MG/2 ML VIAL ONE (07:04)
[2019-10-17] MEDS ORDERED: *HR* Magnesium Sulfate 1 GM/2 ML VIAL ONE (07:04)
[2019-10-17] MEDS ORDERED: Dexamethasone 4 MG/ML VIAL ONE (07:06)
[2019-10-17] MEDS ORDERED: *HR* Rocuronium Bromide 50 MG/5 ML VIAL ONE ×3 (07:06→11:55)
[2019-10-17] MEDS ORDERED: *HR* PHENYLEPHRINE 1,000 MCG/10 ML SYRINGE IVP ONE (07:06)
[2019-10-17] MEDS ORDERED: Chlorhexidine Rinse 15 ML MOUTHWASH MM SCH (07:15)
[2019-10-17] MEDS ORDERED: Dextrose 50 % in Water (Vial) 30 ML, Sodium Bicarbonate 20 MEQ, Lidocaine 1% 5 ML, Insu... TH ONE ×3 (07:45)
[2019-10-17] MEDS ORDERED: Heparin 15,000 UNIT in 0.9 % Sodium Chloride 500 ML IV ONE (07:45)
[2019-10-17] MEDS ORDERED: Norepinephrine 4 MG in 0.9 % Sodium Chloride 250 ML IVC PRN (07:45)
[2019-10-17] MEDS ORDERED: Dextrose 50 % in Water (Vial) 30 ML, Sodium Bicarbonate 20 MEQ, Potassium Chloride 15 M... TH ONE (07:45)
[2019-10-17] MEDS ORDERED: Insulin Human Regular 100 UNIT in 0.9 % Sodium Chloride 100 ML IV PRN (07:45)
[2019-10-17] MEDS ORDERED: Albumin Human 5% 50.0 GM/1,000 ML IV.SOLN ONE (08:29)
[2019-10-17 08:34] LABS: ABG Base Excess -4 mEq/L (-2 to 3); ABG Chloride 110 mEq/L (98-107); ABG Glucose 88 mg/dL (60-95); ABG HCO3 21 mEq/L (21-27); ABG Ionized Calcium 1.24 mmol/L (1.15-1.35); ABG Oxygen Saturation 100 % (95-98); ABG PCO2 37 mmHg (35-45); ABG PH 7.36 pH Units (7.32-7.45); ABG PO2 386 mmHg (85-104); ABG TCO2 22 mEq/L (20-26)
[2019-10-17 09:57] LABS: ABG Base Excess -6 mEq/L (-2 to 3); ABG Chloride 110 mEq/L (98-107); ABG Glucose 104 mg/dL (60-95); ABG HCO3 20 mEq/L (21-27); ABG Ionized Calcium 1.15 mmol/L (1.15-1.35); ABG Oxygen Saturation 100 % (95-98); ABG PCO2 35 mmHg (35-45); ABG PH 7.35 pH Units (7.32-7.45); ABG PO2 268 mmHg (85-104); ABG TCO2 21 mEq/L (20-26)
[2019-10-17] MEDS ORDERED: Calcium Gluconate 1,000 MG/10 ML VIAL ONE ×2 (10:05→12:39)
[2019-10-17] MEDS ORDERED: Protamine Sulfate 250 MG/25 ML VIAL IVP ONE (10:05)
[2019-10-17 10:40] LABS: ABG Base Excess 12 mEq/L (-2 to 3); ABG Chloride 101 mEq/L (98-107); ABG Glucose 154 mg/dL (60-95); ABG HCO3 35 mEq/L (21-27); ABG Ionized Calcium 0.86 mmol/L (1.15-1.35); ABG PCO2 40 mmHg (35-45); ABG PH 7.55 pH Units (7.32-7.45); ABG PO2 > 630 mmHg (85-104); ABG TCO2 36 mEq/L (20-26)
[2019-10-17 11:11] LABS: ABG Base Excess 1 mEq/L (-2 to 3); ABG Chloride 104 mEq/L (98-107); ABG Glucose 87 mg/dL (60-95); ABG HCO3 25 mEq/L (21-27); ABG Ionized Calcium 1.01 mmol/L (1.15-1.35); ABG Oxygen Saturation 100 % (95-98); ABG PCO2 37 mmHg (35-45); ABG PH 7.44 pH Units (7.32-7.45); ABG PO2 611 mmHg (85-104); ABG TCO2 26 mEq/L (20-26)
[2019-10-17] MEDS ORDERED: Amiodarone Premix 360 MG/200 ML BAG IVC ONE ×2 (11:23→13:27)
[2019-10-17] MEDS ORDERED: Albumin Human 5% 12.5 GM/250 ML IV.SOLN ONE ×2 (11:26→12:23)
[2019-10-17] MEDS ORDERED: *HR* Amiodarone 150 MG/3 ML VIAL IVPB ONE (11:28)
[2019-10-17] MEDS ORDERED: *HR* Dextrose 50 % in Water (Syg) 50 ML SYRINGE ONE (12:06)
[2019-10-17 12:09] LABS: ABG Base Excess 0 mEq/L (-2 to 3); ABG Chloride 103 mEq/L (98-107); ABG Glucose 60 mg/dL (60-95); ABG HCO3 25 mEq/L (21-27); ABG Ionized Calcium 1.23 mmol/L (1.15-1.35); ABG Oxygen Saturation 100 % (95-98); ABG PCO2 40 mmHg (35-45); ABG PH 7.41 pH Units (7.32-7.45); ABG PO2 617 mmHg (85-104); ABG TCO2 26 mEq/L (20-26)
[2019-10-17] MEDS ORDERED: EPINEPHrine 1 MG/ML VIAL ONE (12:18)
[2019-10-17 12:40] LABS: ABG Base Excess -4 mEq/L (-2 to 3); ABG Chloride 106 mEq/L (98-107); ABG Glucose 185 mg/dL (60-95); ABG HCO3 24 mEq/L (21-27); ABG Ionized Calcium 1.08 mmol/L (1.15-1.35); ABG Oxygen Saturation 100 % (95-98); ABG PCO2 67 mmHg (35-45); ABG PH 7.17 pH Units (7.32-7.45); ABG PO2 286 mmHg (85-104); ABG TCO2 26 mEq/L (20-26)
[2019-10-17] MEDS ORDERED: Protamine Sulfate 50 MG/5 ML VIAL IVP ONE (12:41)
[2019-10-17 13:18] LABS: ABG Base Excess -2 mEq/L (-2 to 3); ABG Chloride 107 mEq/L (98-107); ABG Glucose 191 mg/dL (60-95); ABG HCO3 23 mEq/L (21-27); ABG Ionized Calcium 0.91 mmol/L (1.15-1.35); ABG Oxygen Saturation 100 % (95-98); ABG PCO2 40 mmHg (35-45); ABG PH 7.37 pH Units (7.32-7.45); ABG PO2 449 mmHg (85-104); ABG TCO2 24 mEq/L (20-26)
[2019-10-17] MEDS ORDERED: Naloxone 0.4 MG/ML INJ IVP PRN (13:27)
[2019-10-17] MEDS ORDERED: Acetaminophen 325 MG TABLET PO PRN (13:27)
[2019-10-17] MEDS ORDERED: Potassium Chloride 40 MEQ/200 ML BAG IVPB PRN (13:27)
[2019-10-17] MEDS ORDERED: *HR* Dextrose 50 % in Water (Vial) 50 ML VIAL IVP PRN (13:27)
[2019-10-17] MEDS ORDERED: Calcium Gluconate 1gm/50mL 1 GM/50 ML BAG IVPB PRN (13:27)
[2019-10-17] MEDS ORDERED: Insulin Regular, Human 100 UNIT/ML IV PRN (13:27)
[2019-10-17] MEDS ORDERED: Acetaminophen 650 MG RECTAL SUPP RC PRN (13:27)
[2019-10-17] MEDS ORDERED: 0.9 % Sodium Chloride 1,000 ML IVC SCH (13:30)
[2019-10-17 14:26] LABS: ABG Base Excess -5 mEq/L (-2 to 3); ABG HCO3 20 mEq/L (21-27); ABG Oxygen Saturation 95 % (95-98); ABG PCO2 37 mmHg (35-45); ABG PH 7.34 pH Units (7.32-7.45); ABG PO2 80 mmHg (85-104); ABG TCO2 21 mEq/L (20-26); Blood Gas VT 500 cc
[2019-10-17 14:39] LABS: Basophils % 0.3 %; Eosinophils % 0.5 %
[2019-10-17 14:41] LABS: Basophils # 0.1 K/mcL (0.0-0.2); Eosinophils # 0.1 K/mcL (0.0-0.6); Hematocrit 33.1 % (35.3-44.9); Hemoglobin 10.8 g/dL (11.5-15.4); Immature Granulocytes % 1.7 % (0-4); Immature Platelets 3.1 % (1.1-6.1); Lymphocytes # 2.8 K/mcL (0.6-4.6); Lymphocytes % 12.4 %; Mean Corpuscular HGB Conc 32.6 g/dL (31.6-35.5); Mean Corpuscular Hemoglobin 27.8 pg (28.0-33.3); Mean Corpuscular Volume 85.3 fL (83.0-100.0); Monocytes # 1.5 K/mcL (0.0-1.3); Monocytes % 6.7 %; Neutrophils # 17.4 K/mcL (1.6-8.9); Red Blood Count 3.88 M/mcL (3.82-4.97); Red Cell Distribution Width 15.1 % (11.5-14.5); Segmented Neutrophils % 78.4 %; White Blood Count 22.2 K/mcL (4.3-11.1)
[2019-10-17 14:50] LABS: INR 1.4
[2019-10-17 14:52] LABS: Activated Partial Thrombo Time 65.5 Seconds (26.0-36.0)
[2019-10-17 14:56] LABS: BUN/Creatinine Ratio 16 (6-26); Blood Urea Nitrogen 12 mg/dL (8-23); Calcium 6.8 mg/dL (8.6-10.3); Carbon Dioxide 21 mEq/L (23-29); Chloride 110 mEq/L (98-107); Glucose 214 mg/dL (70-105); Magnesium 2.2 mg/dL (1.6-2.6); Osmolality,Calculated 302 (280-300); Potassium 3.2 mEq/L (3.5-5.1); Sodium 143 mEq/L (136-145); eGFR For African Americans > 60 (> 60); eGFR For Non-African Americans > 60 (> 60)
[2019-10-17 15:04] LABS: Platelet Count 73 K/mcL (140-400)
[2019-10-17] MEDS: Albumin Human 5% 12.5 GM/250 ML IV.SOLN IVPB PRN ×4 (15:05→23:49)
[2019-10-17] MEDS: *HR* FentaNYL (PF) 100 MCG/2 ML VIAL IVP PRN ×2 (15:25→21:51)
[2019-10-17] MEDS: Pantoprazole 40 MG VIAL IVP SCH (15:44)
[2019-10-17] MEDS ORDERED: *HR* Phenylephrine 10 MG/ML VIAL IVC ONE (15:48)
[2019-10-17] MEDS ORDERED: Mannitol 25% vial 12.5 GM/50 ML VIAL IVP ONE (15:48)
[2019-10-17] MEDS ORDERED: *HR* Heparin 10,000 UNIT/10 ML VIAL IR ONE (15:48)
[2019-10-17] MEDS ORDERED: Tranexamic Acid 1,000 MG/10 ML VIAL IR ONE (15:48)
[2019-10-17] MEDS ORDERED: *HR* Magnesium Sulfate 2 GM/50 ML PIGGYBACK IVPB ONE (15:48)
[2019-10-17] MEDS ORDERED: Albumin Human 25% 25 GM/100 ML IV.SOLN IVPB ONE (15:48)
[2019-10-17] MEDS ORDERED: Lidocaine 2% Syringe 100 MG/5 ML IVP ONE (15:48)
[2019-10-17] MEDS: Insulin Human Regular 100 UNIT in 0.9 % Sodium Chloride 100 ML IVC SCH (16:00)
[2019-10-17] MEDS ORDERED: CeFAZolin 2 GM/120 ML BAG IVPB SCH (16:00)
[2019-10-17] MEDS: *HR* OxyCODONE/APAP 5/325 TABLET PO PRN ×2 (16:24→20:13)
[2019-10-17 17:14] LABS: ABG Base Excess -6 mEq/L (-2 to 3); ABG HCO3 17 mEq/L (21-27); ABG Oxygen Saturation 98 % (95-98); ABG PCO2 27 mmHg (35-45); ABG PH 7.43 pH Units (7.32-7.45); ABG PO2 105 mmHg (85-104); ABG TCO2 18 mEq/L (20-26)
[2019-10-17 18:12] LABS: ABG Base Excess -7 mEq/L (-2 to 3); ABG HCO3 17 mEq/L (21-27); ABG Oxygen Saturation 98 % (95-98); ABG PCO2 28 mmHg (35-45); ABG PH 7.39 pH Units (7.32-7.45); ABG PO2 104 mmHg (85-104); ABG TCO2 18 mEq/L (20-26)
[2019-10-17] MEDS: niCARdipine 20 MG/200 ML MLS IVC SCH ×2 (18:44→19:52)
[2019-10-17] MEDS: Norepinephrine 4 MG/254 ML IV.SOLN IVC SCH (18:44)
[2019-10-17] MEDS: Chlorhexidine Rinse 15 ML MOUTHWASH MM SCH (20:13)
[2019-10-17] MEDS: CeFAZolin 2 GM/120 ML BAG IVPB SCH (20:14)
[2019-10-18] MEDS: *HR* OxyCODONE/APAP 5/325 TABLET PO PRN ×3 (00:09→14:50)
[2019-10-18] MEDS ORDERED: Ondansetron 4 MG/2 ML VIAL ONE (01:05)
[2019-10-18] MEDS: Ondansetron 4 MG/2 ML VIAL IVP PRN ×3 (01:10→14:50)
[2019-10-18] MEDS: Norepinephrine 4 MG/254 ML IV.SOLN IVC SCH ×2 (01:20→19:42)
[2019-10-18] MEDS: niCARdipine 20 MG/200 ML MLS IVC SCH ×4 (01:36→20:45)
[2019-10-18] MEDS: *HR* FentaNYL (PF) 100 MCG/2 ML VIAL IVP PRN (03:09)
[2019-10-18 04:13] LABS: INR 1.3; Prothrombin Time 14.6 Seconds (9.4-12.1)
[2019-10-18 04:20] LABS: Activated Partial Thrombo Time 31.7 Seconds (26.0-36.0)
[2019-10-18 04:21] LABS: Basophils % 0.1 %; Hematocrit 20.8 % (35.3-44.9); Hemoglobin 6.9 g/dL (11.5-15.4); Immature Granulocytes % 0.3 % (0-4); Immature Platelets 4.8 % (1.1-6.1); Lymphocytes # 0.7 K/mcL (0.6-4.6); Lymphocytes % 6.9 %; Mean Corpuscular HGB Conc 33.2 g/dL (31.6-35.5); Mean Corpuscular Hemoglobin 28.6 pg (28.0-33.3); Mean Corpuscular Volume 86.3 fL (83.0-100.0); Mean Platelet Volume 10.4 fL (9.4-12.4); Monocytes # 0.9 K/mcL (0.0-1.3); Monocytes % 8.3 %; Neutrophils # 8.6 K/mcL (1.6-8.9); Red Blood Count 2.41 M/mcL (3.82-4.97); Red Cell Distribution Width 14.8 % (11.5-14.5); Segmented Neutrophils % 84.4 %; White Blood Count 10.2 K/mcL (4.3-11.1)
[2019-10-18 04:24] LABS: Platelet Count 73 K/mcL (140-400)
[2019-10-18 04:35] LABS: BUN/Creatinine Ratio 17 (6-26); Blood Urea Nitrogen 16 mg/dL (8-23); Calcium 7.4 mg/dL (8.6-10.3); Carbon Dioxide 23 mEq/L (23-29); Chloride 108 mEq/L (98-107); Glucose 119 mg/dL (70-105); Osmolality,Calculated 290 (280-300); Potassium 3.9 mEq/L (3.5-5.1); Sodium 139 mEq/L (136-145); eGFR For African Americans > 60 (> 60); eGFR For Non-African Americans 57 (> 60)
[2019-10-18] MEDS: CeFAZolin 2 GM/120 ML BAG IVPB SCH (05:10)
[2019-10-18] MEDS: Amiodarone Premix 360 MG/200 ML BAG IVC SCH ×2 (05:59→18:50)
[2019-10-18] MEDS: Aspirin Enteric Coated 81 MG Tablet PO SCH (07:37)
[2019-10-18] MEDS: Pantoprazole 40 MG VIAL IVP SCH (07:37)
[2019-10-18] MEDS: Chlorhexidine Rinse 15 ML MOUTHWASH MM SCH ×2 (07:37→20:37)
[2019-10-18] MEDS ORDERED: *HR* Dextrose 50 % in Water (Vial) 50 ML VIAL IVP PRN (07:38)
[2019-10-18] MEDS ORDERED: Dextrose Gel 15 GM/37.5 ML TUBE PO PRN ×2 (07:38)
[2019-10-18] MEDS ORDERED: D5% in Water 1,000 ML IVC PRN (07:38)
[2019-10-18 07:50] LABS: Hematocrit 21.1 % (35.3-44.9); Hemoglobin 6.8 g/dL (11.5-15.4)
[2019-10-18] MEDS: Furosemide 20 MG/2 ML VIAL IVP SCH ×2 (10:16→20:37)
[2019-10-18] MEDS: *HR* Heparin 5,000 UNIT/ML VIAL SQ SCH ×2 (10:40→17:43)
[2019-10-18] MEDS ORDERED: *HR* FentaNYL (PF) 100 MCG/2 ML VIAL IVP PRN (13:27)
[2019-10-18] MEDS: Insulin LISPRO 300 UNITS/3 ML VIAL SQ SCH ×2 (16:43→20:38)
[2019-10-18] MEDS: Gabapentin 300 MG CAPSULE PO SCH ×2 (17:42→20:37)
[2019-10-18] MEDS ORDERED: Gabapentin 300 MG CAPSULE PO SCH (21:00)
[2019-10-19] MEDS: niCARdipine 20 MG/200 ML MLS IVC SCH ×6 (01:45→23:41)
[2019-10-19] MEDS: *HR* OxyCODONE/APAP 5/325 TABLET PO PRN ×2 (01:46→11:22)
[2019-10-19 03:28] LABS: Immature Granulocytes % 0.7 % (0-4)
[2019-10-19 03:29] LABS: Basophils % 0.2 %; Hematocrit 25.7 % (35.3-44.9); Hemoglobin 8.5 g/dL (11.5-15.4); Immature Platelets 5.2 % (1.1-6.1); Lymphocytes # 1.3 K/mcL (0.6-4.6); Lymphocytes % 9.5 %; Mean Corpuscular HGB Conc 33.1 g/dL (31.6-35.5); Mean Corpuscular Hemoglobin 28.9 pg (28.0-33.3); Mean Corpuscular Volume 87.4 fL (83.0-100.0); Mean Platelet Volume 10.8 fL (9.4-12.4); Monocytes % 7.5 %; Neutrophils # 11.1 K/mcL (1.6-8.9); Red Blood Count 2.94 M/mcL (3.82-4.97); Segmented Neutrophils % 82.1 %; White Blood Count 13.5 K/mcL (4.3-11.1)
[2019-10-19 03:35] LABS: Platelet Count 89 K/mcL (140-400)
[2019-10-19 03:47] LABS: BUN/Creatinine Ratio 22 (6-26); Blood Urea Nitrogen 22 mg/dL (8-23); Calcium 7.4 mg/dL (8.6-10.3); Carbon Dioxide 25 mEq/L (23-29); Chloride 105 mEq/L (98-107); Glucose 131 mg/dL (70-105); Osmolality,Calculated 285 (280-300); Potassium 4.1 mEq/L (3.5-5.1); Sodium 135 mEq/L (136-145); eGFR For African Americans > 60 (> 60); eGFR For Non-African Americans 54 (> 60)
[2019-10-19] MEDS: *HR* Heparin 5,000 UNIT/ML VIAL SQ SCH (05:47)
[2019-10-19] MEDS: Amiodarone Premix 360 MG/200 ML BAG IVC SCH (07:17)
[2019-10-19] MEDS: Insulin LISPRO 300 UNITS/3 ML VIAL SQ SCH ×4 (09:58→20:27)
[2019-10-19] MEDS: Chlorhexidine Rinse 15 ML MOUTHWASH MM SCH ×2 (09:58→20:28)
[2019-10-19] MEDS: Aspirin Enteric Coated 81 MG Tablet PO SCH (09:58)
[2019-10-19] MEDS: Gabapentin 300 MG CAPSULE PO SCH ×3 (09:59→20:28)
[2019-10-19] MEDS: *HR* Amiodarone 200 MG TABLET PO SCH (09:59)
[2019-10-19] MEDS: Furosemide 20 MG/2 ML VIAL IVP SCH ×2 (10:00→20:25)
[2019-10-19] MEDS: Apixaban 5 MG TABLET PO SCH ×2 (10:00→20:28)
[2019-10-19] MEDS: Pantoprazole 40 MG VIAL IVP SCH (10:01)
[2019-10-19] MEDS: Norepinephrine 4 MG/254 ML IV.SOLN IVC SCH (13:33)
[2019-10-20] MEDS: niCARdipine 20 MG/200 ML MLS IVC SCH ×3 (00:53→07:41)
[2019-10-20 03:52] LABS: Basophils % 0.2 %; Eosinophils # 0.1 K/mcL (0.0-0.6); Eosinophils % 0.7 %; Hematocrit 24.9 % (35.3-44.9); Immature Granulocytes % 0.8 % (0-4); Lymphocytes # 1.1 K/mcL (0.6-4.6); Lymphocytes % 9.3 %; Mean Corpuscular HGB Conc 32.1 g/dL (31.6-35.5); Mean Corpuscular Hemoglobin 28.1 pg (28.0-33.3); Mean Corpuscular Volume 87.4 fL (83.0-100.0); Mean Platelet Volume 10.4 fL (9.4-12.4); Monocytes # 0.7 K/mcL (0.0-1.3); Monocytes % 6.2 %; Neutrophils # 9.5 K/mcL (1.6-8.9); Platelet Count 112 K/mcL (140-400); Red Blood Count 2.85 M/mcL (3.82-4.97); Red Cell Distribution Width 15.1 % (11.5-14.5); Segmented Neutrophils % 82.8 %; White Blood Count 11.5 K/mcL (4.3-11.1)
[2019-10-20 04:15] LABS: BUN/Creatinine Ratio 27 (6-26); Blood Urea Nitrogen 21 mg/dL (8-23); Calcium 7.2 mg/dL (8.6-10.3); Carbon Dioxide 22 mEq/L (23-29); Chloride 107 mEq/L (98-107); Glucose 86 mg/dL (70-105); Osmolality,Calculated 282 (280-300); Potassium 3.5 mEq/L (3.5-5.1); Sodium 135 mEq/L (136-145); eGFR For African Americans > 60 (> 60); eGFR For Non-African Americans > 60 (> 60)
[2019-10-20] MEDS: Gabapentin 300 MG CAPSULE PO SCH ×3 (08:15→19:58)
[2019-10-20] MEDS: Furosemide 20 MG/2 ML VIAL IVP SCH ×2 (08:16→19:59)
[2019-10-20] MEDS: Apixaban 5 MG TABLET PO SCH ×2 (08:16→19:58)
[2019-10-20] MEDS: Aspirin Enteric Coated 81 MG Tablet PO SCH (08:16)
[2019-10-20] MEDS: *HR* Amiodarone 200 MG TABLET PO SCH (08:16)
[2019-10-20] MEDS: Insulin LISPRO 300 UNITS/3 ML VIAL SQ SCH ×5 (08:18→19:59)
[2019-10-20] MEDS: *HR* OxyCODONE/APAP 5/325 TABLET PO PRN ×2 (08:23→19:58)
[2019-10-20] MEDS ORDERED: Famotidine 20 MG TABLET PO SCH (09:00)
[2019-10-20] MEDS ORDERED: Dextrose Gel 15 GM/37.5 ML TUBE PO PRN ×2 (11:28)
[2019-10-20] MEDS ORDERED: Ondansetron 4 MG/2 ML VIAL IVP PRN (11:28)
[2019-10-20] MEDS ORDERED: D5% in Water 1,000 ML IVC PRN (11:28)
[2019-10-20] MEDS ORDERED: *HR* Dextrose 50 % in Water (Vial) 50 ML VIAL IVP PRN (11:28)
[2019-10-20] MEDS ORDERED: Naloxone 0.4 MG/ML INJ IVP PRN (11:28)
[2019-10-20] MEDS ORDERED: Insulin Regular, Human 100 UNIT/ML IV PRN (11:28)
[2019-10-20] MEDS: Famotidine 20 MG TABLET PO SCH (19:58)
[2019-10-21] MEDS: Insulin LISPRO 300 UNITS/3 ML VIAL SQ SCH ×4 (07:39→21:02)
[2019-10-21] MEDS: Famotidine 20 MG TABLET PO SCH ×2 (07:55→19:56)
[2019-10-21] MEDS: Furosemide 20 MG/2 ML VIAL IVP SCH ×2 (07:55→19:57)
[2019-10-21] MEDS: Aspirin Enteric Coated 81 MG Tablet PO SCH (07:55)
[2019-10-21] MEDS: *HR* OxyCODONE/APAP 5/325 TABLET PO PRN ×4 (07:56→23:19)
[2019-10-21] MEDS: Apixaban 5 MG TABLET PO SCH ×2 (07:56→19:57)
[2019-10-21] MEDS: Gabapentin 300 MG CAPSULE PO SCH ×3 (07:56→19:56)
[2019-10-21] MEDS ORDERED: *HR* Amiodarone 200 MG TABLET PO SCH ×2 (08:30→09:00)
[2019-10-21] MEDS ORDERED: *HR* Amiodarone 200 MG TABLET PO ONE (08:33)
[2019-10-21] MEDS: Insulin Human Regular 100 UNIT in 0.9 % Sodium Chloride 100 ML IVC SCH (17:37)
[2019-10-21] MEDS: *HR* Amiodarone 200 MG TABLET PO SCH (19:57)
[2019-10-22] MEDS: *HR* OxyCODONE/APAP 5/325 TABLET PO PRN ×3 (05:48→23:07)
[2019-10-22 06:13] LABS: Hematocrit 24.9 % (35.3-44.9); Mean Corpuscular HGB Conc 32.1 g/dL (31.6-35.5); Mean Corpuscular Hemoglobin 29.2 pg (28.0-33.3); Mean Corpuscular Volume 90.9 fL (83.0-100.0); Mean Platelet Volume 9.7 fL (9.4-12.4); Platelet Count 224 K/mcL (140-400); Red Blood Count 2.74 M/mcL (3.82-4.97); Red Cell Distribution Width 15.3 % (11.5-14.5); White Blood Count 9.2 K/mcL (4.3-11.1)
[2019-10-22 06:33] LABS: BUN/Creatinine Ratio 22 (6-26); Blood Urea Nitrogen 17 mg/dL (8-23); Calcium 8.8 mg/dL (8.6-10.3); Carbon Dioxide 30 mEq/L (23-29); Chloride 100 mEq/L (98-107); Glucose 106 mg/dL (70-105); Magnesium 1.7 mg/dL (1.6-2.6); Osmolality,Calculated 282 (280-300); Potassium 4.2 mEq/L (3.5-5.1); Sodium 135 mEq/L (136-145); eGFR For African Americans > 60 (> 60); eGFR For Non-African Americans > 60 (> 60)
[2019-10-22] MEDS ORDERED: *HR* Amiodarone 200 MG TABLET PO SCH (09:00)
[2019-10-22] MEDS: Insulin LISPRO 300 UNITS/3 ML VIAL SQ SCH ×4 (09:22→21:31)
[2019-10-22] MEDS: Aspirin Enteric Coated 81 MG Tablet PO SCH (09:26)
[2019-10-22] MEDS: *HR* Amiodarone 200 MG TABLET PO SCH ×2 (09:26→21:30)
[2019-10-22] MEDS: Apixaban 5 MG TABLET PO SCH ×2 (09:27→21:30)
[2019-10-22] MEDS: Gabapentin 300 MG CAPSULE PO SCH ×3 (09:27→21:30)
[2019-10-22] MEDS: Famotidine 20 MG TABLET PO SCH ×2 (09:32→21:30)
[2019-10-22] MEDS ORDERED: 0.9 % Sodium Chloride 250 ML ONE (11:38)
[2019-10-23] MEDS: traZODone 50 MG TABLET PO SCH ×2 (00:41→21:08)
[2019-10-23] MEDS: Insulin LISPRO 300 UNITS/3 ML VIAL SQ SCH ×4 (08:47→21:10)
[2019-10-23] MEDS: *HR* Amiodarone 200 MG TABLET PO SCH ×2 (08:49→21:09)
[2019-10-23] MEDS: Aspirin Enteric Coated 81 MG Tablet PO SCH (08:50)
[2019-10-23] MEDS: Apixaban 5 MG TABLET PO SCH ×2 (08:50→21:09)
[2019-10-23] MEDS: Gabapentin 300 MG CAPSULE PO SCH ×3 (08:51→21:08)
[2019-10-23] MEDS: Famotidine 20 MG TABLET PO SCH ×2 (08:51→21:08)
[2019-10-23] MEDS: *HR* OxyCODONE/APAP 5/325 TABLET PO PRN ×2 (08:52→21:09)
[2019-10-23] MEDS: polyethylene glycoL 3350 17 GM POWD.PACK PO PRN (09:16)
[2019-10-23 09:59] LABS: Eosinophils # 0.2 K/mcL (0.0-0.6); Hematocrit 29.2 % (35.3-44.9); Hemoglobin 9.2 g/dL (11.5-15.4); Mean Corpuscular HGB Conc 31.5 g/dL (31.6-35.5); Mean Corpuscular Hemoglobin 28.2 pg (28.0-33.3); Mean Corpuscular Volume 89.6 fL (83.0-100.0); Mean Platelet Volume 9.3 fL (9.4-12.4); Nucleated Red Blood Cells 0.2 /100 WBC (0); Platelet Count 341 K/mcL (140-400); Red Blood Count 3.26 M/mcL (3.82-4.97); Red Cell Distribution Width 14.8 % (11.5-14.5); White Blood Count 8.4 K/mcL (4.3-11.1)
[2019-10-23 10:17] LABS: BUN/Creatinine Ratio 23 (6-26); Blood Urea Nitrogen 15 mg/dL (8-23); Calcium 9.2 mg/dL (8.6-10.3); Carbon Dioxide 30 mEq/L (23-29); Chloride 98 mEq/L (98-107); Glucose 124 mg/dL (70-105); Osmolality,Calculated 280 (280-300); Potassium 4.1 mEq/L (3.5-5.1); Sodium 134 mEq/L (136-145); eGFR For African Americans > 60 (> 60); eGFR For Non-African Americans > 60 (> 60)
[2019-10-23 10:26] LABS: Large Platelets Present (Not Present); Lymphocytes # 0.7 K/mcL (0.6-4.6); Monocytes # 0.8 K/mcL (0.0-1.3); Neutrophils # 6.7 K/mcL (1.6-8.9); Platelet Estimate Normal (Normal); Polychromasia 1+ (Not Present)
[2019-10-24] MEDS: *HR* OxyCODONE/APAP 5/325 TABLET PO PRN ×3 (03:16→20:39)
[2019-10-24 03:34] LABS: Eosinophils # 0.2 K/mcL (0.0-0.6); Hematocrit 26.3 % (35.3-44.9); Hemoglobin 8.5 g/dL (11.5-15.4); Mean Corpuscular HGB Conc 32.3 g/dL (31.6-35.5); Mean Corpuscular Hemoglobin 28.9 pg (28.0-33.3); Mean Corpuscular Volume 89.5 fL (83.0-100.0); Nucleated Red Blood Cells 0.2 /100 WBC (0); Platelet Count 380 K/mcL (140-400); Red Blood Count 2.94 M/mcL (3.82-4.97); Red Cell Distribution Width 14.9 % (11.5-14.5); White Blood Count 8.9 K/mcL (4.3-11.1)
[2019-10-24 03:53] LABS: BUN/Creatinine Ratio 27 (6-26); Blood Urea Nitrogen 18 mg/dL (8-23); Calcium 8.6 mg/dL (8.6-10.3); Carbon Dioxide 27 mEq/L (23-29); Chloride 99 mEq/L (98-107); Glucose 108 mg/dL (70-105); Osmolality,Calculated 278 (280-300); Potassium 4.3 mEq/L (3.5-5.1); Sodium 133 mEq/L (136-145); eGFR For African Americans > 60 (> 60); eGFR For Non-African Americans > 60 (> 60)
[2019-10-24 04:00] LABS: Anisocytosis 1+ (Not Present); Basophils # 0.2 K/mcL (0.0-0.2); Lymphocytes # 2.3 K/mcL (0.6-4.6); Neutrophils # 6.1 K/mcL (1.6-8.9); Platelet Estimate Normal (Normal); Polychromasia 1+ (Not Present); Smudge Cells Present (Not Present)
[2019-10-24] MEDS ORDERED: Bisacodyl 10 MG RECTAL SUPPOSITORY RC PRN (07:54)
[2019-10-24] MEDS: Aspirin Enteric Coated 81 MG Tablet PO SCH (07:55)
[2019-10-24] MEDS: Apixaban 5 MG TABLET PO SCH ×2 (07:55→20:39)
[2019-10-24] MEDS: Famotidine 20 MG TABLET PO SCH ×2 (07:55→20:39)
[2019-10-24] MEDS: *HR* Amiodarone 200 MG TABLET PO SCH ×2 (07:56→20:39)
[2019-10-24] MEDS: Gabapentin 300 MG CAPSULE PO SCH ×3 (07:56→20:39)
[2019-10-24] MEDS: Insulin LISPRO 300 UNITS/3 ML VIAL SQ SCH ×4 (08:14→22:07)
[2019-10-24] MEDS: polyethylene glycoL 3350 17 GM POWD.PACK PO PRN (13:46)
[2019-10-24] MEDS: traZODone 50 MG TABLET PO SCH (20:39)
[2019-10-25] MEDS: *HR* OxyCODONE/APAP 5/325 TABLET PO PRN (05:48)
[2019-10-25] MEDS: Apixaban 5 MG TABLET PO SCH (07:33)
[2019-10-25] MEDS: Aspirin Enteric Coated 81 MG Tablet PO SCH (07:33)
[2019-10-25] MEDS: Famotidine 20 MG TABLET PO SCH (07:34)
[2019-10-25] MEDS: Gabapentin 300 MG CAPSULE PO SCH (07:34)
[2019-10-25] MEDS: *HR* Amiodarone 200 MG TABLET PO SCH (07:34)
[2019-10-25 07:49] VITALS: BP 96/72
[2019-10-25] MEDS: Insulin LISPRO 300 UNITS/3 ML VIAL SQ SCH (10:37)
== END 2019-10-25 10:31 | disposition home or self-care (01) | DRG 236 ==
LOC: SAMDAY 06:29 → ICNU 10:10 → 2NNU 10-23 06:58
PROVIDERS: ADMIT Thoracic Surgery (Cardiothoracic Vascular Surgery); ATTEND Thoracic Surgery (Cardiothoracic Vascular Surgery)